=== PATIENT | female | born 1945 | race Caucasian/White ===

== ENCOUNTER 2019-09-11 08:49 | Outpatient (CLI) | payer MEDICARE, MEDICAID, SELFPAY ==
--- NOTE | 2019-09-11 09:01 | XR_ITS ---
WS: [id number] KUB, 09/11/2019 Clinical Data: CALCULUS OF URETER Comparison: KUB, 03/08/2019. Findings: There are numerous vascular calcifications overlying both kidneys. There are vascular calcifications of the abdominal aorta which is tortuous. No aneurysm is seen. There are vascular calcifications of t he iliac arteries and femoral arteries. No obvious intrarenal or ureteral calculi are seen but they c ould be obscured by the vascular calcifications. Degenerative changes of the lumbar vertebral bodies is noted. There is a large amount of fecal material throughout the colon. There are healed fractures of the right superior and inferior pubic ramus XR/XR KUB [id number] Impression: 1. Negative for definite renal or ureteral calculi. 2. Extensive vascular calcifications could obscure renal and ureteral calculi.
== END 2019-09-11 08:50 | disposition home or self-care (01) ==
LOC: RAD 08:56
PROVIDERS: Family Provider Family Medicine; PCP Family Medicine; Visit Provider Urology
DX: N20.1 Calculus of ureter (principal)
CPT/HCPCS: 74018

== ENCOUNTER 2019-10-12 16:28 | Emergency (ER) | payer MEDICARE, MEDICAID, SELFPAY ==
[2019-10-12 16:31] VITALS: BP 161/88; PULSE 106; RESP 16; TEMP 38.2; O2SAT 94; BMI 19.7
--- NOTE | 2019-10-12 16:39 | ED_ITS ---
Entered by Agustina Naik, acting as scribe for HPI - Abdominal Pain General: Chief Complaint: Abdominal Pain Stated Complaint: LOW BACK/ LOW ABDOMINAL PAIN Time Seen by Provider: 10/12/19 16:39 Source: EMS Mode of arrival: EMS Limitations: altered mental status History of Present Illness: MD elicited complaint: abdominal pain (per EMS) Onset (ago): day(s) (today) Location: None Severity: mild Radiation: none Associated Symptoms: Reports dysuria; Denies chills, diarrhea, fever(s), nausea and vomiting Review of Systems Const: Denies: fever, chills, body aches or change in appetite Eyes: Denies: blurry vision or eye discomfort ENMT: Denies: throat pain or dental pain Card: Denies: chest pain Resp: Denies: shortness of breath GI: Denies: abdominal pain, nausea, vomiting or diarrhea : Reports: painful urination Musc: Denies: neck pain or back pain Skin/Breast: Denies: rash Neuro: Denies: headache Psych: Denies: depression Jadiel/Lymph: Denies: easy bruising All/Imm: Denies: hives PFSH ED PFSH: Medical History (Updated 10/12/19 @ 19:15 by Victoria Kuhn MD) Calculus of left ureter History of kidney stones Obstructive pyelonephritis Urinary tract infection, site not specified Social History Smoking and tobacco status: unknown if ever smoked Alcohol intake: never Marital status: Current occupational status: retired Physical Exam Const: COMMON NORMALS: no apparent distress and healthy appearing HENMT: COMMON NORMALS: normocephalic and head/scalp atraumatic HEAD & SCALP: normocephalic and atraumatic Eye: COMMON NORMALS: PERRL and EOMs intact bilaterally PUPIL: Yes PERRL Neck/C-Spine: COMMON NORMALS: full ROM and supple Chest: COMMONS NORMALS: inspection of chest normal and palpation of chest normal Resp: COMMON NORMALS: normal respiratory effort, no retractions, no use of accessory muscles and clear to auscultation bilaterally AUSCULTATION: clear to auscultation bilaterally Cardio: COMMON NORMALS: regular rate, regular rhythm and no murmurs RATE: regular rate RHYTHM: regular rhythm GI: COMMON NORMALS: normal to inspection, nondistended, normoactive bowel sounds, soft to palpation, non-tender and no masses PALPATION: Yes soft Extremity: COMMON NORMALS: normal to inspection and full ROM Neuro: COMMON NORMALS: moves all extremities and no focal motor deficits Psych: COMMON NORMALS: mental status grossly normal, thought process normal and cooperative THOUGHT PROCESS: normal thought process Skin: COMMON NORMALS: no rashes or lesions noted and no wounds GENERAL SKIN EXAM: no rashes or lesions noted Course Vital Signs: Vital signs: Vital Signs Temperature 100.8 F H 10/12/19 16:31 Pulse Rate 67 10/13/19 01:00 Respiratory Rate 16 10/13/19 01:00 Blood Pressure 161/88 10/12/19 16:31 Pulse Oximetry 97 10/13/19 01:00 MDM - Abdominal Pain MDM Narrative: Medical decision making narrative: I took this patient over from Dr. Hancock. Patient does have a urinary tract infection. Will start on Macrobid and given IV Rocephin here. Patient is stable to go back to the snf and is to return if worsening. Lab Data: Labs: Lab Results 10/12/19 10/12/19 10/12/19 Range/Units 17:03 17:03 18:00 WBC 13.2 H (4.0-10.0) 10^3/ uL RBC 3.95 L (4.1-5.3) 10^6/u L Hgb 11.6 (11.5-15.3) g/dL Hct 34.2 L (37.0-47.0) % MCV 86.6 (81-99) fL MCH 29.4 (28.0-34.0) pg MCHC 33.9 (30.0-36.0) g/dL RDW 12.3 (12.1-15.1) % Plt Count 292 (130-400) 10^3/c mm MPV 8.7 (7.4-10.4) fL Neut % (Auto) 79.8 % Lymph % (Auto) 11.3 % [place] % (Auto) 8.3 % Eos % (Auto) 0.2 % Baso % (Auto) 0.2 % Neut # (Auto) 10.6 H (1.8-7.7) 10^3/u L Lymph # (Auto) 1.5 (0.8-4.8) 10^3/u L [place] # (Auto) 1.1 H (0.2-0.9) 10^3/u L Eos # (Auto) 0.0 (0.0-0.8) 10^3/u L Baso # (Auto) 0.0 (0.0-0.1) 10^3/u L Nucleated RBC % (a uto) 0 % Nucleated RBCs # 0.0 /100WBC Sodium 135 L (136-145) mmol/L Potassium 3.7 (3.5-5.1) mmol/L Chloride 96 L (98-107) mmol/L Carbon Dioxide 24 (22-29) mmol/L Anion Gap 18.7 (5-19) BUN 11 (8-23) mg/dL Creatinine 0.6 (0.5-0.9) mg/dL Glucose 126 H (65-115) mg/dL Calcium 9.8 (8.5-10.5) mg/dL Total Bilirubin 0.9 (0.15-1.2) mg/dL AST 18 (0-32) U/L ALT 11 (0-33) U/L Alkaline Phosphata se 114 H (35-105) IU/L Total Protein 7.3 (6.6-8.7) g/dL Albumin 3.9 (3.5-5.2) g/dL Globulin 3.4 (1.3-4.6) g/dL Urine Color Yellow (Yellow) Urine Appearance Hazy A (CLEAR) Urine pH 7 (5-7) Ur Specific Gravit y 1.005 (1.005-1.030) Urine Protein Trace (Negative) Urine Glucose (UA) Norm (Normal) Urine Ketones 1+ H (Negative) Urine Occult Blood Neg (Negative) Urine Nitrate Positive H (Negative) Urine Bilirubin Neg (NEGATIVE) Urine Urobilinogen Norm (Negative) mg/dL Ur Leukocyte Aixa ase Negative (Negative) Urine RBC 0-4 H (0-2) /hpf Urine WBC 5-10 H (0-5) /hpf Ur Squamous Epith Cells 25-40 H (0-5) Urine Bacteria 2+ H (NONE) Discharge Plan Discharge Patient Disposition: Home, Self-Care Clinical Impression: Acute cystitis Qualifiers: Hematuria presence: without hematuria Qualified Code(s): N30.00 - Acute cystitis without hematuria Condition: Stable Prescriptions: New Macrobid 100 mg capsule 100 mg PO BID 7 Days Qty: 14 RF: 0 No Action acetaminophen [Tylenol] 325 mg capsule 650 mg PO Q6H PRN (Reason: Pain) RF: 0 levothyroxine 25 mcg capsule 25 mcg PO DAILY RF: 0 lisinopril 10 mg tablet 10 mg PO DAILY RF: 0 multivitamin Tablet 1 tab PO QAM RF: 0 Discharge Orders: Discharge Order (Routine); Ordered 10/12/19 Ordered By: Victoria Kuhn Referrals: Lzieth Britton MD [Primary Care Provider] - Discharge Diet: Advance as tolerated Discharge Activity: Resume usual activity Patient Instructions: Urinary Tract Infection in Women (ED) Coding Level of Care Code ED Floor Covering Printer for Chg Fwd Exam Comprehensive The documentation recorded by the Gumaro eubanks Bridget Annette, accurately reflects the service I personally performed and the decisions made by Bam rasmussen Korby, MD Oct 12, 2019 16:28
[2019-10-12 17:16] LABS: Basophils % 0.2 %; Eosinophils % 0.2 %; Hematocrit 34.2 % (37.0-47.0); Hemoglobin 11.6 g/dL (11.5-15.3); Lymphocytes # 1.5 10^3/uL (0.8-4.8); Lymphocytes % 11.3 %; Mean Corpuscular HGB Conc 33.9 g/dL (30.0-36.0); Mean Corpuscular Hemoglobin 29.4 pg (28.0-34.0); Mean Corpuscular Volume 86.6 fL (81-99); Mean Platelet Volume 8.7 fL (7.4-10.4); Monocytes # 1.1 10^3/uL (0.2-0.9); Monocytes % 8.3 %; Neutrophils # 10.6 10^3/uL (1.8-7.7); Neutrophils % 79.8 %; Nucleated Red Blood Cells % 0 %; Platelet Count 292 10^3/cmm (130-400); Red Blood Count 3.95 10^6/uL (4.1-5.3); Red Cell Distribution Width 12.3 % (12.1-15.1); White Blood Count 13.2 10^3/uL (4.0-10.0)
[2019-10-12 17:34] LABS: Alanine Aminotransferase 11 U/L (0-33); Albumin Level 3.9 g/dL (3.5-5.2); Alkaline Phosphatase 114 IU/L (35-105); Anion Gap 18.7 (5-19); Aspartate Amino Transferase 18 U/L (0-32); Blood Urea Nitrogen 11 mg/dL (8-23); Calcium 9.8 mg/dL (8.5-10.5); Carbon Dioxide 24 mmol/L (22-29); Chloride 96 mmol/L (98-107); Globulin 3.4 g/dL (1.3-4.6); Glucose 126 mg/dL (65-115); Potassium 3.7 mmol/L (3.5-5.1); Sodium 135 mmol/L (136-145); Total Bilirubin 0.9 mg/dL (0.15-1.2); Total Protein 7.3 g/dL (6.6-8.7)
[2019-10-12] MEDS: cefTRIAXone 1,000 MG in sodium chloride 0.9% (plus) 50 ML 100 MG IV (18:26)
[2019-10-12 18:32] LABS: Add Urine Microscopic? YES; Bilirubin Urine Neg (NEGATIVE); Blood Urine Neg (Negative); Glucose Urine UA Norm (Normal); Ketones Urine 1+ (Negative); Leukocyte Esterase Urine Negative (Negative); Nitrate Urine Positive (Negative); Protein Urine Trace (Negative); Specific Gravity, Urine 1.005 (1.005-1.030); Urine Appearance Hazy (CLEAR); Urine Color Yellow (Yellow); Urobilinogen Urine Norm (Negative); pH Urine 7 (5-7)
[2019-10-12 18:44] LABS: RBC Urine 0-4 /hpf (0-2)
[2019-10-12 18:45] LABS: Add Urine Culture? No; Bacteria Urine 2+; Squamous Epithelial Cell Urine 25-40 (0-5)
[2019-10-13 01:00] VITALS: PULSE 67; RESP 16; O2SAT 97
[2019-10-13 03:00] VITALS: PULSE 72; RESP 18; O2SAT 96
--- NOTE | 2019-10-13 03:30 | PC.NURSE ---
Introduced self to patient and initiated vital signs. Pt is A&O x 4. Pt states that the reason for the ER visit today is due to bilateral ear pain which presented around 0030 this morning. Reassured patient of needs and will continue to monitor.
[2019-10-13 06:00] VITALS: PULSE 78; RESP 16; O2SAT 97
[2019-10-13 07:30] VITALS: BP 109/76; PULSE 89; RESP 16; TEMP 37.7; O2SAT 95
== END 2019-10-13 07:32 | disposition home or self-care (01) ==
PROVIDERS: Family Medicine; Emergency Provider Emergency Medicine; Family Provider Family Medicine; PCP Family Medicine
DX: N30.00 Acute cystitis without hematuria (principal)
CPT/HCPCS: 36415; 51701; 80053; 81001; 85025; 87040; 96365; 99284; J0696

== ENCOUNTER 2020-06-26 13:12 | Inpatient (IN) | payer MEDICARE, MEDICAID, SELFPAY ==
[2020-06-26] VITALS (10 sets, daily range): BP systolic 96–211; BP diastolic 62–145; PULSE 83–128; RESP 16–49; TEMP 36.2–36.7; O2SAT 95–100; BMI 15.6
--- NOTE | 2020-06-26 13:54 | CTR_ITS ---
PROCEDURE INFORMATION: Exam: CT Head Without Contrast Exam date and time: 06/26/2020 2:09 PM Age: 75 years old Clinical indication: Other: Symptoms of acute stroke; Prior surgery TECHNIQUE: Imaging protocol: Computed tomography of the head without contrast. Radiation optimization: All CT scans at this facility use at least one of these dose optimization techniques: automated exposure control; mA and/or kV adjustment per patient size (includes targeted exams where dose is matched to clinical indication); or iterative reconstruction. COMPARISON: CT head wo con* [id number] 06/14/2018 3:19 PM RADIATION DOSE METRICS: Total DLP (mGy-cm): 791.61 FINDINGS: Brain: Chronic encephalomalacia is present in the bilateral cerebellar hemispheres, bilateral occipital lobes, bilateral posterior parietal lobes, bilateral frontal lobes, and the right frontoparietal convexity. There is no acute intracranial hemorrhage, cerebral edema, or midline shift. Benign calcifications are noted in the bilateral basal ganglia. Chronic microvascular ischemic changes are seen in the periventricular white matter. Advanced cerebral and cerebellar volume loss is present. Cerebral ventricles: Moderate ex vacuo dilation of the ventricular system is noted. Bones/joints: No acute fracture. Paranasal sinuses: There is no acute sinusitis. Mastoid air cells: The mastoid air cells are clear. Orbital cavity: The included orbital structures are unremarkable. Vasculature: Atherosclerotic calcifications are seen involving the cavernous carotid arteries. Soft tissues: Unremarkable. CT/CT head wo con* [id number] IMPRESSION: 1. No acute intracranial abnormality. 2. Chronic findings as discussed above. 3. [place] Stroke Program Early CT Score (ASPECTS) = 10 Radiation Dose CTDIVOL = (mGy): DLP = 791.61 (mGy-cm)
--- NOTE | 2020-06-26 13:54 | ECG_ITS ---
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1945 Requested By: Keisha Melendez I Order Number: [id number] Reading MD: LAURYN KRISHNAN Measurements Intervals [place] Rate: 124 P: -79 PA: 96 QRS: 1 QRSD: 72 T: -47 QT: 305 QTc: 439 Interpretive Statements Sinus TACHYCARDIA INDETERMINATE AXIS PATTERN CONSISTENT WITH PULMONARY DISEASE PROBABLE INFERIOR MYOCARDIAL INFARCTION , OF INDETERMINATE AGE [35 ms Q WAVE IN II/aVF] MODERATE T-WAVE ABNORMALITY, CONSIDER LATERAL ISCHEMIA [-0.1+ mV T WAVE IN I/aVL/V5/V6] Compared to ECG 08/23/2018 10:44:34 There is sinus tachycardia Electronically Signed On 06-26-2020 21:04:04 CDT by LAURYN KRISHNAN [email or web address]
--- NOTE | 2020-06-26 13:55 | XR_ITS ---
WS: [id number] Exam: XR chest 1V portable [id number] Date/Time of Exam: 06/26/2020 1:55 PM Reason For Exam: AMS Comparison 06/14/2018. The lungs are fully expanded and clear. Heart size is normal. The mediastinum is not widened. Promine nt hiatal hernia. Signs of median sternotomy. No pleural effusions. Regional bony elements are intact . XR/XR chest 1V portable [id number] IMPRESSION: 1. No acute cardiopulmonary finding. 2. Prominent hiatal hernia. No change.
--- NOTE | 2020-06-26 13:56 | W.ED.AMS ---
HPI - Altered Mental Status General: Chief Complaint: Altered Mental Status Stated Complaint: DECREASED LOC/ COVID POSITIVE Time Seen by Provider: 06/26/20 13:20 Source: family (Guardian, Jacki Barcenas) and EMS Mode of arrival: EMS Limitations: altered mental status History of Present Illness: HPI narrative: Patient is a 75-year-old resident of a intermediate who was recently diagnosed with COVID-19 but has completed her 14-day quarantine and had been improving until today when she became unresponsive. The intermediate denies any fever, denies any vomiting, and her guardian wanted the patient evaluated in the emergency department. When I spoke to her guardian she said the patient has had a history of pneumonia, UTI, and has a big kidney stone that could not be surgically removed and so a stent was placed. She wanted to be checked for pneumonia, UTI especially. MD complaint: altered mental status and decreased responsiveness Onset (ago): hour(s) Review of Systems General: Reports: ROS unobtainable due to mental status PFSH ED PFSH: Medical History (Reviewed 06/26/20 @ 14:00 by Keisha Melendez [place], [facility] [place] Calculus of left ureter History of kidney stones Obstructive pyelonephritis Urinary tract infection, site not specified Family History Family/Other Diabetes Mother No problems noted. Father No problems noted. Social History (Reviewed 06/26/20 @ 14:00 by Keisha Melendez MD, [facility] [place] Smoking and tobacco status: unknown if ever smoked Alcohol intake: never Marital status: Current occupational status: retired Physical Exam Const: COMMON NORMALS: no acute distress EXAM LIMITATIONS: altered mental status NUTRITIONAL APPEARANCE: underweight HENMT: COMMON NORMALS: normocephalic and atraumatic HEAD & SCALP: normocephalic and atraumatic Resp: COMMON NORMALS: normal respiratory effort, No retractions, No use of accessory muscles and clear to auscultation bilaterally AUSCULTATION: clear to auscultation bilaterally Cardio: COMMON NORMALS: regular rhythm, S1 normal heart sound present, S2 normal heart sound present and No murmurs present (Cardio) RATE: tachycardic RHYTHM: regular rhythm HEART SOUNDS: S1 normal heart sound present and S2 normal heart sound present Neuro: JONNA COMA SCALE: document GCS findings Jonna coma scale eye opening: Spontaneous Jonna coma scale verbal response: None Granger coma scale motor response: Localising Jonna coma scale total score: 10 Skin: GENERAL SKIN EXAM: mottling (feet) Course ED course: Patient who was brought in to the ED from a [place] with altered mental status. She appeared pretty ill in the ED. Her care was complicated by inability to obtain blood from the patient. Her blood was very thick and did not drain. She is severely dehydrated and has multiple electrolyte abnormalities including critical azotemia and significant hyernatremia, DENISE, hyperbilirubinemia. I discussed with her guardian, Jacki Barcenas when the patient first arrived. and she wanted the patient evaluated fully. After evaluation i also discussed with her again and she would like the patient to aggressively managed. The patient has DNR orders but the guardian had discussed with her family and they would like aggressive care. They would like CPR and intubation (but only if we think she can come off the vent). I explained that this is very likely the beginning of the dying process for this patient and i do not think she will do well. She voiced understanding but at this time would still want us to be aggressive. The patient is admitted for hydration and further work up. Hopefully we can get more blood samples when she is better hydrated. Consultations: Consultation #1: Dr. Hong, hospitalist and he kindly accepted the patient to his service. Vital Signs: Vital signs: Vital Signs Temperature 97.2 F L 06/26/20 23:42 Pulse Rate 83 06/26/20 23:42 Respiratory Rate 26 H 06/26/20 23:42 Blood Pressure 96/62 06/26/20 23:42 Pulse Oximetry 95 06/26/20 23:42 MDM - Altered Mental Status MDM Narrative: Medical decision making narrative: 75 year old female [place] resident with AMS. She was very dehydrated, likely dying, and is unlikely to survive this admission. She has multiple electrolyte abnormalities. She is admitted for hydration and to see if she would improve. No obvious source of infection noted but she is given empiric antibiotics. Medical Records: Attestation: I reviewed the patient's medical records. Lab Data: Attestation: I reviewed the patient's lab results. Labs: Lab Results 10/29/20 10/29/20 10/29/20 Range/Units 15:05 18:00 18:00 WBC 26.7 H (4.0-10.0) 10^3/ uL RBC 6.18 H (4.1-5.3) 10^6/u L Hgb 17.8 H (11.5-15.3) g/dL Hct 58.7 H (37.0-47.0) % MCV 95.0 (81-99) fL MCH 28.8 (28.0-34.0) pg MCHC 30.3 (30.0-36.0) g/dL RDW 13.9 (12.1-15.1) % Plt Count 256 (130-400) 10^3/c mm MPV 11.5 H (7.4-10.4) fL Neut % (Auto) 89.2 % Lymph % (Auto) 4.2 % [place] % (Auto) 5.4 % Eos % (Auto) 0.0 % Baso % (Auto) 0.3 % Neut # (Auto) 23.87 H (1.8-7.7) 10^3/u L Lymph # (Auto) 1.1 (0.8-4.8) 10^3/u L [place] # (Auto) 1.5 H (0.2-0.9) 10^3/u L Eos # (Auto) 0.0 (0.0-0.8) 10^3/u L Baso # (Auto) 0.1 (0.0-0.1) 10^3/u L Nucleated RBC % (a uto) 0.1 % Nucleated RBCs # 0.0 /100WBC PT (12.1-14.9) SECO NDS INR (0.8-1.2) Sodium 159 H (136-145) mmol/L Potassium 4.0 (3.5-5.1) mmol/L Chloride 115 H (98-107) mmol/L Carbon Dioxide 23 (22-29) mmol/L Anion Gap 25.0 H (5-19) BUN 87 H* D (8-23) mg/dL Creatinine 1.7 H (0.5-0.9) mg/dL GFR Calculation Not Reportable Glucose 202 H (65-115) mg/dL Calculated Osmolal ity 360 H (285-295) mOsm/k g Calcium 10.9 H (8.5-10.5) mg/dL Total Bilirubin 1.3 H (0.15-1.2) mg/dL AST 171 H (0-32) U/L ALT 210 H (0-33) U/L Alkaline Phosphata se 203 H (35-105) IU/L Troponin T Gen 5 n g/L (0-10) ng/L C-Reactive Protein 42.1 H (0.0-4.9) mg/L Total Protein 8.2 (6.6-8.7) g/dL Albumin 3.9 (3.5-5.2) g/dL Globulin 4.3 (1.3-4.6) g/dL Urine Color Dark yellow (Yellow) Urine Appearance Hazy A (CLEAR) Urine pH 5 (5-7) Ur Specific Gravit y 1.020 (1.005-1.030) Urine Protein 1+ H (Negative) Urine Glucose (UA) Norm (Normal) Urine Ketones Negative (Negative) Urine Blood Trace H (Negative) Urine Nitrate Negative (Negative) Urine Bilirubin 1+ H (Negative) Urine Urobilinogen 4 H (Negative) mg/dL Ur Leukocyte [place]ixa ase Negative (Negative) Urine RBC 0-4 H (0-2) /hpf Urine WBC None (0-5) /hpf Ur Squamous Epith Cells 5-10 H (0-5) /hpf Amorphous Sediment 3+ /hpf Urine Bacteria 2+ H (NONE) /hpf 06/26/20 06/26/20 Range/Units 19:51 20:12 WBC (4.0-10.0) 10^3/ uL RBC (4.1-5.3) 10^6/u L Hgb (11.5-15.3) g/dL Hct (37.0-47.0) % MCV (81-99) fL MCH (28.0-34.0) pg MCHC (30.0-36.0) g/dL RDW (12.1-15.1) % Plt Count (130-400) 10^3/c mm MPV (7.4-10.4) fL Neut % (Auto) % Lymph % (Auto) % [place] % (Auto) % Eos % (Auto) % Baso % (Auto) % Neut # (Auto) (1.8-7.7) 10^3/u L Lymph # (Auto) (0.8-4.8) 10^3/u L [place] # (Auto) (0.2-0.9) 10^3/u L Eos # (Auto) (0.0-0.8) 10^3/u L Baso # (Auto) (0.0-0.1) 10^3/u L Nucleated RBC % (a uto) % Nucleated RBCs # /100WBC PT 18.10 H (12.1-14.9) SECO NDS INR 1.45 H (0.8-1.2) Sodium (136-145) mmol/L Potassium (3.5-5.1) mmol/L Chloride (98-107) mmol/L Carbon Dioxide (22-29) mmol/L Anion Gap (5-19) BUN (8-23) mg/dL Creatinine (0.5-0.9) mg/dL GFR Calculation Glucose (65-115) mg/dL Calculated Osmolal ity (285-295) mOsm/k g Calcium (8.5-10.5) mg/dL Total Bilirubin (0.15-1.2) mg/dL AST (0-32) U/L ALT (0-33) U/L Alkaline Phosphata se (35-105) IU/L Troponin T Gen 5 n g/L 81 H (0-10) ng/L C-Reactive Protein (0.0-4.9) mg/L Total Protein (6.6-8.7) g/dL Albumin (3.5-5.2) g/dL Globulin (1.3-4.6) g/dL Urine Color (Yellow) Urine Appearance (CLEAR) Urine pH (5-7) Ur Specific Gravit y (1.005-1.030) Urine Protein (Negative) Urine Glucose (UA) (Normal) Urine Ketones (Negative) Urine Blood (Negative) Urine Nitrate (Negative) Urine Bilirubin (Negative) Urine Urobilinogen (Negative) mg/dL Ur Leukocyte Aixa ase (Negative) Urine RBC (0-2) /hpf Urine WBC (0-5) /hpf Ur Squamous Epith Cells (0-5) /hpf Amorphous Sediment /hpf Urine Bacteria (NONE) /hpf EKG Data^: EKG 1: Attestation: I personally reviewed and interpreted this EKG as follows: EKG interpretation date: 06/26/20 EKG interpretation time: 14:05 Prior EKG tracings: not available for review Computer generated interpretation: [facility] [address] [place] [address] Electrocardiograph Report Signed Patient: Nicol Hernandes #: [id number] : 5Acct#:[id number] Age/Sex: 75 / FADM Date: 06/26/20 [facility] Attending Dr: Ordering Provider/Ordering MD: Keisha Melendez MD, [facility] [place] of Service: 06/26/20 Procedure(s): ECG 12 lead EKG Accession Number(s): [id number] Report [id number]: [id number] [facility] Test Date: 2020-06-26 Pat Name: Bree Hernandes Department: Room: Gender: Female 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1945 Requested By: Keisha Melendez I Order Number: [id number] Reading MD: CROW CARMICHAEL Measurements Intervals [place] Rate: 124 P: -79 [place]: 96 QRS: 1 QRSD: 72 T: -47 QT: 305 QTc: 439 Interpretive Statements Sinus TACHYCARDIA INDETERMINATE AXIS PATTERN CONSISTENT WITH PULMONARY DISEASE PROBABLE INFERIOR MYOCARDIAL INFARCTION , OF INDETERMINATE AGE [35 ms Q WAVE IN II/aVF] MODERATE T-WAVE ABNORMALITY, CONSIDER LATERAL ISCHEMIA [-0.1+ mV T WAVE IN I/aVL/V5/V6] Compared to ECG 08/23/2018 10:44:34 There is sinus tachycardia Electronically Signed On 06-26-2020 21:04:04 CDT by CROW CARMICHAEL [id number] Dictated By:Crow Carmichael MD Signed By:Crow Carmichael MDSigned Date/Time:06/26/202104 DD/ 04 Discharge Plan Discharge Patient Disposition: Admitted As Inpatient Admit Provider: Weston Hong Clinical Impression: Acute hypernatremia, Acute prerenal azotemia, Acute kidney injury, Elevated troponin Altered mental status Qualifiers: Altered mental status type: coma Coma depth: Jonna coma 9-12 Coma timing: in the field (EMT or ambulance) Qualified Code(s): R40.2421 - Gr[place] coma scale score 9-12, in the field [EMT or ambulance] Condition: Stable Interventions: ED Discharge Assessment Last Done: 06/26/20 23:19 ED Charges Last Done: 06/26/20 23:19 Discharge Date/Time: 06/26/20 23:38 Coding Level of Care Code ED Diesel Service Apprentice for Chg Fwd Exam Detailed
[2020-06-26 15:29] LABS: Urine Appearance Hazy (CLEAR); Urine Color Dark Yellow (Yellow)
[2020-06-26 15:30] LABS: Add Urine Microscopic? YES; Bilirubin Urine 1+ (Negative); Blood Urine Trace (Negative); Glucose Urine UA Norm (Normal); Ketones Urine Negative (Negative); Leukocyte Esterase Urine Negative (Negative); Nitrate Urine Negative (Negative); Protein Urine 1+ (Negative); Urobilinogen Urine 4 mg/dL (Negative); pH Urine 5 (5-7)
[2020-06-26 15:38] LABS: RBC Urine 0-4 /hpf (0-2)
[2020-06-26 15:39] LABS: Add Urine Culture? No; Amorphous Sediment Urine 3+ /hpf; Bacteria Urine 2+ /hpf
[2020-06-26 18:22] LABS: Basophils # 0.1 10^3/uL (0.0-0.1); Basophils % 0.3 %; Hematocrit 58.7 % (37.0-47.0); Hemoglobin 17.8 g/dL (11.5-15.3); Lymphocytes # 1.1 10^3/uL (0.8-4.8); Lymphocytes % 4.2 %; Mean Corpuscular HGB Conc 30.3 g/dL (30.0-36.0); Mean Corpuscular Hemoglobin 28.8 pg (28.0-34.0); Mean Platelet Volume 11.5 fL (7.4-10.4); Monocytes # 1.5 10^3/uL (0.2-0.9); Monocytes % 5.4 %; Neutrophils # 23.87 10^3/uL (1.8-7.7); Neutrophils % 89.2 %; Nucleated Red Blood Cells % 0.1 %; Platelet Count 256 10^3/cmm (130-400); Red Blood Count 6.18 10^6/uL (4.1-5.3); Red Cell Distribution Width 13.9 % (12.1-15.1); White Blood Count 26.7 10^3/uL (4.0-10.0)
[2020-06-26] MEDS: sodium chloride 0.9% 1,000 ML 999 ML IV (18:24)
--- NOTE | 2020-06-26 18:26 | CTR_ITS ---
PROCEDURE INFORMATION: Exam: CT Chest Without Contrast Exam date and time: 06/26/2020 6:32 PM Age: 75 years old Clinical indication: Abdominal tenderness; Shortness of breath; Patient HX: Best images possible. PT AMS; Additional info: Altered mental status TECHNIQUE: Imaging protocol: Computed tomography of the chest without contrast. Radiation optimization: All CT scans at this facility use at least one of these dose optimization techniques: automated exposure control; mA and/or kV adjustment per patient size (includes targeted exams where dose is matched to clinical indication); or iterative reconstruction. COMPARISON: CT abdomen pelvis wo con [id number] 06/15/2018 3:04 PM RADIATION DOSE METRICS: Total DLP (mGy-cm): 919 FINDINGS: Lungs: Patchy very subtle ground-glass interstitial lung disease right upper and right lower lobe which could reflect active interstitial pneumonitis. No visible consolidation. Left lung without visible active interstitial or alveolar airspace disease. Pleural space: Unremarkable. No pneumothorax. No pleural effusion. Heart: Advanced 3 vessel coronary artery disease. No visible cardiomegaly. No visible pericardial effusion. Status post sternotomy chest and CABG. Mediastinal space: Large hiatal hernia. Nonocclusive mucous in the distal trachea to the mo and proximal bilateral mainstem bronchus. Aorta: Tortuous thoracic aorta which can be seen in hypertensive cardiovascular disease. Advanced arteriosclerosis. Lymph nodes: No visible active mediastinal or hilar lymphadenopathy. Bones/joints: Marked increase in the thoracic kyphosis with advanced osteopenia/osteoporosis. Old compression deformity T8. No visible acute osseous abnormality. Soft tissues: Unremarkable. Other findings: Motion artifact. IMPRESSION: 1. Patchy very subtle ground-glass interstitial lung disease right upper and right lower lobe which could reflect active interstitial pneumonitis. 2. Other nonurgent, nonemergent, chronic, and age related findings as detailed in text above. PROCEDURE INFORMATION: Exam: CT Abdomen And Pelvis Without Contrast Exam date and time: 06/26/2020 6:32 PM Age: 75 years old Clinical indication: Abdominal tenderness; Shortness of breath; Patient HX: Best images possible. PT AMS; Additional info: Altered mental status TECHNIQUE: Imaging protocol: Computed tomography of the abdomen and pelvis without contrast. Radiation optimization: All CT scans at this facility use at least one of these dose optimization techniques: automated exposure control; mA and/or kV adjustment per patient size (includes targeted exams where dose is matched to clinical indication); or iterative reconstruction. COMPARISON: CT abdomen pelvis wo con [id number] 06/15/2018 3:04 PM RADIATION DOSE METRICS: Total DLP (mGy-cm): 919 FINDINGS: Liver: Unremarkable. No mass. Gallbladder and bile ducts: Enlarged gallbladder. Suspected moderate amount of gallbladder sludge. No visible form cholelithiasis. Pancreas: Mildly atrophic pancreas. No visible pancreatic ductal ectasia. Spleen: Normal. No splenomegaly. Adrenal glands: Normal. No mass. Kidneys and ureters: Kidneys unremarkable for age. No hydronephrosis or perinephric fluid evident. Extensive renal arteriosclerosis. Stomach and bowel: Large hiatal hernia. Rectal fecal impaction. No visible diverticulitis. Currently nonobstructive bowel pattern. No visible adynamic or reactive ileus. Appendix: No evidence of appendicitis. Intraperitoneal space: No visible intraperitoneal ascites. Vasculature: Infrarenal fusiform abdominal aortic aneurysm measuring approximately 29 mm in AP diameter in 30 mm in transverse diameter. Advanced arterial sclerotic disease. Tortuous abdominal aorta which can be seen in hypertensive disease. Extensive arteriosclerosis of all vascular structures within the field of view. Lymph nodes: Unremarkable. No enlarged lymph nodes. Urinary bladder: Urinary bladder unremarkable. Reproductive: Status post hysterectomy. Bones/joints: Advanced degenerative disc disease of the spine. Mild scoliotic curvature. Osteopenia/osteoporosis. Facet arthrosis. No visible acute osseous abnormality. Soft tissues: Cachexia. CT/CT chest abd pel wo con IMPRESSION: 1. Currently no visible evidence of acute abdominal or pelvic pathologic process. 2. Rectal fecal impaction. 3. Enlarged gallbladder. Suspected moderate amount of gallbladder sludge. No visible form cholelithiasis. 4. Stable mild infrarenal fusiform aneurysmal dilatation of the abdominal aorta. 5. Advanced arterial sclerotic disease. 6. Other nonurgent, nonemergent, chronic, and age related findings as detailed in text above. Radiation Dose CTDIVOL = (mGy): DLP = 919~919 (mGy-cm)
[2020-06-26 19:13] LABS: Alanine Aminotransferase 210 U/L (0-33); Albumin Level 3.9 g/dL (3.5-5.2); Alkaline Phosphatase 203 IU/L (35-105); Aspartate Amino Transferase 171 U/L (0-32); C Reactive Protein 42.1 mg/L (0.0-4.9); Calcium 10.9 mg/dL (8.5-10.5); Carbon Dioxide 23 mmol/L (22-29); Chloride 115 mmol/L (98-107); Globulin 4.3 g/dL (1.3-4.6); Glucose 202 mg/dL (65-115); Osmolality Calculated 360 mOsm/kg (285-295); Sodium 159 mmol/L (136-145); Total Bilirubin 1.3 mg/dL (0.15-1.2); Total Protein 8.2 g/dL (6.6-8.7)
[2020-06-26 19:52] LABS: Blood Urea Nitrogen 87 mg/dL (8-23)
[2020-06-26 21:07] LABS: Troponin T (5th) Once 81 ng/L (0-10)
[2020-06-26] MEDS: piperacillin-tazobactam 3.375 GM in sodium chloride 0.9% (plus) 50 ML IV (21:25)
[2020-06-26] MEDS: dextrose 5%-sod chloride 0.45% 1,000 ML 100 ML IV (22:07)
--- NOTE | 2020-06-26 22:18 | PM.HP ---
Providers/Chief Complaint Admitting Physician: Weston Hong Primary Care Provider: Lizeth Britton MD Chief Complaint: DECREASED LOC/ COVID POSITIVE History of Present Illness 75-year-old female with a past medical history significant for obstructive uropathy, UTI/pyelonephritis and COVID-19 apparently diagnosed over 2 weeks prior who was brought to the hospital after she was found to be unresponsive. Patient was difficult to arouse at the time of my evaluation. History was obtained from review of records. Upon arrival patient's laboratory workup showed a WBC of 26.7, hemoglobin of 17.8, hematocrit of 58.7 and platelet count of 256. sodium 159, potassium 4.0, chloride 115, bicarb 23, BUN 87 and creatinine of 1.7. AST of 171, ALT of 210, alkaline phosphatase of 203. Total bilirubin of 1.3. Troponin T of 81, C reactive protein of 42.1. CT chest abdomen pelvis showed patchy very subtle ground-glass interstitial lung disease right upper and right lower lobe consistent with active interstitial pneumonitis. Rectal fecal impaction, enlarged gallbladder, infrarenal fusiform aneurysmal dilation of abdominal aorta. CT head without contrast did not show any acute abnormality. Review of Systems General: Reports: ROS unobtainable due to mental status Medications/Allergies Home Medications Medication Instructions Recorded Confirmed Last Taken Type acetaminophen 325 mg capsule 650 mg PO Q6H PRN 09/11/19 06/26/20 06/24/20 History levothyroxine 25 mcg capsule 25 mcg PO DAILY cap 09/11/19 06/26/20 06/26/20 History lisinopril 10 mg tablet 10 mg PO DAILY tab 09/11/19 06/26/20 06/26/20 History multivitamin 1 tab PO DAILY 09/11/19 06/26/20 06/26/20 History bisacodyl 10 mg [place] DAILY PRN 06/26/20 06/26/20 Unknown History magnesium hydroxide [Milk of 400 mg PO DAILY PRN 06/26/20 06/26/20 07/01/19 History Magnesia] Allergies Allergy/AdvReac Type Severity Reaction Status Date / Time procaine [From Novocain] Allergy NA Verified 09/04/19 08:17 PFSH Acute PFSH: Medical History Calculus of left ureter History of kidney stones Obstructive pyelonephritis Urinary tract infection, site not specified Family History Family/Other Diabetes Mother No problems noted. Father No problems noted. Social History Smoking and tobacco status: unknown if ever smoked Alcohol intake: never Marital status: Current occupational status: retired Vitals/I&O/Wt Last Vital Signs Temp 97.2 F L 06/26/20 23:42 Pulse 83 06/26/20 23:42 Resp 26 H 06/26/20 23:42 BP 96/62 06/26/20 23:42 Pulse Ox 95 06/26/20 23:42 06/26/20 06/26/20 06/27/20 14:59 22:59 06:59 Intake Total 1050 / 1050 Balance 1050 / 1050 Weight last 48 hrs Weight 36.287 kg Physical Exam Narrative: EXAM NARRATIVE: General: Unresponsive, slight arousable to painful stimuli HEENT: grossly unremarkable CHEST: non-labored respiration CVS: Sinus tachy Abd: non-distended Ext ; no edema Data : 06/26/20 18:00 06/26/20 18:00 Micro: Microbiology 06/26/20 15:45 Blood Culture - Preliminary Blood SPECIMEN COLLECTED 06/26/20 15:30 Blood Culture - Preliminary Blood SPECIMEN COLLECTED A&P Assessment and plan (1) Altered mental status: Etiology multi-factorial Baseline unclear Obtain ABG D/w family code status - DNI/DNR Status: Acute Qualifiers: Altered mental status type: coma Coma depth: [place] coma 9-12 Coma timing: in the field (EMT or ambulance) Qualified Code(s): R40.2421 - [place] coma scale score 9-12, in the field [EMT or ambulance] (2) Acute hypernatremia: NS bolus x 2 Free h20 deficit d5w at 75cchr monitor bmp NPO Status: Acute (3) Acute kidney injury: Creatinine 1.7 Repeat bmp in am renally dose medication rivera insertion Status: Acute (4) Elevated troponin: Consider cardiology consult ECHO in am cardiac tele Status: Acute (5) Sepsis: with hypotension Blood culture x 2 urine culture broad spectrum antibuotics Status: Acute (6) Acute respiratory failure with hypoxia: supplemental o2 Bilateral interstitial pneumonitis Recent COVID19 infection Status: Acute Attestations Medical Necessity Statement*: Patient is admitted with sepsis, hypernatremia, acute kidney injury, respiratory failure will likely require over 2 kidney stay in hospital Time Spent in Patient Care: Greater than 35 minutes Coding Level of Care Code 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
[2020-06-26 22:22] LABS: INR 1.45 (0.8-1.2)
[2020-06-26 22:53] LABS: SARS Covid-2 Antigen Negative (Negative)
[2020-06-27] VITALS (59 sets, daily range): BP systolic 84–164; BP diastolic 38–105; PULSE 78–119; RESP 4–39; TEMP 36.3–37.1; O2SAT 92–98
[2020-06-27 00:26] LABS: ABG PCO2 30.1 mmHg (35-45); ABG PH Result 7.39 (7.35-7.45); Arterial Blood Gas Hematocrit 46.7 % (37-47); Base Excess ABG -5.3 mmol/L (-2.0-2.0); Blood Gas Sample Site Brachial, right; Blood Gas Sample Type Arterial; Carboxyhemoglobin 0.8 %THgb (0.4-20.1); HCO3 ABG 18.3 mmol/L (22-26); Ionized Calcium Level - ABG 1.2 mmol/L (1.1-1.4); Methemoglobin 0.9 % (0.4-1.5); Oxygen Device NC; Oxygen Saturation ABG 96.5; PO2 ABG 81.2 mmHg (80.0-100.0); Potassium Level - ABG 2.9 mmol/L (3.5-5.0); Total Hemoglobin 15.2 g/dL (12-16)
--- NOTE | 2020-06-27 01:24 | PC.PHAR ---
Vancomycin is dosed at 500mg IVPB every 48 hours to produce a predicted trough level of 14.59 (population based pharmacokinetic analysis). A trough level has been ordered from the lab to be obtained before the third dose to confirm and adjust if needed.
[2020-06-27] MEDS: famotidine 20 mg/2 mL INJ IVP ×2 (01:29→14:37)
[2020-06-27] MEDS: dextrose 5% 1,000 ML 75 ML IV ×2 (01:30→17:10)
[2020-06-27] MEDS: vancomycin 500 MG in sodium chloride 0.9% (plus) 100 ML 200 MG IV (02:49)
[2020-06-27 05:35] LABS: Hemoglobin 16.3 g/dL (11.5-15.3); Mean Corpuscular HGB Conc 30.8 g/dL (30.0-36.0); Mean Corpuscular Hemoglobin 29.2 pg (28.0-34.0); Platelet Count 214 10^3/cmm (130-400); Red Blood Count 5.58 10^6/uL (4.1-5.3); Red Cell Distribution Width 13.9 % (12.1-15.1); White Blood Count 20.6 10^3/uL (4.0-10.0)
[2020-06-27 05:48] LABS: Lactic Sepsis W/Reflex 3.2 mmol/L (0.5-2.2)
[2020-06-27 06:26] LABS: Alanine Aminotransferase 151 U/L (0-33); Albumin Level 3.3 g/dL (3.5-5.2); Alkaline Phosphatase 157 IU/L (35-105); Aspartate Amino Transferase 87 U/L (0-32); Blood Urea Nitrogen 79 mg/dL (8-23); Calcium 9.1 mg/dL (8.5-10.5); Carbon Dioxide 17 mmol/L (22-29); Chloride 120 mmol/L (98-107); Globulin 3.5 g/dL (1.3-4.6); Glucose 329 mg/dL (65-115); Magnesium 2.6 mg/dL (1.7-2.3); Osmolality Calculated 356 mOsm/kg (285-295); Sodium 155 mmol/L (136-145); Total Protein 6.8 g/dL (6.6-8.7)
[2020-06-27 07:11] LABS: Reflex Lactate Order REFLEX LACTIC ORDERD
[2020-06-27 07:31] LABS: Slide Review Slide Review Perform
--- NOTE | 2020-06-27 07:31 | USCV_ITS ---
Bree Hernandes Age: 75 Gender: F : 1945 Exam Date: 06/27/2020 08:43 Ordering Phys: Jake Malik MD Technologist: Yovanny Hutton [place] [facility] [place]: chest pain BP: 132 / 73 HR: 115 Rhythm: Sinus Technical Quality: Adequate MEASUREMENTS (Male / Female) Normal Values 2D ECHO LV Diastolic Diameter PLAX 2.1 cm 4.2 - 5.9 / 3.9 - 5.3 cm LV Systolic Diameter PLAX 1.6 cm IVS Diastolic Thickness 1.0 cm 0.6 - 1.0 / 0.6 - 0.9 cm IVS Systolic Thickness 1.1 cm LVPW Diastolic Thickness 1.0 cm 0.6 - 1.0 / 0.6 - 0.9 cm LVPW Systolic Thickness 1.1 cm LVOT Diameter 1.9 cm LV Ejection Fraction 2D Teich 52.5 % LV Ejection Fraction MOD 2C 56.9 % LV Ejection Fraction 2C AL 58.0 % LA Diameter 2.4 cm LA Width 2.3 cm LA Height 3.3 cm RA Width 2.1 cm RA Height 2.8 cm M-MODE LV Diastolic Diameter MM 3.0 cm 4.2 - 5.9 / 3.9 - 5.3 cm LV Systolic Diameter MM 1.6 cm LV Ejection Fraction MM Teich 77.8 % IVS Diastolic Thickness MM 0.8 cm 0.6 - 1.0 / 0.6 - 0.9 cm IVS Systolic Thickness MM 1.4 cm LVPW Diastolic Thickness MM 0.8 cm 0.6 - 1.0 / 0.6 - 0.9 cm LVPW Systolic Thickness MM 1.1 cm RV Diastolic Diameter MM 1.1 cm Aortic Annulus Diameter 2.8 cm LA Ao Ratio MM 0.9 MV E Point Septal Separation 0.3 cm DOPPLER AV Peak Velocity 175.0 cm/s LVOT Peak Velocity 125.0 cm/s AV Area Cont Eq vti 2.3 cm squared AV Area Cont Eq pk 2.1 cm squared MV Area PHT 5.0 cm squared Mitral E to A Ratio 0.6 MV E' Velocity 33.5 cm/s Mitral E to MV E' Ratio 7.9 Mitral E to LV E' Lateral Ratio 11.3 Mitral E to LV E' Septal Ratio 6.1 TR Peak Velocity 149.0 cm/s TR Peak Gradient 8.9 mmHg TV Peak E Velocity 66.0 cm/s Right Atrial Pressure 3.0 mmHg Pulmonary Artery Systolic Pressu 11.9 mmHg PV Peak Velocity 111.0 cm/s FINDINGS Left Ventricle Small left ventricular cavity size. Hyperdynamic left ventricular systolic function. Moderate to severe left ventricle hypertrophy. Left ventricle estimated ejection fraction 77%.Grade I/IV diastolic dysfunction (abnormal relaxation filling pattern), normal to mildly elevated filling pressures. No significant gradient across the LVOT or aortic valve noted. Right Ventricle The right ventricle is normal in size and function. Right Atrium The right atrium is normal in size. Left Atrium The left atrium is normal in size. Mitral Valve Moderately thickened mitral valve. Moderate mitral annular calcification. No mitral valve stenosis. No mitral valve regurgitation. Aortic Valve Severely calcified annulus of aortic valve.moderate aortic valve calcification. No aortic valve stenosis. No aortic valve regurgitation. Tricuspid Valve Structurally normal tricuspid valve without significant stenosis or regurgitation. Pulmonary artery systolic pressure is normal. Pulmonic Valve Structurally normal pulmonic valve without significant stenosis. There is no pulmonic regurgitation. Pericardium Normal pericardium without effusion. Aorta Normal ascending aorta dimension. CONCLUSIONS Please note that this is a sub optimal quality images. 1-Small left ventricular cavity size. Hyperdynamic left ventricular systolic function. Moderate to severe left ventricle hypertrophy. Left ventricle estimated ejection fraction 77%.Grade I/IV diastolic dysfunction (abnormal relaxation filling pattern), normal to mildly elevated filling pressures. No significant gradient across the LVOT or aortic valve noted. 2-Moderately thickened mitral valve. Moderate mitral annular calcification. No mitral valve stenosis. No mitral valve regurgitation. 3-Severely calcified annulus of aortic valve.moderate aortic valve calcification. No aortic valve stenosis. No aortic valve regurgitation. 4-Severely calcified annulus of aortic valve.moderate aortic valve calcification. No aortic valve stenosis. No aortic valve regurgitation. 5-There is no pericardial effusion. 6-Pulmonary artery systolic pressure is within normal limits. 7-Due to poor quality and suboptimal images cannot compare with prior exam. Crow Carmichael MD (Electronically Signed) Final Date: 27 June 2020 16:49 S
[2020-06-27 07:44] LABS: Absolute Neutrophil 17.5 10^3/cmm (1.4-6.5); Absolute Segmented Neutrophil 9.5 10/cmm (1.6-7.1); Lymphocytes 7 %; Monocytes Absolute 1.4 10^3/cmm (0.1-0.6); Platelet Estimate Normal (Normal); Segmented Neutrophils 46 %; Total Cells Counted 100 (0-100)
[2020-06-27 08:06] LABS: Glucose Point of Care 227 mg/dL (70-110)
[2020-06-27 08:12] LABS: Eosinophils 0 %
[2020-06-27 08:13] LABS: D Dimer 7.49 ug/mIFEU (0-0.59)
[2020-06-27 08:20] LABS: Estmated Average Glucose 111; Hemoglobin A1C 5.5 % (4.0-6.0)
[2020-06-27 08:22] LABS: NT Pro B Type Natriuretic Pept 4018 pg/mL (0-450); Procalcitonin 1.53 ng/mL (0-0.5)
[2020-06-27 08:23] LABS: Thyroid Stimulating Hormone 0.45 uIU/mL (0.27-4.20)
[2020-06-27 08:34] LABS: Iron 22 ug/dL (37-145); Percent Saturation 14.5 % (20-50); Total Iron Binding Capacity 151 mcg/dl; Unsaturated Iron Binding 129 ug/dL (112-347)
[2020-06-27 08:45] LABS: Lactic Acid level (Lactate) 2.5 mmol/L (0.5-2.2)
[2020-06-27] MEDS: ipratropium-albuterol 3 mL Neb INHALATION (09:25)
[2020-06-27] MEDS: budesonide 0.5 mg/2 mL Neb INHALATION (09:25)
--- NOTE | 2020-06-27 09:37 | PC.RESP ---
Per Dr. Araya, budesonide and duoneb given with mask treatment. Door closed, therapist stood as far away as possible during treatment and for 10 minutes after treatments. Treatment made no difference in patient condition there for physician says to hold off on further treatments. Patient is unable to take inhalers due to mental status.
--- NOTE | 2020-06-27 11:00 | P.PN_ITS ---
Subjective Subjective: Interval history: Patient admitted overnight. Hospital course, labs, vitals noted. On examination patient is obtunded but maintaining her airway and saturation on 2 L nasal cannula. She appears dehydrated. As per the nurse patient has had minimal urine output, no nausea or vomiting. On examination patient's blood pressure 86 systolic manually. Updated Ms. Barcenas who is patient's DPOA on file regarding her medical condition. We also discussed in detail regarding further goals of care. Ms. Barcenas states she is a distant niece to Ms. Giron and Ms. Moreno is sister is the actual DPOA but has severe Alzheimer's so she has been the acting DPOA for quite some time. She states as per the family wishes patient is DNR/DNI but want everything else to be tried including ICU admission, pressor support, NG tube placement if needed. Vitals/I&O/Wt Last Vital Signs Temp 97.8 F 06/27/20 08:00 Pulse 78 06/27/20 09:32 Resp 18 06/27/20 09:32 BP 84/60 06/27/20 08:00 Pulse Ox 97 06/27/20 09:32 06/26/20 06/27/20 06/27/20 22:59 06:59 14:59 Intake Total 1050 / 1050 Balance 1050 / 1050 Weight last 48 hrs Weight 36.287 kg Physical Exam Narrative: EXAM NARRATIVE: General: Obtunded, not responding to painful stimulus, maintaining airway. Dehydrated, frail thin HEENT: PERRLA, pupils bilaterally equal and reactive Chest: Bilateral bronchial breath sounds, expiratory rhonchi present more on the right side than left, more anteriorly than posteriorly CVS: S1-S2 regular, no murmurs, tachycardia, no gallops, no rubs Abdomen: Soft, nontender, no organomegaly, bowel sounds present Neuro: GCS: E1, M2, V2, maintaining airway Data : 06/27/20 05:18 06/27/20 05:18 Micro: Microbiology 06/26/20 15:05 Legionella Urinary Antigen - Final Unknown Source 06/26/20 15:45 Blood Culture - Preliminary Blood SPECIMEN COLLECTED 06/26/20 15:30 Blood Culture - Preliminary Blood SPECIMEN COLLECTED A&P Assessment and plan (1) Sepsis: Status: Acute (2) COVID-19: Status: Acute (3) Acute respiratory failure with hypoxia: Status: Acute (4) Altered mental status: Status: Acute Qualifiers: Altered mental status type: coma Coma depth: [place] coma 9-12 Coma timing: in the field (EMT or ambulance) Qualified Code(s): R40.2421 - [place] coma scale score 9-12, in the field [EMT or ambulance] (5) Acute hypernatremia: Status: Acute (6) Acute kidney injury: Status: Acute (7) Metabolic acidosis: Status: Acute (8) Lactic acidosis: Status: Acute (9) Elevated troponin: Consider cardiology consult ECHO in am cardiac tele Status: Acute Additional A&P Information 75-year-old female who is a intermediate resident with recent infection of COVID-19 around 2 weeks ago was brought to the ER last night with depressed mentation and found to be in severe sepsis. Cannot rule out superadded bacterial infection. Hypoxia secondary to pneumonia: Sepsis: Criteria met because of lactic acidosis, hypotension, tachycardia, leukocytosis. Start patient on Zosyn, continue vancomycin. Continue both antibiotics renally. Check urine culture, blood culture, lactate with reflex, procalcitonin, MRSA swab, flu swab, COVID-19 PCR, urine Legionella, bacterial antigen. Keep mean arterial pressure over 65 mmHg. Last echocardiogram from 2018 shows an EF of 65% with grade 1 diastolic dysfunction with mild to moderate concentric LVH, mild to moderate aortic insufficiency. We will give patient bolus 500 cc of half NS followed by 25% albumin. We will recheck blood pressure in 1 hour. If blood pressure not improving patient would most likely need inotropes. Check echocardiogram. Check proBNP. Stone catheter for strict input output charting. Repeat lactate in 12 hours. Check D-dimer. Will start patient on full dose Lovenox at 1 mg/kg body weight once daily which would be 40 mg subcu. Unfortunately CTA PE could not be done because of renal dysfunction. Rapid Covid antigen negative. Patient was COVID-19 positive in last 2 weeks. COVID-19 PCR has been sent. If patient's blood pressure does not improve will most likely move patient to viral ICU. Monitor viral markers including ferritin, fibrinogen, CRP, LDH. Start patient on dexamethasone 6 mg IV daily. Vitamin C, zinc. Advair, Spiriva once patient's mentation improves greater than inhalation treatment with DuoNeb's. Acute metabolic encephalopathy: Most likely combination of severe sepsis along with severe hypernatremia. Hypernatremia: Free water deficit of 1.8 L. Have placed NG tube. Chest x-ray to confirm the placement. Start patient on 250 cc free water flush every 4 hour. For now continue with D5 at 75 cc/h. Keep n.p.o. for now. Check BMP every 12 hourly for now. Hyperglycemia: Patient does not have any history of type 2 diabetes mellitus. Most likely secondary to D5. Patient requires D5 for now for severe hyponatremia oral free water flushes can be started. Start patient on insulin sliding scale at moderate dose every 4 hours as patient is n.p.o. ABG done earlier in the day negative for acidosis. High anion gap acidosis: Most likely a combination of lactic acidosis along with hyperglycemia. Management as above. Hypothyroidism: Patient takes levothyroxine 25 mcg at home. Check TSH. We will convert to IV if patient remains n.p.o. for next 48 hours. Check iron panel. NPO. Famotidine for PUD prophylaxis. Full dose Lovenox. Limited resuscitation to ICU admission and inotropes. Severely guarded prognosis. Attestations Medical Necessity Statement*: Patient requires further hospitalization for management of hypoxia secondary to pneumonia, severe sepsis, acute metabolic encephalopathy because severe sepsis and severe hypernatremia with recent COVID- 19 pneumonia. Time Spent in Patient Care: Greater than 35 minutes (>than 50% of time spent in counselling and/or direct pt care on unit) . 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
--- NOTE | 2020-06-27 11:21 | XRR_ITS ---
PROCEDURE INFORMATION: Exam: XR Chest, 1 View Exam date and time: 06/27/2020 12:16 PM Age: 75 years old Clinical indication: Device placement; Ng tube; Additional info: Ng tube placement TECHNIQUE: Imaging protocol: XR of the chest Views: 1 view. COMPARISON: CT chest abd pel wo con 06/26/2020 6:40 PM FINDINGS: Tubes, catheters and devices: Coiling and termination of feeding tube in a hiatal hernia. Lungs: Emphysematous change and interstitial prominence. No acute airspace disease. Pleural space: No pleural effusion. Heart/Mediastinum: No cardiomegaly. Vasculature: Calcification of the thoracic aorta. Bones/joints: Median sternotomy. Osteopenia and degenerative change. XR/XR chest 1V portable [id number] IMPRESSION: Coiling and termination of feeding tube in a hiatal hernia.
[2020-06-27 12:11] LABS: Glucose Point of Care 216 mg/dL (70-110)
[2020-06-27] MEDS: albumin 12.5 GM/50 ML VIAL IV (13:00)
[2020-06-27] MEDS: iron sucrose 200 MG in sodium chloride 0.9% (100 ml) 100 ML 220 MG IV (14:35)
[2020-06-27] MEDS: dexamethasone 4 mg/mL INJ 6 MG IVP (14:37)
[2020-06-27] MEDS: enoxaparin 40 mg/0.4 mL Syringe SUBCUT (14:39)
[2020-06-27] MEDS: sodium chloride 0.45% 1,000 ML 999 ML IV (14:40)
[2020-06-27 15:10] LABS: Glucose Point of Care 110 mg/dL (70-110)
--- NOTE | 2020-06-27 15:30 | PC.NURSE ---
Rivera catheter not charted on or placed before patient arrived to unit. This nurse did not insert pt's rivera catheter. Report received from nova Purvis RN. Rivera catheter charted on by this RN. Rivera care performed. Pt tolerated well and had no complications. Rivera draining and urine is dark [place]. Will continue to monitor.
--- NOTE | 2020-06-27 15:47 | XR_ITS ---
WS: [id number] Exam: XR abdomen 1V* [id number] Date/Time of Exam: 06/27/2020 3:47 PM Reason For Exam: NG tube placement Enteric tube appears to be looped in a prominent hiatal hernia in the lower chest. No bowel obstructi on or free air. Visualized organ margins are intact. Extensive vascular atherosclerotic disease noted in the abdomen and pelvis. Multiple old right and left pelvic fractures. XR/XR abdomen 1V* [id number] IMPRESSION: 1. Enteric tube looped in a large hiatal hernia in the lower chest region. 2. No acute abdominal process.
--- NOTE | 2020-06-27 15:47 | XR_ITS ---
WS: [id number] PORTABLE CHEST HISTORY: picc placement COMPARISON: 06/27/2020 and 06/26/2020 Peripheral line enters through the LEFT upper extremity with tip in the mid to distal SVC. Again note d is a nasogastric tube coiled within the hernia. The tip of the NG tube is in the superior portion o f the hernia. Lungs are clear and well expanded. No pleural effusion or pneumothorax. Cardiac size: Normal. Mediastinum/Aorta: Mild atherosclerosis aorta. Osteopenia. Rotoscoliosis lumbar and thoracic spines. XR/XR chest 1V portable [id number] IMPRESSION: 1. Peripheral line enters on the LEFT with tip in the distal SVC. 2. Nasogastric tube continues to be coiled within the large hiatal hernia.
--- NOTE | 2020-06-27 15:51 | P.PN_ITS ---
Subjective Subjective: Interval history: Assuming care of this patient this afternoon, case discussed earlier with Dr. Malik, remains obtunded other than intermittent moaning when repositioned. So far has had 3 loose bowel movements. IV iron running. Has NG tube in place. PICC line placement pending. Labs reviewed. Most recent blood pressure 84/38, tachycardic in the 110-120 range, afebrile and currently on 2 L nasal cannula. COVID-19 PCR pending. Remains NPO. Medications: Reviewed: Yes Medication Review Details: Active Medications Generic Name Dose Route Start Last Admin Trade Name Freq PRN Reason Stop Dose Admin Ascorbic Acid 500 mg 06/27/20 15:15 Vitamin C NG-TUBE DAILY CRISTOBAL Dexamethasone 6 mg 06/27/20 11:15 06/27/20 14:37 Decadron IVP 6 mg Q24H CRISTOBAL Administration Dextrose 25 ml 06/27/20 07:31 D50w IVP ONCE PRN hypoglycemia prot ocol Protocol Dextrose 50 ml 06/27/20 07:31 D50w IVP PRN PRN hypoglycemia prot ocol Protocol Enoxaparin Sodium 40 mg 06/27/20 12:00 06/27/20 14:39 Lovenox SUBCUT 40 mg Q24H CRISTOBAL Administration Famotidine 20 mg 06/27/20 01:00 06/27/20 14:37 Pepcid Inj IVP 20 mg Q12H CRISTOBAL Administration Glucagon 1 mg 06/27/20 07:31 Glucagen IM ONCE PRN Adult Acute Hypog lycemia Prot. Protocol Dextrose 1,000 mls @ 75 ml s/hr 06/27/20 01:00 06/27/20 01:30 D5w IV 75 mls/hr .[id number] CRISTOBAL Administration Vancomycin HCl 500 mg/ Sodium 100 mls @ 200 mls /hr 06/27/20 02:00 06/27/20 15:22 Chloride IV Infused Q48H CRISTOBAL Infusion Dextrose 500 mls @ 100 mls /hr 06/27/20 07:31 D5w IV ONCE PRN Adult Acute Hypog lycemia Prot Protocol Iron Sucrose 200 m g/ Sodium 110 mls @ 220 mls /hr 06/27/20 12:45 06/27/20 14:35 Chloride IV 07/01/20 13:14 220 mls/hr Q24H CRISTOBAL Administration Piperacillin Sod/T azobactam 50 mls @ 12.5 mls /hr 06/27/20 17:30 Sod 3.375 gm/ So dium Chloride IV Q12H CRISTOBAL Protocol Insulin Aspart 0 unit 06/27/20 07:45 06/27/20 15:17 Novolog SUBCUT Not Given Q4H CRISTOBAL Protocol Ondansetron HCl 4 mg 06/27/20 00:58 Zofran IVP Q8H PRN vomiting, or N/V if npo Zinc Gluconate 50 mg 06/27/20 15:15 Zinc Gluconate NG-TUBE DAILY CRISTOBAL procaine [From Novocain] Allergy (Verified 09/04/19 08:17) NA Vitals/I&O/Wt Last Vital Signs Temp 98.6 F 06/27/20 12:00 Pulse 118 H 06/27/20 12:00 Resp 36 H 06/27/20 12:00 BP 84/38 06/27/20 12:00 Pulse Ox 96 06/27/20 12:00 06/27/20 06/27/20 06/27/20 06:59 14:59 22:59 Intake Total 1150 / 1150 Balance 1150 / 1150 Weight last 48 hrs Weight 36.287 kg Physical Exam Const: GENERAL APPEARANCE: frail appearing and appears older than stated age NUTRITIONAL APPEARANCE: cachectic and underweight ORIENTATION/CONSCIOUSNESS: Yes patient obtunded HENMT: COMMON NORMALS: normocephalic and atraumatic HEAD & SCALP: normocephalic and atraumatic MOUTH: moist mucous membranes abnormal Details: parched TEETH & GINGIVA: Yes edentulous OTHER: -NGT in place Eye: COMMON NORMALS: Equal, round and reactive pupils present, EOMs intact bilaterally and conjunctivae normal CONJUNCTIVA: Yes conjunctivae normal PUPIL: Yes Equal, round and reactive pupils present Neck/C-Spine: COMMON NORMALS: full ROM GENERAL: Yes normal visual inspection and Yes trachea midline Resp: COMMON NORMALS: normal respiratory effort, No retractions and No use of accessory muscles EFFORT & INSPECTION: Yes symmetric chest movement and Yes tachypneic OTHER: -on 2 L NC, upper airway gurgling Cardio: COMMON NORMALS: regular rhythm, S1 normal heart sound present, S2 normal heart sound present and No murmurs present (Cardio) RATE: tachycardic RHYTHM: regular rhythm HEART SOUNDS: S1 normal heart sound present and S2 normal heart sound present OTHER: -hypotensive GI: COMMON NORMALS: Normal to inspection, nondistended, normoactive bowel sounds present and Soft to palpation INSPECTION: Yes scaphoid PALPATION: Yes Soft to palpation : BLADDER/KIDNEY EXAM: Yes catheter in place Catheter type (Female): urethral Extremity: COMMON NORMALS: normal to inspection, no clubbing, cyanosis or edema and no pedal edema Neuro: SENSORIUM/ORIENTATION: Yes obtunded Psych: OTHER: -obtunded Skin: COMMON NORMALS: no jaundice, no petechiae and no mottling NARRATIVE SKIN EXAM: -sacral excoriation Data : 06/27/20 05:18 06/27/20 05:18 Micro: Microbiology 06/26/20 15:30 Blood Culture - Preliminary Blood NEGATIVE TO DATE 06/26/20 15:05 Bacterial Antigens - Final Urine Kidney 06/26/20 15:05 Legionella Urinary Antigen - Final Unknown Source 06/26/20 15:45 Blood Culture - Preliminary Blood SPECIMEN COLLECTED A&P Assessment and plan (1) Sepsis: -Sepsis as evidenced by significant leukocytosis, hypotension, tachycardia, hypoxia, lactic acidosis, with evidence of end-organ injury (DENISE, acute encephalopathy) -Currently obtunded -Continue broad-spectrum IV antibiotics, currently on Zosyn and vancomycin -Known COVID-19 infection approximately 2 weeks ago now with acute decompensation. Rapid testing negative, PCR pending -Isolation precautions -CT chest with noted groundglass interstitial lung disease currently involving the right upper and right lower lobes Status: Acute Qualifiers: Acute respiratory failure type: with hypoxia Sepsis acute organ dysfunction status: with acute organ dysfunction Sepsis type: sepsis due to unspecified organism Severe sepsis acute organ dysfunction type: acute respiratory failure Severe sepsis shock status: with septic shock Qualified Code(s): A41.9 - Sepsis, unspecified organism; R65.21 - Severe sepsis with septic shock; J96.01 - Acute respiratory failure with hypoxia (2) Altered mental status: -Likely multifactorial given septic shock, fecal impaction, likely COVID- 19 infection -obtunded currently -unable to place NGT appropriately due to hiatal hernia -check ammonia; TSH wnl -has underlying dementia; alert and oriented x 2 at baseline Status: Acute Qualifiers: Altered mental status type: coma Coma depth: [place] coma 9-12 Coma timing: in the field (EMT or ambulance) Qualified Code(s): R40.2421 - [place] coma scale score 9-12, in the field [EMT or ambulance] (3) Acute respiratory failure with hypoxia: -currently on RA -evidence of interstitial disease on CT -continue to monitor resiratory status -rapid COVID test negative, PCR pending -supplemental oxygen as needed -on broad spectrum IV antibiotics; noted significant leukocytosis, pro- calcitonin elevation, lactic acidosis -f/u blood cx Status: Acute (4) Metabolic acidosis: Status: Acute (5) COVID-19: -Known COVID-19 infection approximately 2 weeks ago now with acute decompensation. Rapid testing negative, PCR pending -Isolation precautions -CT chest with noted groundglass interstitial lung disease currently involving the right upper and right lower lobes -on dexamethasone, pulmonary toilet, unable to do breathing treatments because of mental status -no PO meds as unable to place NGT successfully despite multiple attempts -screen for influenza, MRSA, bacterial antigens, Legionella Status: Acute (6) Lactic acidosis: -likely secondary to infection Status: Acute (7) Acute hypernatremia: -on D5W, free water deficit-1.7 L -trend Na to avoid overcorrection Status: Acute (8) Acute kidney injury: -secondary to dehydration -continue to monitor renal function -avoid nephrotoxins, renally dose meds -ACEi on hold Status: Acute (9) Elevated troponin: -noted elevated troponins in setting of acute renal impairment -telemetry monitoring -monitor vital signs -Echo: EF=77%, moderate to severe LVH, G1DD Status: Acute Additional A&P Information -elevated D-dimer in setting of renal impairment, COVID-19 infection -hemoconcentration likely secondary to dehydration; trend CBC. Baseline Hg is around 10 -hx of obstructive pyelonephritis secondary to L proximal ureteral stone s/p L ureteral stent placement (08/2019) -Hypothyroidism; PO meds on hold -fecal impaction; multiple episodes of loose stool, rectal tube in place; bowel regimen -at least moderate protein calorie malnutrition; BMI-16 kg/m2; NPO currently due to mental status -Chronic constipation -HTN; hypotensive currently; received dose of albumin, NS bolus with improved BP -Chronic back pain -hx of AAA -Transaminitis; trend LFTs -GI ppx with famotidine -DVT ppx with lovenox -Dispo: return to [facility] -Code status: DNR/DNI; ok with ICU admission, pressor support, nutrition. DPOA is currently patient's niece Jacki Barcenas -[facility], Guarded prognosis Attestations Medical Necessity Statement*: Patient requires hospitalization for continued management of septic shock, hypernatremia, acute kidney injury, acute encephalopathy, currently obtunded. Time Spent in Patient Care: Greater than 35 minutes (>than 50% of time spent in counselling and/or direct pt care on unit) . Coding Level of Care Code Acute Nutrition Therapist for Chg Fwd Exam Comprehensive Diagnoses Sepsis A41.9; R65.21; J96.01 Acute respiratory failure type: with hypoxia Sepsis acute organ dysfunction status: with acute organ dysfunction Sepsis type: sepsis due to unspecified organism Severe sepsis acute organ dysfunction type: acute respiratory failure Severe sepsis shock status: with septic shock Altered mental status R40.2421 Altered mental status type: coma Coma depth: [place] coma 9-12 Coma timing: in the field (EMT or ambulance) Acute respiratory failure with hypoxia J96.01 Metabolic acidosis E87.2 COVID-19 U07.1 Lactic acidosis E87.2 Acute hypernatremia E87.0 Acute kidney injury N17.9 Elevated troponin R77.8
--- NOTE | 2020-06-27 16:30 | PC.NURSE ---
NGT per CXR was coiled in pt's hiatal hernia. , Berta Polanco, and Laxmi Freedman at bedside. NGT removed and attempted to replace 3 times unsuccessfully. stated to stop attempting to place NGT. Orders will be placed via IV to meet patient's needs. Pt tolerated NGT insertion well but not following commands at this time.. No complications. Will continue to monitor the pt.
[2020-06-27] MEDS: piperacillin-tazobactam 3.375 GM in sodium chloride 0.9% (plus) 50 ML IV (17:04)
[2020-06-27] MEDS: potassium chloride premix 100 ML 25 MEQ IV (17:05)
[2020-06-27 17:52] LABS: Lactate (Lactic Acid level) 1.6 mmol/L (0.5-2.2)
[2020-06-27 18:56] LABS: Anion Gap 15.2 (5-19); Blood Urea Nitrogen 79 mg/dL (8-23); Carbon Dioxide 19 mmol/L (22-29); Chloride 118 mmol/L (98-107); Glucose 114 mg/dL (65-115); Osmolality Calculated 333 mOsm/kg (285-295); Potassium 3.2 mmol/L (3.5-5.1); Sodium 149 mmol/L (136-145)
[2020-06-27 19:10] LABS: Influenza A by IFA Negative (Negative); Influenza B by IFA Negative (Negative)
[2020-06-27 20:21] LABS: Glucose Point of Care 118 mg/dL (70-110)
[2020-06-27 23:19] LABS: Glucose Point of Care 144 mg/dL (70-110)
[2020-06-28] VITALS (45 sets, daily range): BP systolic 92–163; BP diastolic 62–112; PULSE 99–108; RESP 16–38; TEMP 36.3–37.2; O2SAT 92–97
[2020-06-28] MEDS: famotidine 20 mg/2 mL INJ IVP ×2 (01:56→12:01)
--- NOTE | 2020-06-28 02:55 | PC.NURSE ---
A & O Patient not alert and oriented. Very somnolent and moans. Patient will open eyes to pain with turning and sometimes to voice, but not always. Patient has been resting quietly most of shift except for repositioning.
[2020-06-28 03:01] LABS: Glucose Point of Care 123 mg/dL (70-110)
[2020-06-28 04:30] LABS: Basophils # 0.1 10^3/uL (0.0-0.1); Basophils % 0.5 %; Hematocrit 40.7 % (37.0-47.0); Lymphocytes # 1.7 10^3/uL (0.8-4.8); Lymphocytes % 7.4 %; Mean Corpuscular HGB Conc 31.9 g/dL (30.0-36.0); Mean Corpuscular Hemoglobin 29.2 pg (28.0-34.0); Mean Corpuscular Volume 91.5 fL (81-99); Monocytes # 1.3 10^3/uL (0.2-0.9); Monocytes % 5.6 %; Neutrophils # 18.84 10^3/uL (1.8-7.7); Neutrophils % 83.8 %; Nucleated Red Blood Cells % 0 %; Platelet Count 153 10^3/cmm (130-400); Red Blood Count 4.45 10^6/uL (4.1-5.3); White Blood Count 22.5 10^3/uL (4.0-10.0)
[2020-06-28 04:46] LABS: Lactic Sepsis W/Reflex 1.4 mmol/L (0.5-2.2)
[2020-06-28 04:47] LABS: Alanine Aminotransferase 73 U/L (0-33); Alkaline Phosphatase 109 IU/L (35-105); Anion Gap 14.5 (5-19); Aspartate Amino Transferase 31 U/L (0-32); Blood Urea Nitrogen 64 mg/dL (8-23); Carbon Dioxide 19 mmol/L (22-29); Chloride 117 mmol/L (98-107); Globulin 2.7 g/dL (1.3-4.6); Glucose 122 mg/dL (65-115); Magnesium 2.2 mg/dL (1.7-2.3); Osmolality Calculated 324 mOsm/kg (285-295); Potassium 3.5 mmol/L (3.5-5.1); Sodium 147 mmol/L (136-145); Total Bilirubin 0.5 mg/dL (0.15-1.2); Total Protein 5.7 g/dL (6.6-8.7)
--- NOTE | 2020-06-28 04:51 | PC.NURSE ---
NG TUBE Order for NG tube was in. Before Dr. Polanco left last night, gave order not to attempt insertion again.
[2020-06-28] MEDS: piperacillin-tazobactam 3.375 GM in sodium chloride 0.9% (plus) 50 ML IV ×2 (05:38→16:54)
--- NOTE | 2020-06-28 06:00 | XRR_ITS ---
PROCEDURE INFORMATION: Exam: XR Chest, 1 View Exam date and time: 06/28/2020 6:39 AM Age: 75 years old Clinical indication: Shortness of breath; Additional info: Covid TECHNIQUE: Imaging protocol: XR of the chest Views: 1 view. COMPARISON: CR XR chest 1V portable [id number] 06/27/2020 3:53 PM FINDINGS: Tubes, catheters and devices: Left PICC line again demonstrated with interval removal of feeding tube. Lungs: Emphysematous change, interstitial prominence, and chronic granulomatous disease. Pleural space: No significant pleural effusion. Heart/Mediastinum: Hiatal hernia. No cardiomegaly. Bones/joints: Median sternotomy. Osteopenia and degenerative change. XR/XR chest 1V portable [id number] IMPRESSION: Emphysematous change, interstitial prominence, and chronic granulomatous disease.
[2020-06-28] MEDS: dextrose 5% 1,000 ML 75 ML IV (06:23)
[2020-06-28 06:29] LABS: Fibrinogen 602 mg/dL (174-498)
[2020-06-28 06:39] LABS: Glucose Point of Care 118 mg/dL (70-110)
--- NOTE | 2020-06-28 06:56 | PC.NURSE ---
RECTAL TUBE Patient had significant rectal tube leakage. Balloon deflated, had 50 mL in balloon. 40 mL now in tube and very little leakage around tube at this time. Tube was also irrigated with 60 mL of water and patient had 220 mL of stool output.
[2020-06-28 08:21] LABS: C Reactive Protein 223.9 mg/L (0.0-4.9); Creatine Phosphokinase 127 U/L (26-192)
[2020-06-28 08:49] LABS: Ferritin 2082 ng/mL (15-150)
[2020-06-28] MEDS: lanolin oint 7 gm 1 APPLIC TOPICAL ×3 (09:27→18:24)
--- NOTE | 2020-06-28 10:04 | P.PN_ITS ---
Subjective Subjective: Interval history: Hemodynamically stable, afebrile, mildly tachycardic throughout the night. Rectal tube required repositioning, had a total output of 220 mL of stool, 275 mL of urine output. Continued leukocytosis, normalization in hemoglobin, improved renal function, LFTs, hypernatremia. Remains obtunded and NPO. COVID-19 PCR pending. Has remained on room air since yesterday. Has been seen several times throughout the day, remains obtunded except for some intermittent moaning particularly when repositioned. Medications: Reviewed: Yes Medication Review Details: Active Medications Generic Name Dose Route Start Last Admin Trade Name Freq PRN Reason Stop Dose Admin Ascorbic Acid 500 mg 06/27/20 15:15 06/28/20 08:33 Vitamin C NG-TUBE Not Given DAILY CRISTOBAL Dexamethasone 6 mg 06/27/20 11:15 06/27/20 14:37 Decadron IVP 6 mg Q24H CRISTOBAL Administration Dextrose 25 ml 06/27/20 07:31 D50w IVP ONCE PRN hypoglycemia prot ocol Protocol Dextrose 50 ml 06/27/20 07:31 D50w IVP PRN PRN hypoglycemia prot ocol Protocol Enoxaparin Sodium 40 mg 06/27/20 12:00 06/27/20 14:39 Lovenox SUBCUT 40 mg Q24H CRISTOBAL Administration Famotidine 20 mg 06/27/20 01:00 06/28/20 01:56 Pepcid Inj IVP 20 mg Q12H CRISTOBAL Administration Glucagon 1 mg 06/27/20 07:31 Glucagen IM ONCE PRN Adult Acute Hypog lycemia Prot. Protocol Dextrose 1,000 mls @ 75 ml s/hr 06/27/20 01:00 06/28/20 06:23 D5w IV 75 mls/hr .[id number] CRISTOBAL Administration Vancomycin HCl 500 mg/ Sodium 100 mls @ 200 mls /hr 06/27/20 02:00 06/27/20 15:22 Chloride IV Infused Q48H CRISTOBAL Infusion Dextrose 500 mls @ 100 mls /hr 06/27/20 07:31 D5w IV ONCE PRN Adult Acute Hypog lycemia Prot Protocol Iron Sucrose 200 m g/ Sodium 110 mls @ 220 mls /hr 06/27/20 12:45 06/27/20 17:05 Chloride IV 07/01/20 13:14 Infused Q24H CRISTOBAL Infusion Piperacillin Sod/T azobactam 50 mls @ 12.5 mls /hr 06/27/20 17:30 06/28/20 05:38 Sod 3.375 gm/ So dium Chloride IV 12.5 mls/hr Q12H CRISTOBAL Administration Protocol Insulin Aspart 0 unit 06/27/20 07:45 06/28/20 07:24 Novolog SUBCUT Not Given Q4H [facility] Protocol Lanolin 1 applic 06/27/20 18:03 06/28/20 09:27 Lanolin Oint TOPICAL 1 applic PRN PRN Administration DRYNESS Ondansetron HCl 4 mg 06/27/20 00:58 Zofran IVP Q8H PRN vomiting, or N/V if npo Zinc Gluconate 50 mg 06/27/20 15:15 06/28/20 08:33 Zinc Gluconate NG-TUBE Not Given DAILY [facility] procaine [From Novocain] Allergy (Verified 09/04/19 08:17) NA Vitals/I&O/Wt Last Vital Signs Temp 97.4 F L 06/28/20 04:00 Pulse 100 06/28/20 08:10 Resp 19 H 06/28/20 06:30 BP 129/91 06/28/20 06:30 Pulse Ox 94 06/28/20 08:10 06/27/20 06/28/20 06/28/20 22:59 06:59 14:59 Intake Total 2310 / 3310 991.25 / 4301.25 100 / 100 Output Total 175 / 175 495 / 670 Balance 2135 / 3135 496.25 / 3631.25 100 / 100 Weight last 48 hrs Weight 54.068 kg Weight 36.287 kg Physical Exam Const: COMMON NORMALS: no acute distress GENERAL APPEARANCE: frail appearing and appears older than stated age NUTRITIONAL APPEARANCE: cachectic and underweight ORIENTATION/CONSCIOUSNESS: Yes patient obtunded HENMT: COMMON NORMALS: normocephalic and atraumatic HEAD & SCALP: normocephalic and atraumatic MOUTH: moist mucous membranes abnormal Details: parched TEETH & GINGIVA: Yes edentulous Eye: COMMON NORMALS: Equal, round and reactive pupils present, EOMs intact bilaterally and conjunctivae normal CONJUNCTIVA: Yes conjunctivae normal PUPIL: Yes Equal, round and reactive pupils present Neck/C-Spine: COMMON NORMALS: full ROM GENERAL: Yes normal visual inspection and Yes trachea midline Resp: COMMON NORMALS: normal respiratory effort, No retractions and No use of accessory muscles EFFORT & INSPECTION: Yes symmetric chest movement and Yes tachypneic OTHER: -on RA, upper airway gurgling Cardio: COMMON NORMALS: regular rhythm, S1 normal heart sound present, S2 normal heart sound present and No murmurs present (Cardio) RATE: tachycardic RHYTHM: regular rhythm HEART SOUNDS: S1 normal heart sound present and S2 normal heart sound present OTHER: -intermittently hypertensive GI: COMMON NORMALS: Normal to inspection, nondistended, normoactive bowel sounds present and Soft to palpation INSPECTION: Yes scaphoid PALPATION: Yes Soft to palpation OTHER: -rectal tube in place : BLADDER/KIDNEY EXAM: Yes catheter in place Catheter type (Female): urethral Extremity: COMMON NORMALS: normal to inspection, no clubbing, cyanosis or edema and no pedal edema Neuro: SENSORIUM/ORIENTATION: Yes obtunded Psych: OTHER: -obtunded Skin: COMMON NORMALS: no jaundice, no petechiae and no mottling NARRATIVE SKIN EXAM: -sacral excoriation Urinary Catheter Management^: Stone: Cath Placed During This Visit: yes Reason for Continuing Indwelling Catheter: Accurate Measurement of Urinary Output in Critically Ill Patients Urinary Catheter Date of Insertion: 06/27/20 Data : 06/28/20 04:10 06/28/20 14:02 Micro: Microbiology 06/26/20 15:45 Blood Culture - Preliminary Blood NEGATIVE TO DATE 06/26/20 15:30 Blood Culture - Preliminary Blood NEGATIVE TO DATE 06/26/20 15:05 Bacterial Antigens - Final Urine Kidney 06/26/20 15:05 Legionella Urinary Antigen - Final Unknown Source A&P Assessment and plan (1) Sepsis: -Sepsis as evidenced by significant leukocytosis, hypotension, tachycardia, hypoxia, lactic acidosis, with evidence of end-organ injury (DENISE, acute encephalopathy) -Currently obtunded -Continue broad-spectrum IV antibiotics, currently on Zosyn and vancomycin -Known COVID-19 infection approximately 2 weeks ago now with acute decompensation. Rapid testing negative, PCR pending -Isolation precautions -CT chest with noted groundglass interstitial lung disease currently involving the right upper and right lower lobes Status: Acute Qualifiers: Acute respiratory failure type: with hypoxia Sepsis acute organ dysfunction status: with acute organ dysfunction Sepsis type: sepsis due to unspecified organism Severe sepsis acute organ dysfunction type: acute respiratory failure Severe sepsis shock status: with septic shock Qualified Code(s): A41.9 - Sepsis, unspecified organism; R65.21 - Severe sepsis with septic shock; J96.01 - Acute respiratory failure with hypoxia (2) Altered mental status: -Likely multifactorial given septic shock, fecal impaction, likely COVID- 19 infection, hypernatremia -obtunded currently -unable to place NGT appropriately due to hiatal hernia -check ammonia; TSH wnl -has underlying dementia; alert and oriented x 2 at baseline -give enema -hypernatremia resolved Status: Acute Qualifiers: Altered mental status type: coma Coma depth: [place] coma 9-12 Coma timing: in the field (EMT or ambulance) Qualified Code(s): R40.2421 - [place] coma scale score 9-12, in the field [EMT or ambulance] (3) Acute respiratory failure with hypoxia: -currently on RA -evidence of interstitial disease on CT -continue to monitor resiratory status -rapid COVID test negative, PCR pending -supplemental oxygen as needed -on broad spectrum IV antibiotics; noted significant leukocytosis, pro- calcitonin elevation, lactic acidosis; lactic acidosis has resolved -blood cx: prelim negative Status: Acute (4) Metabolic acidosis: -AG closed, improving metabolic acidosis Status: Acute (5) COVID-19: -Known COVID-19 infection approximately 2 weeks ago now with acute decompensation. Rapid testing negative, PCR pending -Isolation precautions -CT chest with noted groundglass interstitial lung disease currently involving the right upper and right lower lobes -on dexamethasone, pulmonary toilet, unable to do breathing treatments because of mental status -no PO meds as unable to place NGT successfully despite multiple attempts -negative influenza, MRSA, bacterial antigens, Legionella Status: Acute (6) Lactic acidosis: -likely secondary to infection Status: Acute (7) Acute hypernatremia: -on D5W, free water deficit-0.8 L -improving, continue to trend Na to avoid overcorrection. Now normalized. Status: Resolved (8) Acute kidney injury: -secondary to dehydration -continue to monitor renal function -avoid nephrotoxins, renally dose meds -ACEi on hold Status: Acute (9) Elevated troponin: -noted elevated troponins in setting of acute renal impairment -telemetry monitoring -continue to monitor vital signs -Echo: EF=77%, moderate to severe LVH, G1DD Status: Acute Additional A&P Information -elevated D-dimer in setting of renal impairment, COVID-19 infection -hemoconcentration likely secondary to dehydration; trend CBC. Baseline Hg is around 10 -hx of obstructive pyelonephritis secondary to L proximal ureteral stone s/p L ureteral stent placement (08/2019) -Hypothyroidism; PO meds on hold -fecal impaction; multiple episodes of loose stool, rectal tube in place; bowel regimen -at least moderate protein calorie malnutrition; BMI-16 kg/m2; NPO currently due to mental status -Chronic constipation -HTN; hypotensive currently; received dose of albumin, NS bolus with improved BP -Chronic back pain -hx of AAA -Transaminitis; trend LFTs, improving -GI ppx with famotidine -DVT ppx with lovenox -Dispo: return to [facility] -Code status: DNR/DNI; ok with ICU admission, pressor support, nutrition. DPOA is currently patient's cousin Jacki Barcenas. Called and updated Jacki -Guarded prognosis Attestations Medical Necessity Statement*: Patient requires hospitalization for continued management of acute encephalopathy, hypernatremia, sepsis, fecal impaction. Time Spent in Patient Care: 16 - 35 minutes (>than 50% of time spent in counselling and/or direct pt care on unit) . Coding Level of Care Code Acute Cardiac Technologist for g Fwd Exam Comprehensive Diagnoses Sepsis A41.9; R65.21; J96.01 Acute respiratory failure type: with hypoxia Sepsis acute organ dysfunction status: with acute organ dysfunction Sepsis type: sepsis due to unspecified organism Severe sepsis acute organ dysfunction type: acute respiratory failure Severe sepsis shock status: with septic shock Altered mental status R40.2421 Altered mental status type: coma Coma depth: [place] coma 9-12 Coma timing: in the field (EMT or ambulance) Acute respiratory failure with hypoxia J96.01 Metabolic acidosis E87.2 COVID-19 U07.1 Lactic acidosis E87.2 Acute hypernatremia E87.0 Acute kidney injury N17.9 Elevated troponin R77.8
[2020-06-28 11:42] LABS: Glucose Point of Care 136 mg/dL (70-110)
[2020-06-28] MEDS: iron sucrose 200 MG in sodium chloride 0.9% (100 ml) 100 ML 220 MG IV (11:57)
[2020-06-28] MEDS: enoxaparin 40 mg/0.4 mL Syringe SUBCUT (11:59)
[2020-06-28] MEDS: dexamethasone 4 mg/mL INJ 6 MG IVP (11:59)
[2020-06-28 14:51] LABS: Blood Urea Nitrogen 59 mg/dL (8-23); Calcium 8.8 mg/dL (8.5-10.5); Carbon Dioxide 19 mmol/L (22-29); Chloride 112 mmol/L (98-107); Glucose 160 mg/dL (65-115); Osmolality Calculated 314 mOsm/kg (285-295); Sodium 142 mmol/L (136-145)
[2020-06-28 15:02] LABS: Anion Gap 14.6 (5-19); Potassium 3.6 mmol/L (3.5-5.1)
[2020-06-28 16:35] LABS: Glucose Point of Care 168 mg/dL (70-110)
[2020-06-28] MEDS: dextrose 5%-sod chloride 0.45% 1,000 ML 50 ML IV (17:06)
[2020-06-28 18:26] LABS: Coronavirus Lab Test PTC Positive
[2020-06-28 20:19] LABS: Glucose Point of Care 116 mg/dL (70-110)
[2020-06-28 23:37] LABS: Glucose Point of Care 101 mg/dL (70-110)
--- NOTE | 2020-06-28 23:53 | PC.NURSE ---
RECTAL TUBE IRRIGATION Patients rectal tube irrigated with 60 mL water. Fecal matter appeared chunky and is draining well after irrigation. There was some leakage around tube. Vernell care done and patients chucks changed.
[2020-06-29] VITALS (26 sets, daily range): BP systolic 85–182; BP diastolic 54–112; PULSE 83–108; RESP 8–34; TEMP 36.4–37.3; O2SAT 94–98
[2020-06-29] MEDS: vancomycin 500 MG in sodium chloride 0.9% (plus) 100 ML 200 MG IV (01:20)
[2020-06-29] MEDS: lanolin oint 7 gm 1 APPLIC TOPICAL (01:22)
[2020-06-29] MEDS: famotidine 20 mg/2 mL INJ IVP ×2 (01:58→12:24)
[2020-06-29 03:20] LABS: Glucose Point of Care 114 mg/dL (70-110)
[2020-06-29 04:27] LABS: Ammonia 24 umol/L (11-51)
[2020-06-29 04:28] LABS: C Reactive Protein 63.7 mg/L (0.0-4.9)
[2020-06-29 04:32] LABS: Anion Gap 14.1 (5-19); Blood Urea Nitrogen 51 mg/dL (8-23); Calcium 8.6 mg/dL (8.5-10.5); Carbon Dioxide 19 mmol/L (22-29); Chloride 114 mmol/L (98-107); Glucose 119 mg/dL (65-115); Osmolality Calculated 313 mOsm/kg (285-295); Potassium 3.1 mmol/L (3.5-5.1); Sodium 144 mmol/L (136-145)
[2020-06-29 04:37] LABS: Fibrinogen 537 mg/dL (174-498)
[2020-06-29 04:44] LABS: D Dimer 3.31 ug/mIFEU (0-0.59)
[2020-06-29 04:50] LABS: Ferritin 1582 ng/mL (15-150)
[2020-06-29 04:51] LABS: Creatine Phosphokinase 459 U/L (26-192)
[2020-06-29] MEDS: piperacillin-tazobactam 3.375 GM in sodium chloride 0.9% (plus) 50 ML IV ×2 (06:06→17:53)
[2020-06-29] MEDS: potassium chloride premix 100 ML 50 MEQ IV (06:24)
--- NOTE | 2020-06-29 06:47 | PC.NURSE ---
ACTIVITY Patient tolerated activity well this shift and had minimal moaning. Patient appeared to be resting comfortably this shift.
--- NOTE | 2020-06-29 06:48 | PC.NURSE ---
SHIFT SUMMARY Patient had uneventful shift. Patient had 375 mL out of rectal tube and 325 mL of urine output. Patient had no issues with vital signs this shift. K-rider hung per Dr. Hong due to potassium of 3.1.
[2020-06-29 07:40] LABS: Glucose Point of Care 115 mg/dL (70-110)
--- NOTE | 2020-06-29 10:02 | PC.SOCIAL ---
Pg 2 IMM Explained to pt's family member Jacki, via phone, Pg 2 IMM. No questions voiced. Signed, dated, & timed a copy for chart.
--- NOTE | 2020-06-29 11:52 | P.PN_ITS ---
Subjective Subjective: Interval history: Seems more alert this AM, otherwise not much change. Had 325 mL urine and 375 mL stool output overnight, no solid BMs. COVID- 19 PCR +, inflammatory markers improving, increased CPK, stable renal function. Medications: Reviewed: Yes Medication Review Details: Active Medications Generic Name Dose Route Start Last Admin Trade Name Freq PRN Reason Stop Dose Admin Ascorbic Acid 500 mg 06/27/20 15:15 06/29/20 09:23 Vitamin C NG-TUBE Not Given DAILY CRISTOBAL Dexamethasone 6 mg 06/27/20 11:15 06/28/20 11:59 Decadron IVP 6 mg Q24H CRISTOBAL Administration Dextrose 25 ml 06/27/20 07:31 D50w IVP ONCE PRN hypoglycemia prot ocol Protocol Dextrose 50 ml 06/27/20 07:31 D50w IVP PRN PRN hypoglycemia prot ocol Protocol Enoxaparin Sodium 40 mg 06/27/20 12:00 06/28/20 11:59 Lovenox SUBCUT 40 mg Q24H CRISTOBAL Administration Famotidine 20 mg 06/27/20 01:00 06/29/20 01:58 CD T Pepcid Inj IVP 20 mg Q12H CRISTOBAL Administration Glucagon 1 mg 06/27/20 07:31 Glucagen IM ONCE PRN Adult Acute Hypog lycemia Prot. Protocol Vancomycin HCl 500 mg/ Sodium 100 mls @ 200 mls /hr 06/27/20 02:00 06/29/20 01:50 CS T Chloride IV Infused Q48H CRISTOBAL Infusion Dextrose 500 mls @ 100 mls /hr 06/27/20 07:31 D5w IV ONCE PRN Adult Acute Hypog lycemia Prot Protocol Iron Sucrose 200 m g/ Sodium 110 mls @ 220 mls /hr 06/27/20 12:45 06/28/20 14:35 Chloride IV 07/01/20 13:14 Infused Q24H CRISTOBAL Infusion Piperacillin Sod/T azobactam 50 mls @ 12.5 mls /hr 06/27/20 17:30 06/29/20 06:06 Sod 3.375 gm/ So dium Chloride IV 12.5 mls/hr Q12H CRISTOBAL Administration Protocol Dextrose/Sodium Ch loride 1,000 mls @ 50 ml s/hr 06/28/20 17:00 06/28/20 17:06 Dextrose 5%-Sod Chloride 0.45% IV 50 mls/hr .Q20H CRISTOBAL Administration Insulin Aspart 0 unit 06/27/20 07:45 06/29/20 11:56 Novolog SUBCUT Not Given Q4H CRISTOBAL Protocol Lanolin 1 applic 06/27/20 18:03 06/29/20 01:22 CS T Lanolin Oint TOPICAL 1 applic PRN PRN Administration DRYNESS Ondansetron HCl 4 mg 06/27/20 00:58 Zofran IVP Q8H PRN vomiting, or N/V if npo Zinc Gluconate 50 mg 06/27/20 15:15 06/29/20 09:23 Zinc Gluconate NG-TUBE Not Given DAILY CRISTOBAL procaine [From Novocain] Allergy (Verified 09/04/19 08:17) NA Vitals/I&O/Wt Last Vital Signs Temp 97.6 F 06/29/20 09:00 Pulse 90 06/29/20 10:00 Resp 11 L 06/29/20 10:00 BP 130/82 06/29/20 10:00 Pulse Ox 96 06/29/20 10:00 06/28/20 06/29/20 06/29/20 23:59 06:59 14:59 Intake Total Output Total Balance Weight last 48 hrs Weight 51.936 kg Weight 54.068 kg Physical Exam Const: COMMON NORMALS: no acute distress and alert (but non-verbal ) GENERAL APPEARANCE: frail appearing and appears older than stated age NUTRITIONAL APPEARANCE: thin ORIENTATION/CONSCIOUSNESS: Yes patient obtunded HENMT: COMMON NORMALS: normocephalic and atraumatic HEAD & SCALP: normocephalic and atraumatic MOUTH: moist mucous membranes abnormal Details: parched TEETH & GINGIVA: Yes edentulous Eye: COMMON NORMALS: Equal, round and reactive pupils present, EOMs intact bilaterally and conjunctivae normal CONJUNCTIVA: Yes conjunctivae normal PUPIL: Yes Equal, round and reactive pupils present Neck/C-Spine: COMMON NORMALS: full ROM GENERAL: Yes normal visual inspection and Yes trachea midline Resp: COMMON NORMALS: normal respiratory effort, No retractions and No use of accessory muscles EFFORT & INSPECTION: Yes symmetric chest movement and Yes tachypneic OTHER: -on RA Cardio: COMMON NORMALS: regular rhythm, S1 normal heart sound present, S2 normal heart sound present and No murmurs present (Cardio) RATE: tachycardic RHYTHM: regular rhythm HEART SOUNDS: S1 normal heart sound present and S2 normal heart sound present OTHER: -intermittently hypertensive GI: COMMON NORMALS: Normal to inspection, nondistended, normoactive bowel sounds present and Soft to palpation INSPECTION: Yes scaphoid PALPATION: Y es Soft to palpation OTHER: -rectal tube in place : BLADDER/KIDNEY EXAM: Yes catheter in place Catheter type (Female): urethral Extremity: COMMON NORMALS: normal to inspection, no clubbing, cyanosis or edema and no pedal edema Neuro: SENSORIUM/ORIENTATION: Yes alert (but non-verbal ) Psych: OTHER: -moans when repositioned, otherwise non-verbal Skin: COMMON NORMALS: no jaundice, no petechiae and no mottling NARRATIVE SKIN EXAM: -sacral excoriation Urinary Catheter Management^: Stone: Cath Placed During This Visit: yes Reason for Continuing Indwelling Catheter: Acute Urinary Retention or Obstruction Urinary Catheter Date of Insertion: 06/27/20 Data : 06/28/20 04:10 06/29/20 03:40 Micro: Microbiology 06/27/20 16:38 MRSA Culture - Final Nose A&P Assessment and plan (1) Sepsis: -Sepsis as evidenced by significant leukocytosis, hypotension, tachyca rdia, hypoxia, lactic acidosis, with evidence of end-organ injury (DENISE, acute encephalopathy) -more alert today, otherwise non-verbal -Continue broad-spectrum IV antibiotics, on Zosyn and vancomycin -Known COVID-19 infection approximately 2 weeks ago now with acute decompensation. Rapid testing negative, PCR positive -Isolation precautions -CT chest with noted ground-glass interstitial lung disease currently involving the right upper and right lower lobes Status: Acute Qualifiers: Sepsis type: sepsis due to unspecified organism Sepsis acute organ dysfunction status: with acute organ dysfunction Severe sepsis acute organ dysfunction type: acute respiratory failure Acute respiratory failure type: with hypoxia Severe sepsis shock status: with septic shock Qualified Code(s): A41.9 - Sepsis, unspecified organism; R65.21 - Severe sepsis with septic shock; J96.01 - Acute respiratory failure with hypoxia (2) Altered mental status: -Likely multifactorial given septic shock, fecal impaction, likely COVID- 19 infection, hypernatremia -more alert, otherwise non-verbal -unable to place NGT appropriately due to hiatal hernia -ammonia; TSH wnl -has underlying dementia; alert and oriented x 2 at baseline -given enema -hypernatremia resolved Status: Acute Qualifiers: Altered mental status type: coma Coma depth: [place] coma 9-12 Coma timing: in the field (EMT or ambulance) Qualified Code(s): R40.2421 - Jonna coma scale score 9-12, in the field [EMT or ambulance] (3) Acute respiratory failure with hypoxia: -currently on RA -evidence of interstitial disease on CT -continue to monitor respiratory status -rapid COVID test negative, PCR positive -supplemental oxygen as needed -on broad spectrum IV antibiotics; noted significant leukocytosis, pro- calcitonin elevation, lactic acidosis; lactic acidosis has resolved -blood cx: prelim negative Status: Acute (4) Metabolic acidosis: -AG closed, improving metabolic acidosis Status: Acute (5) COVID-19: -Known COVID-19 infection approximately 2 weeks ago now with acute decompensation. Rapid testing negative, PCR positive -Isolation precautions -CT chest with noted groundglass interstitial lung disease currently involving the right upper and right lower lobes -on dexamethasone, pulmonary toilet, unable to do breathing treatments because of mental status -no PO meds as unable to place NGT successfully despite multiple attempts -negative influenza, MRSA, bacterial antigens, Legionella Status: Acute (6) Lactic acidosis: -likely secondary to infection Status: Acute (7) Acute hypernatremia: -Now normalized. Status: Resolved (8) Acute kidney injury: -secondary to dehydration -continue to monitor renal function -avoid nephrotoxins, renally dose meds -ACEi on hold Status: Acute (9) Elevated troponin: -noted elevated troponins in setting of acute renal impairment -telemetry monitoring -continue to monitor vital signs -Echo: EF=77%, moderate to severe LVH, G1DD Status: Acute Additional A&P Information -elevated D-dimer in setting of renal impairment, COVID-19 infection -hemoconcentration likely secondary to dehydration; trend CBC. Baseline Hg is around 10 -hx of obstructive pyelonephritis secondary to L proximal ureteral stone s/p L ureteral stent placement (08/2019) -Hypothyroidism; PO meds on hold -fecal impaction; multiple episodes of loose stool, rectal tube in place; bowel regimen -at least moderate protein calorie malnutrition; BMI-16 kg/m2; NPO currently due to mental status -Chronic constipation -HTN; hypotensive currently; received dose of albumin, NS bolus with improved BP -Chronic back pain -hx of AAA -Transaminitis; trend LFTs, improving -Rhabdomyolysis, CPK: 125->459; continue to trend CPK -GI ppx with famotidine -DVT ppx with lovenox -NPO due to mental status -Dispo: return to [facility] -Code status: DNR/DNI; ok with ICU admission, pressor support. DPOA is currently patient's cousin Jacki Barcenas. -Guarded prognosis -move to COVID unit on medical surgical floor Attestations Medical Necessity Statement*: Patient requires hospitalization for continued m anagement of DENISE, acute encephalopathy, COVID-19 pneumonia. Time Spent in Patient Care: 16 - 35 minutes (>than 50% of time spent in counselling and/or direct pt care on unit) . Coding Level of Care Code Acute Database Management 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 [facility] Fwd Diagnoses Sepsis A41.9; R65.21; J96.01 Sepsis type: sepsis due to unspecified organism Sepsis acute organ dysfunction status: with acute organ dysfunction Severe sepsis acute organ dysfunction type: acute respiratory failure Acute respiratory failure type: with hypoxia Severe sepsis shock status: with septic shock Altered mental status R40.2421 Altered mental status type: coma Coma depth: [place] coma 9-12 Coma timing: in the field (EMT or ambulance) Acute respiratory failure with hypoxia J96.01 Metabolic acidosis E87.2 COVID-19 U07.1 Lactic acidosis E87.2 Acute hypernatremia E87.0 Acute kidney injury N17.9 Elevated troponin R77.8
[2020-06-29 12:04] LABS: Glucose Point of Care 123 mg/dL (70-110)
[2020-06-29] MEDS: enoxaparin 40 mg/0.4 mL Syringe SUBCUT (12:23)
[2020-06-29] MEDS: dextrose 5%-sod chloride 0.45% 1,000 ML 50 ML IV (12:23)
[2020-06-29] MEDS: dexamethasone 4 mg/mL INJ 6 MG IVP (12:24)
[2020-06-29 16:46] LABS: Glucose Point of Care 144 mg/dL (70-110)
[2020-06-29] MEDS: morphine 4 mg/mL SDV 1 mL 1 MG IVP (18:23)
[2020-06-29 21:15] LABS: Glucose Point of Care 121 mg/dL (70-110)
[2020-06-29 23:54] LABS: Glucose Point of Care 113 mg/dL (70-110)
[2020-06-30] VITALS (18 sets, daily range): BP systolic 106–177; BP diastolic 63–96; PULSE 69–93; RESP 12–23; TEMP 36.3–37.1; O2SAT 91–98
--- NOTE | 2020-06-30 00:32 | PC.NURSE ---
PAIN Patient has appeared uncomfortable this shift and BP has been rising. IV morphine given for pain and will reassess BP.
[2020-06-30] MEDS: morphine 4 mg/mL SDV 1 mL 1 MG IVP ×2 (00:39→17:40)
[2020-06-30] MEDS: famotidine 20 mg/2 mL INJ IVP ×2 (00:42→12:19)
[2020-06-30 04:04] LABS: Glucose Point of Care 110 mg/dL (70-110)
[2020-06-30 04:43] LABS: Alanine Aminotransferase 41 U/L (0-33); Albumin Level 2.5 g/dL (3.5-5.2); Alkaline Phosphatase 80 IU/L (35-105); Anion Gap 11.8 (5-19); Aspartate Amino Transferase 33 U/L (0-32); Blood Urea Nitrogen 37 mg/dL (8-23); Calcium 8.2 mg/dL (8.5-10.5); Carbon Dioxide 20 mmol/L (22-29); Chloride 114 mmol/L (98-107); Globulin 2.3 g/dL (1.3-4.6); Glucose 119 mg/dL (65-115); Osmolality Calculated 304 mOsm/kg (285-295); Potassium 3.8 mmol/L (3.5-5.1); Sodium 142 mmol/L (136-145); Total Bilirubin 0.3 mg/dL (0.15-1.2); Total Protein 4.8 g/dL (6.6-8.7)
[2020-06-30 04:48] LABS: Fibrinogen 393 mg/dL (174-498)
[2020-06-30 05:14] LABS: Ferritin 1463 ng/mL (15-150)
[2020-06-30 05:15] LABS: Creatine Phosphokinase 404 U/L (26-192)
[2020-06-30] MEDS: piperacillin-tazobactam 3.375 GM in sodium chloride 0.9% (plus) 50 ML IV ×2 (06:01→17:40)
[2020-06-30 06:23] LABS: Glucose Point of Care 111 mg/dL (70-110)
[2020-06-30 08:03] LABS: Glucose Point of Care 97 mg/dL (70-110)
[2020-06-30] MEDS: dextrose 5%-sod chloride 0.45% 1,000 ML 50 ML IV (09:24)
[2020-06-30] MEDS: dexamethasone 4 mg/mL INJ 6 MG IVP (10:40)
[2020-06-30] MEDS: enoxaparin 40 mg/0.4 mL Syringe SUBCUT (12:19)
[2020-06-30 12:46] LABS: Glucose Point of Care 107 mg/dL (70-110)
--- NOTE | 2020-06-30 13:45 | PM.PN ---
Subjective Subjective: Interval history: She is awake, confused. Vocalization when spoken to, but does not answer any questions. Does not follow commands. Vitals/I&O/Wt Last Vital Signs Temp 97.4 F L 06/30/20 08:00 Pulse 79 06/30/20 10:00 Resp 15 06/30/20 10:00 BP 149/82 06/30/20 10:00 Pulse Ox 96 06/30/20 10:00 06/29/20 06/30/20 06/30/20 22:59 06:59 14:59 Intake Total 50 / 1200 1000 / 1000 Output Total 700 / 1725 790 / 2515 Balance -650 / -525 -790 / -1315 1000 / 1000 Weight last 48 hrs Weight 49.85 kg Weight 51.936 kg Physical Exam Const: COMMON NORMALS: no acute distress; negative for patient oriented x3 ORIENTATION/CONSCIOUSNESS: Yes awake and Yes confused HENMT: COMMON NORMALS: oropharynx normal Neck/C-Spine: COMMON NORMALS: no JVD Resp: COMMON NORMALS: normal respiratory effort and clear to auscultation bilaterally AUSCULTATION: clear to auscultation bilaterally Cardio: COMMON NORMALS: no JVD, regular rhythm, S1 normal heart sound present, S2 normal heart sound present and No murmurs present (Cardio) RHYTHM: regular rhythm HEART SOUNDS: S1 normal heart sound present and S2 normal heart sound present GI: COMMON NORMALS: Normal to inspection, nondistended, normoactive bowel sounds present, Soft to palpation and non-tender PALPATION: Yes Soft to palpation Extremity: COMMON NORMALS: no joint enlargement and no pedal edema Neuro: COMMON NORMALS: moves all extremities; negative for patient oriented x3 Skin: COMMON NORMALS: no rashes or lesions noted GENERAL SKIN EXAM: no rashes or lesions noted Urinary Catheter Management^: Stone: Cath Placed During This Visit: yes Reason for Continuing Indwelling Catheter: Accurate Measurement of Urinary Output in Critically Ill Patients Urinary Catheter Date of Insertion: 06/27/20 Data : 06/28/20 04:10 06/30/20 03:35 A&P Assessment and plan (1) Sepsis: Sepsis improving. Has had some persistent leukocytosis, although hypotension, tachycardia improved. Hypoxia resolved, and is currently on room air. Persistent encephalopathy. She does not participate with exam, but does not have an easily detectable focal neurologic abnormalities. I do not see any facial droop, appears to be perhaps moving all extremities, although is mostly withdrawn and not really initiating to any movements. Chronic encephalomalacia noted in bilateral cerebellar hemispheres, occipital lobes, posterior parietal lobes, bilateral frontal lobes, and right frontoparietal convexity. We will go and repeat CT head. Reports she is more alert compared to how she was on admission. At this time continue supportive care, antibiotics for improving sepsis. Continues with diarrhea after impaction resolved. Will check for C. difficile. Abdomen soft. No grimace. Discussed with her power of contracts attorney. We discussed that unfortunately her mental status is not improved so far. It is difficult to say when or whether at all delirium may improve/resolve. Discussed that at this time she has not been able to eat or drink. She would like to give additional time to try to recover from acute conditions and see if her mental status will improve, continue supportive care. If needed she would be agreeable to add PPN short-term, not to be continued long-term. And at this time she is not aware of any prior wishes with regards to something like a feeding. She feels like this may be something that she may not wanted, but states would have to discuss in detail with both patient stepsister as well as daughter. -Previously sepsis as evidenced by significant leukocytosis, hypotension, tachycardia, hypoxia, lactic acidosis, with evidence of end-organ injury (DENISE, acute encephalopathy) -Known COVID-19 infection approximately 2 weeks ago now with acute decompensation. Rapid testing negative, PCR positive -Isolation precautions -CT chest with noted ground-glass interstitial lung disease currently involving the right upper and right lower lobes Status: Acute Qualifiers: Acute respiratory failure type: with hypoxia Sepsis acute organ dysfunction status: with acute organ dysfunction Sepsis type: sepsis due to unspecified organism Severe sepsis acute organ dysfunction type: acute respiratory failure Severe sepsis shock status: with septic shock Qualified Code(s): A41.9 - Sepsis, unspecified organism; R65.21 - Severe sepsis with septic shock; J96.01 - Acute respiratory failure with hypoxia (2) Altered mental status: Suspect acute delirium superimposed on chronic dementia. Appears to have chronic encephalomalacia in multiple areas. Additional assessment as above. Oxygenation has been improving. Hypernatremia resolved. Thickened infection resolved. Septic shock resolved. Reportedly more alert, but is not communicating or following any commands. -Likely multifactorial origin of delirium given septic shock, fecal impaction, likely COVID-19 infection, hypernatremia -unable to place NGT appropriately due to hiatal hernia -ammonia; TSH wnl -has underlying dementia; alert and oriented x 2 at baseline Status: Acute Qualifiers: Altered mental status type: coma Coma depth: [place] coma 9-12 Coma timing: in the field (EMT or ambulance) Qualified Code(s): R40.2421 - Jonna coma scale score 9-12, in the field [EMT or ambulance] (3) Acute respiratory failure with hypoxia: Resolved. MRSA negative by PCR. We will go ahead and stop vancomycin. Recheck CBC. -currently on RA -evidence of interstitial disease on CT -continue to monitor respiratory status -rapid COVID test negative, PCR positive -supplemental oxygen as needed -on broad spectrum IV antibiotics; noted significant leukocytosis, pro-calcitonin elevation, lactic acidosis; lactic acidosis has resolved -blood cx: prelim negative. Bacterial urine antigen including Legionella negative. Status: Acute (4) Metabolic acidosis: -AG closed, improving metabolic acidosis Status: Acute (5) COVID-19: -Known COVID-19 infection approximately 2 weeks ago now with acute decompensation. Rapid testing negative, PCR positive -Isolation precautions Hypoxia resolved. -CT chest with noted groundglass interstitial lung disease currently involving the right upper and right lower lobes -on dexamethasone, pulmonary toilet, unable to do breathing treatments because of mental status -no PO meds as unable to place NGT successfully despite multiple attempts -negative influenza, MRSA, bacterial antigens, Legionella Status: Acute (6) Lactic acidosis: -likely secondary to infection Status: Acute (7) Acute hypernatremia: -Now normalized. Status: Resolved (8) Acute kidney injury: -secondary to dehydration -continue to monitor renal function -avoid nephrotoxins, renally dose meds -ACEi on hold Status: Acute (9) Elevated troponin: -noted elevated troponins in setting of acute renal impairment -telemetry monitoring -continue to monitor vital signs -Echo: EF=77%, moderate to severe LVH, G1DD Status: Acute Additional A&P Information -elevated D-dimer in setting of renal impairment, COVID-19 infection, cont prophylactic lovenox -hemoconcentration likely secondary to dehydration; trend CBC. Baseline Hg is around 10 -hx of obstructive pyelonephritis secondary to L proximal ureteral stone s/p L ureteral stent placement (08/2019) -Hypothyroidism; PO meds on hold -fecal impaction resolved; multiple episodes of loose stool, rectal tube in place; check C. difficile. -at least moderate protein calorie malnutrition; BMI-16 kg/m2; NPO currently due to mental status -Chronic constipation -HTN; hypotensive currently; received dose of albumin, NS bolus with improved BP -Chronic back pain -hx of AAA -Transaminitis; trend LFTs, improving -Rhabdomyolysis, CPK: 125->459; continue to trend CPK -GI ppx with famotidine -DVT ppx with lovenox -NPO due to mental status -Dispo: return to [facility] -Code status: DNR/DNI; ok with ICU admission, pressor support. DPOA is currently patient's cousin Jacki Barcenas. Attestations Medical Necessity Statement*: Continue admission for assessment management of improving sepsis, persistent delirium/acute encephalopathy superimposed on chronic dementia. Coding Level of Care Code Acute Health Plan Advisor for [facility] Fwd Exam Comprehensive Diagnoses Sepsis A41.9; R65.21; J96.01 Acute respiratory failure type: with hypoxia Sepsis acute organ dysfunction status: with acute organ dysfunction Sepsis type: sepsis due to unspecified organism Severe sepsis acute organ dysfunction type: acute respiratory failure Severe sepsis shock status: with septic shock Altered mental status R40.2421 Altered mental status type: coma Coma depth: [place] coma 9-12 Coma timing: in the field (EMT or ambulance) Acute respiratory failure with hypoxia J96.01 Metabolic acidosis E87.2 COVID-19 U07.1 Lactic acidosis E87.2 Acute hypernatremia E87.0 Acute kidney injury N17.9 Elevated troponin R77.8
--- NOTE | 2020-06-30 13:46 | CTR_ITS ---
PROCEDURE INFORMATION: Exam: CT Head Without Contrast Exam date and time: 06/30/2020 2:19 PM Age: 75 years old Clinical indication: Altered mental status/memory loss; Patient HX: Covid+; Additional info: AMS TECHNIQUE: Imaging protocol: Computed tomography of the head without contrast. Sagittal and coronal reformatted images were created and reviewed. Radiation optimization: All CT scans at this facility use at least one of these dose optimization techniques: automated exposure control; mA and/or kV adjustment per patient size (includes targeted exams where dose is matched to clinical indication); or iterative reconstruction. COMPARISON: CT head wo con* [id number] 06/26/2020 2:13 PM RADIATION DOSE METRICS: Total DLP (mGy-cm): 624.07 FINDINGS: Brain: No acute intracranial hemorrhage. No acute infarct. No intra-axial or extra-axial masses. Simmons-white matter differentiation is preserved. No cerebral edema. No extra-axial fluid collections. No midline shift. No evidence for Chiari 1 malformation. Stable moderate atrophy of the brain parenchyma. Stable markedly decreased attenuation in the deep white matter, consistent with severe chronic microangiopathic change. 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 Bilateral basal ganglia calcifications. Cerebral ventricles: No hydrocephalus. Bones/joints: Stable moderate left nasal septal deviation. Paranasal sinuses: Focal opacification in a right ethmoid sinus. Other paranasal sinuses are clear. Mastoid air cells: Stable moderate amount of fluid in the right and left mastoid air cells. Orbital cavity: Globes and lenses, extraocular muscles, and optic nerves are intact bilaterally. No acute intraorbital abnormality. Vasculature: Atherosclerotic changes in the visualized arteries. Soft tissues: No acute abnormality of the extracranial soft tissues. Dental: The patient is edentulous. CT/CT head wo con* [id number] IMPRESSION: 1. No acute abnormality of the brain. 2. Stable moderate atrophy of the brain parenchyma. 3. 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 4. 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 5. Stable moderate amount of fluid in the right and left mastoid air cells. 6. Incidental/nonacute findings are listed in the report. Radiation Dose CTDIVOL = (mGy): DLP = 624.07 (mGy-cm)
[2020-06-30 14:18] LABS: Glucose Point of Care 116 mg/dL (70-110)
[2020-06-30 17:08] LABS: Glucose Point of Care 145 mg/dL (70-110)
[2020-06-30 21:23] LABS: Glucose Point of Care 107 mg/dL (70-110)
[2020-07-01 00:35] VITALS: BP 134/70; PULSE 58; RESP 16; TEMP 36.6; O2SAT 93
[2020-07-01 01:20] LABS: Basophils # 0.1 10^3/uL (0.0-0.1); Basophils % 0.3 %; Hematocrit 31.2 % (37.0-47.0); Hemoglobin 10.1 g/dL (11.5-15.3); Lymphocytes % 6.4 %; Mean Corpuscular HGB Conc 32.4 g/dL (30.0-36.0); Mean Corpuscular Volume 89.7 fL (81-99); Mean Platelet Volume 11.7 fL (7.4-10.4); Monocytes # 0.8 10^3/uL (0.2-0.9); Monocytes % 4.9 %; Neutrophils # 13.77 10^3/uL (1.8-7.7); Neutrophils % 84.4 %; Nucleated Red Blood Cells % 0 %; Platelet Count 146 10^3/cmm (130-400); Red Blood Count 3.48 10^6/uL (4.1-5.3); Red Cell Distribution Width 13.6 % (12.1-15.1); White Blood Count 16.3 10^3/uL (4.0-10.0)
[2020-07-01 01:41] LABS: C Reactive Protein 11.9 mg/L (0.0-4.9); Vancomycin Trough 5.2 ug/mL (10-15)
[2020-07-01 01:42] LABS: Alanine Aminotransferase 39 U/L (0-33); Albumin Level 2.5 g/dL (3.5-5.2); Alkaline Phosphatase 85 IU/L (35-105); Anion Gap 11.7 (5-19); Aspartate Amino Transferase 38 U/L (0-32); Blood Urea Nitrogen 28 mg/dL (8-23); Calcium 8.2 mg/dL (8.5-10.5); Carbon Dioxide 21 mmol/L (22-29); Chloride 112 mmol/L (98-107); Globulin 2.3 g/dL (1.3-4.6); Glucose 100 mg/dL (65-115); Osmolality Calculated 298 mOsm/kg (285-295); Potassium 3.7 mmol/L (3.5-5.1); Sodium 141 mmol/L (136-145); Total Bilirubin 0.3 mg/dL (0.15-1.2); Total Protein 4.8 g/dL (6.6-8.7)
[2020-07-01 01:54] LABS: Creatine Phosphokinase 340 U/L (26-192)
[2020-07-01 02:44] LABS: Glucose Point of Care 93 mg/dL (70-110)
[2020-07-01 02:44] LABS: Glucose Point of Care 93 mg/dL (70-110)
[2020-07-01] MEDS: famotidine 20 mg/2 mL INJ IVP ×2 (02:44→12:42)
[2020-07-01 04:00] VITALS: BP 143/78; PULSE 66; RESP 18; TEMP 36.5; O2SAT 100
[2020-07-01] MEDS: piperacillin-tazobactam 3.375 GM in sodium chloride 0.9% (plus) 50 ML IV ×2 (05:30→17:38)
[2020-07-01] MEDS: dextrose 5%-sod chloride 0.45% 1,000 ML 50 ML IV (05:36)
[2020-07-01 06:28] LABS: Glucose Point of Care 86 mg/dL (70-110)
[2020-07-01 08:00] VITALS: BP 146/69; PULSE 84; RESP 18; TEMP 36.6; O2SAT 98
--- NOTE | 2020-07-01 10:45 | PC.SOCIAL ---
[facility] Updated Page 2 of [facility] updated with patient's family member Jacki by phone. She verbalizes understanding. Initialed, dated, and timed and placed back in chart. Will send to medical records at time of d/c to be scanned into her EHR as she is on isolation for COVID.
[2020-07-01 10:51] LABS: Glucose Point of Care 89 mg/dL (70-110)
[2020-07-01 12:00] VITALS: BP 122/71; PULSE 73; RESP 18; TEMP 36.7; O2SAT 97
[2020-07-01] MEDS: dexamethasone 4 mg/mL INJ 6 MG IVP (12:42)
[2020-07-01] MEDS: enoxaparin 40 mg/0.4 mL Syringe SUBCUT (12:43)
[2020-07-01 16:00] VITALS: BP 126/74; PULSE 75; RESP 18; TEMP 36.8; O2SAT 97
[2020-07-01 16:37] LABS: Glucose Point of Care 156 mg/dL (70-110)
--- NOTE | 2020-07-01 18:45 | PM.PN ---
Subjective Subjective: Interval history: Looks around, occasionally responds to voice, but inconsistently, does not follow commands, does not speak or not. Not in distress. Vitals/I&O/Wt Last Vital Signs Temp 98.2 F 07/01/20 16:00 Pulse 75 07/01/20 16:00 Resp 18 07/01/20 16:00 BP 126/74 07/01/20 16:00 Pulse Ox 97 07/01/20 16:00 07/01/20 07/01/20 07/01/20 06:59 14:59 22:59 Intake Total 1000 / 2100 50 / 50 Output Total 625 / 625 Balance 1000 / 1400 50 / 50 -625 / -575 Weight last 48 hrs Weight 49.85 kg Physical Exam Const: COMMON NORMALS: no acute distress; negative for patient oriented x3 ORIENTATION/CONSCIOUSNESS: Yes awake and Yes confused HENMT: COMMON NORMALS: oropharynx normal Neck/C-Spine: COMMON NORMALS: no JVD Resp: COMMON NORMALS: normal respiratory effort and clear to auscultation bilaterally AUSCULTATION: clear to auscultation bilaterally Cardio: COMMON NORMALS: no JVD, regular rhythm, S1 normal heart sound present, S2 normal heart sound present and No murmurs present (Cardio) RHYTHM: regular rhythm HEART SOUNDS: S1 normal heart sound present and S2 normal heart sound present GI: COMMON NORMALS: Normal to inspection, nondistended, normoactive bowel sounds present, Soft to palpation and non-tender PALPATION: Yes Soft to palpation Extremity: COMMON NORMALS: no joint enlargement and no pedal edema Neuro: COMMON NORMALS: moves all extremities; negative for patient oriented x3 Skin: COMMON NORMALS: no rashes or lesions noted GENERAL SKIN EXAM: no rashes or lesions noted Urinary Catheter Management^: Stone: Cath Placed During This Visit: yes Reason for Continuing Indwelling Catheter: Accurate Measurement of Urinary Output in Critically Ill Patients Urinary Catheter Date of Insertion: 06/27/20 Data : 07/01/20 00:58 07/01/20 00:58 Micro: Microbiology 06/26/20 15:45 Blood Culture - Final Blood NO GROWTH AFTER 5 DAYS 06/26/20 15:30 Blood Culture - Final Blood NO GROWTH AFTER 5 DAYS 06/30/20 16:32 C.difficile Toxin B Gene (PCR) - Final Stool - Stool Aspirate A&P Assessment and plan (1) Sepsis: Sepsis appears to be improving. Leukocytosis is decreasing down to 16,000. She is afebrile. Discussed with her power of workers compensation defense attorney, unfortunately her mental status has not been improving. His D-dimer is down to 1.3. He continues on Eliquis. At this time we will continue treatment of underlying conditions. Her power of workers compensation defense attorney would like to be sure that infection, metabolic issues are resolved prior to making additional decisions with regards to goals of care. Reported she is more alert compared to how she was on admission. At this time continue supportive care, antibiotics for improving sepsis. Continues with diarrhea after impaction resolved. Abdomen soft. No grimace. Continue Zosyn at this time due to concern for aspiration given persistent encephalopathy versus progression of vascular dementia, and I am not sure if she is protecting her airway adequately as discussed with her POA. Will request for additional assessment by [facility]BS. -Previously sepsis as evidenced by significant leukocytosis, hypotension, tachycardia, hypoxia, lactic acidosis, with evidence of end-organ injury (DENISE, acute encephalopathy) -Known COVID-19 infection approximately 2 weeks ago now with acute decompensation. Rapid testing negative, PCR positive -Isolation precautions -CT chest with noted ground-glass interstitial lung disease currently involving the right upper and right lower lobes Status: Acute Qualifiers: Sepsis type: sepsis due to unspecified organism Sepsis acute organ dysfunction status: with acute organ dysfunction Severe sepsis acute organ dysfunction type: acute respiratory failure Acute respiratory failure type: with hypoxia Severe sepsis shock status: with septic shock Qualified Code(s): A41.9 - Sepsis, unspecified organism; R65.21 - Severe sepsis with septic shock; J96.01 - Acute respiratory failure with hypoxia (2) Altered mental status: Repeat CT scan showing moderate encephalomalacia, parenchymal volume loss. Discussed with her power of workers compensation defense attorney. Appears to also show stable infarcts in left frontal lobe, parietal occipital lobes. Timing of the CVA is unclear. Discussed that we cannot exclude that may not have had some prior strokes in addition to the old ones. We will start on aspirin [place]. Unfortunately not take anything by mouth currently. Her blood pressures have been at goal. A1c was 5.5 on 06/27. Echocardiogram was done showing 77% ejection fraction, grade 1 diastolic dysfunction. Severe calcification of the valves, but no significant stenosis or regurgitation. Once able to tolerate oral intake start on statin. Will check carotid duplex. Monitor on telemetry. Discussed with POA concerned that this may be progression of vascular dementia. At this time we will continue treating other medical causes, infection, will start on TPN support while assessing for possible poor airway protection/aspiration. POA would like to be certain that infection and other causes potentially causing encephalopathy are treated prior to additional goals of care discussion. We will continue to revisit. Oxygenation has been improving. Leukocytosis trending down. Hypernatremia resolved. Fecal impaction resolved. Septic shock resolved. Reportedly more alert, but is not communicating or following any commands. -unable to place NGT appropriately due to hiatal hernia -ammonia; TSH wnl -has underlying dementia; alert and oriented x 2 at baseline Status: Acute Qualifiers: Altered mental status type: coma Coma depth: [place] coma 9-12 Coma timing: in the field (EMT or ambulance) Qualified Code(s): R40.2421 - [place] coma scale score 9-12, in the field [EMT or ambulance] (3) Acute respiratory failure with hypoxia: Resolved. Sepsis improving. Leukocytosis trending down. Sepsis improving, leukocytosis trending down. Today down to 16.3. MRSA negative by PCR. Vancomycin was discontinued. Continue Zosyn for now due to concern for aspiration, possibly for airway protection. Recheck CBC. -currently on RA -evidence of interstitial disease on CT -continue to monitor respiratory status -rapid COVID test negative, PCR positive -supplemental oxygen as needed -on broad spectrum IV antibiotics; noted significant leukocytosis, pro-calcitonin elevation, lactic acidosis; lactic acidosis has resolved -blood cx: prelim negative. Bacterial urine antigen including Legionella negative. Status: Acute (4) Metabolic acidosis: -AG closed, improving metabolic acidosis Status: Acute (5) COVID-19: -Known COVID-19 infection approximately 2 weeks ago now with acute decompensation. Rapid testing negative, PCR positive -Isolation precautions Hypoxia resolved. -CT chest with noted groundglass interstitial lung disease currently involving the right upper and right lower lobes -on dexamethasone, pulmonary toilet, unable to do breathing treatments because of mental status -no PO meds as unable to place NGT successfully despite multiple attempts -negative influenza, MRSA, bacterial antigens, Legionella Status: Acute (6) Lactic acidosis: -likely secondary to infection Status: Acute (7) Acute hypernatremia: -Now normalized. Status: Resolved (8) Acute kidney injury: -secondary to dehydration -continue to monitor renal function -avoid nephrotoxins, renally dose meds -ACEI on hold Status: Acute (9) Elevated troponin: -noted elevated troponins in setting of acute renal impairment -telemetry monitoring -continue to monitor vital signs -Echo: EF=77%, moderate to severe LVH, G1DD Status: Acute Additional A&P Information -elevated D-dimer in setting of renal impairment, COVID-19 infection, cont prophylactic lovenox -hemoconcentration likely secondary to dehydration; trend CBC. Baseline Hg is around 10 -hx of obstructive pyelonephritis secondary to L proximal ureteral stone s/p L ureteral stent placement (08/2019) -Hypothyroidism; PO meds on hold -fecal impaction resolved; multiple episodes of loose stool, rectal tube in place; check C. difficile. -at least moderate protein calorie malnutrition; BMI-16 kg/m2; NPO currently due to mental status -Chronic constipation -HTN; hypotensive currently; received dose of albumin, NS bolus with improved BP -Chronic back pain -hx of AAA -Transaminitis; trend LFTs, improving -Rhabdomyolysis, CPK: 125->459; continue to trend CPK -GI ppx with famotidine -DVT ppx with lovenox -NPO due to mental status -Dispo: return to [facility] -Code status: DNR/DNI; ok with ICU admission, pressor support. DPWANDA Barcenas. Attestations Medical Necessity Statement*: Continue admission for assessment of management of acute encephalopathy, resolving sepsis, COVID-19 infection, pneumonia, possibly aspiration with additional assessment for this. Coding Level of Care Code Acute Recycling Coordinator for [facility] Diagnoses Sepsis A41.9; R65.21; J96.01 Sepsis type: sepsis due to unspecified organism Sepsis acute organ dysfunction status: with acute organ dysfunction Severe sepsis acute organ dysfunction type: acute respiratory failure Acute respiratory failure type: with hypoxia Severe sepsis shock status: with septic shock Altered mental status R40.2421 Altered mental status type: coma Coma depth: [place] coma 9-12 Coma timing: in the field (EMT or ambulance) Acute respiratory failure with hypoxia J96.01 Metabolic acidosis E87.2 COVID-19 U07.1 Lactic acidosis E87.2 Acute hypernatremia E87.0 Acute kidney injury N17.9 Elevated troponin R77.8
[2020-07-01 19:58] VITALS: BP 122/73; PULSE 74; RESP 18; TEMP 36.6; O2SAT 96
[2020-07-01 21:13] LABS: Glucose Point of Care 120 mg/dL (70-110)
[2020-07-01] MEDS: AA-Dex 5%-20% w/Lytes 1,000 ML 10 ML IV (22:16)
[2020-07-01] MEDS: aspirin 300 mg Supp PR (22:21)
[2020-07-02] VITALS (8 sets, daily range): BP systolic 88–168; BP diastolic 60–79; PULSE 57–77; RESP 14–19; TEMP 36–36.6; O2SAT 90–100
[2020-07-02] MEDS: dextrose 5%-sod chloride 0.45% 1,000 ML 50 ML IV ×2 (00:20→21:37)
[2020-07-02 00:28] LABS: Glucose Point of Care 127 mg/dL (70-110)
[2020-07-02] MEDS: famotidine 20 mg/2 mL INJ IVP ×2 (00:32→12:28)
[2020-07-02] MEDS: morphine 4 mg/mL SDV 1 mL 1 MG IVP (01:09)
[2020-07-02 05:07] LABS: Hemoglobin 10.5 g/dL (11.5-15.3); Mean Corpuscular HGB Conc 32.8 g/dL (30.0-36.0); Mean Corpuscular Hemoglobin 29.2 pg (28.0-34.0); Mean Corpuscular Volume 88.9 fL (81-99); Mean Platelet Volume 11.3 fL (7.4-10.4); Platelet Count 158 10^3/cmm (130-400); Red Cell Distribution Width 13.4 % (12.1-15.1); White Blood Count 13.2 10^3/uL (4.0-10.0)
[2020-07-02 05:24] LABS: Glucose Point of Care 118 mg/dL (70-110)
[2020-07-02 05:31] LABS: Alanine Aminotransferase 101 U/L (0-33); Albumin Level 2.5 g/dL (3.5-5.2); Alkaline Phosphatase 115 IU/L (35-105); Anion Gap 10.2 (5-19); Aspartate Amino Transferase 94 U/L (0-32); Blood Urea Nitrogen 22 mg/dL (8-23); Calcium 7.8 mg/dL (8.5-10.5); Carbon Dioxide 22 mmol/L (22-29); Chloride 107 mmol/L (98-107); Globulin 2.3 g/dL (1.3-4.6); Glucose 183 mg/dL (65-115); Osmolality Calculated 290 mOsm/kg (285-295); Potassium 3.2 mmol/L (3.5-5.1); Sodium 136 mmol/L (136-145); Total Bilirubin 0.4 mg/dL (0.15-1.2); Total Protein 4.8 g/dL (6.6-8.7)
[2020-07-02] MEDS: piperacillin-tazobactam 3.375 GM in sodium chloride 0.9% (plus) 50 ML IV ×3 (07:06→22:00)
[2020-07-02 07:32] LABS: Slide Review Slide Review Perform
[2020-07-02 07:33] LABS: Absolute Segmented Neutrophil 10.3 10/cmm (1.6-7.1); Band Neutrophils Absolute 0.7 10^3/cmm (0.0-1.2); Lymphocytes 9 %; Monocytes Absolute 0.4 10^3/cmm (0.1-0.6); Segmented Neutrophils 78 %; Total Cells Counted 100 (0-100)
[2020-07-02 07:34] LABS: Eosinophils 0 %; Platelet Estimate Decreased (Normal); Poikilocytosis 1+
--- NOTE | 2020-07-02 08:05 | US_ITS ---
WS: [id number] ULTRASOUND ABDOMEN LIMITED CLINICAL INFORMATION: liver, bile ducts - transaminitis COMPARISON: None. FINDINGS: Liver Size: Normal. Craniocaudal length: 15.8 cm. Echogenicity: Normal. Surface nodularity: None. Mass (size and location): None. Bile ducts Intrahepatic ducts: Normal. Common bile duct diameter: 0.2 cm. Gallbladder Sludge Gallstones: None. Gallbladder sludge: Present Gallbladder wall thickening: None. Pericholecystic fluid: None. Sonographic Oconnell sign: Absent. Pancreas Not well visualized Right kidney: Normal. Hydronephrosis: None. Size: 9.3 cm x 3.9 cm x 4.1 cm. Infrarenal abdominal aortic aneurysm measuring 3.2 x 3.3 cm Ascites: None. US/US abdomen limited [id number] IMPRESSION: 1. Normal liver. 2. Sludge within the gallbladder. Normal common bile duct. No wall thickening. 3. Small infrarenal abdominal aortic aneurysm measuring 3.2 x 3.3 cm
[2020-07-02 09:18] LABS: Glucose Point of Care 110 mg/dL (70-110)
[2020-07-02] MEDS: potassium chloride premix 100 ML 50 MEQ IV (10:37)
[2020-07-02 11:20] LABS: Hepatitis A Antibody IgM Non-Reactive (Nonreactive); Hepatitis B Core IgM Non-Reactive (Nonreactive); Hepatitis B Surface Antigen Non-Reactive (Nonreactive); Hepatitis C Virus Antibody Non-Reactive (Nonreactive)
[2020-07-02] MEDS: enoxaparin 40 mg/0.4 mL Syringe SUBCUT (12:28)
[2020-07-02] MEDS: dexamethasone 4 mg/mL INJ 6 MG IVP (12:28)
[2020-07-02 14:21] LABS: Glucose Point of Care 117 mg/dL (70-110)
[2020-07-02 18:29] LABS: Glucose Point of Care 215 mg/dL (70-110)
--- NOTE | 2020-07-02 19:20 | USCV_ITS ---
Bree Hernandes Age: 75 Gender: F : 1945 Exam Date: 07/02/2020 06:25 Ordering Phys: Will Lindsay MD Technologist: Henrietta Anthony Exam Location: [facility] [place] Indication: CVA Risk Factors: Previous Vascular Surgery: Right Brachial BP: / Left Brachial BP: / Right Left Velocity (cm/s) Spectral Plaque Velocity (cm/s) Spectral Plaque Syst/Diast Broadening Syst/Diast Broadening 47.40/ 16.50 Prox CCA 156.70/ 9.60 63.90/ 25.40 Mid CCA 100.30/ 13.70 61.70/ 19.80 Distal CCA 104.10/ 6.40 66.20/ 17.60 Prox ICA 52.80 / 10.60 40.40/ 18.60 Mid ICA 38.40 / 6.80 39.10/ 16.40 Distal ICA 55.80 / 7.50 62.80 ECA 46.00 1.03 ICA/CCA 0.56 Antegrade Vertebral Antegrade 32.70/ 10.50 cm/s 49.40/ 4.50 cm/s Bi Subclavian Bi 64.70 92.40 CONCLUSIONS Right ICA stenosis <50%. Mild atheromatous plaque right carotid bulb/ICA. Left ICA stenosis <50%. Mild atheromatous plaque left carotid bulb/ICA. Normal antegrade Doppler flow noted in the right vertebral artery. Normal antegrade Doppler flow noted in the left vertebral artery. Chandana Sauer MD (Electronically Signed) Final Date: 02 July 2020 09:19 S
[2020-07-02 20:08] LABS: Glucose Point of Care 233 mg/dL (70-110)
--- NOTE | 2020-07-02 20:46 | P.PN_ITS ---
Subjective Subjective: Interval history: She is sleepy today, wakes up to voice, but easily falls back asleep. Does not answer any questions. Does not follow commands. Vitals/I&O/Wt Last Vital Signs Temp 96.8 F L 07/02/20 19:36 Pulse 64 07/02/20 19:36 Resp 19 H 07/02/20 19:36 BP 104/70 07/02/20 19:36 Pulse Ox 97 07/02/20 19:36 07/02/20 07/02/20 07/02/20 06:59 14:59 22:59 Intake Total 936.667 / 1036.667 150 / 150 Output Total 350 / 975 275 / 275 Balance 586.667 / 61.667 150 / 150 -275 / -125 Physical Exam Const: COMMON NORMALS: no acute distress; negative for patient oriented x3 GENERAL APPEARANCE: lethargic ORIENTATION/CONSCIOUSNESS: Yes confused and Yes lethargic HENMT: COMMON NORMALS: oropharynx normal Neck/C-Spine: COMMON NORMALS: no JVD Resp: COMMON NORMALS: normal respiratory effort and clear to auscultation bilaterally AUSCULTATION: clear to auscultation bilaterally Cardio: COMMON NORMALS: no JVD, regular rhythm, S1 normal heart sound present, S2 normal heart sound present and No murmurs present (Cardio) RHYTHM: regular rhythm HEART SOUNDS: S1 normal heart sound present and S2 normal heart sound present GI: COMMON NORMALS: Normal to inspection, nondistended, normoactive bowel sounds present, Soft to palpation and non-tender PALPATION: Yes Soft to palpation Extremity: COMMON NORMALS: no joint enlargement and no pedal edema Neuro: COMMON NORMALS: moves all extremities; negative for patient oriented x3 SENSORIUM/ORIENTATION: Yes lethargic Skin: COMMON NORMALS: no rashes or lesions noted GENERAL SKIN EXAM: no rashes or lesions noted Urinary Catheter Management^: Stone: Cath Placed During This Visit: yes Reason for Continuing Indwelling Catheter: Assist Healing of Perineal & Sacral Wounds- Incontinent Patients Urinary Catheter Date of Insertion: 06/27/20 Data : 07/02/20 04:35 07/02/20 04:35 Micro: Microbiology 06/26/20 15:45 Blood Culture - Final Blood NO GROWTH AFTER 5 DAYS 06/26/20 15:30 Blood Culture - Final Blood NO GROWTH AFTER 5 DAYS A&P Assessment and plan (1) Sepsis: Leukocytosis continue to improve. Blood pressure soft today, given small bolus of LR 250 mL, with improvement to 104/70. Afebrile, although temperature appears to be perhaps low 96.8. Will recheck TSH. Continue antibiotic. Transaminitis noted worse today. Obtain abdominal ultrasound. Sludge noted within gallbladder. Normal CBD. No wall thickening. Normal liver. Small infrarenal AAA which is known. 3.2 x 3.3 cm. Speech therapy assessment for aspiration. DDimer trending down. He continues on Eliquis. At this time we will continue treatment of underlying conditions. Her power of document review attorney would like to be sure that infection, metabolic issues are resolved prior to making additional decisions with regards to goals of care. Reported she is more alert compared to how she was on admission. At this time continue supportive care, antibiotics for improving sepsis. Continues with diarrhea after impaction resolved. Abdomen soft. No grimace. -Previously sepsis as evidenced by significant leukocytosis, hypotension, tachycardia, hypoxia, lactic acidosis, with evidence of end-organ injury (DENISE, acute encephalopathy) -Known COVID-19 infection approximately 2 weeks ago now with acute decompensation. Rapid testing negative, PCR positive -Isolation precautions -CT chest with noted ground-glass interstitial lung disease currently involving the right upper and right lower lobes Status: Acute Qualifiers: Sepsis type: sepsis due to unspecified organism Sepsis acute organ dysfunction status: with acute organ dysfunction Severe sepsis acute organ dysfunction type: acute respiratory failure Acute respiratory failure type: with hypoxia Severe sepsis shock status: with septic shock Qualified Code(s): A41.9 - Sepsis, unspecified organism; R65.21 - Severe sepsis with septic shock; J96.01 - Acute respiratory failure with hypoxia (2) Altered mental status: Not much improvement today. Carotid doppler with <50% stenosis bilaterally, mild atheromatous plaque of internal carotid arteries. Normal vertebrals. Continue treatment of sepsis, pneumonia as above. Assess for aspiration. Recheck TSH. Given small bolus today due to soft blood pressure. Monitor. Repeat CT scan showing moderate encephalomalacia, parenchymal volume loss. Disc ussed with her power of document review attorney. Appears to also show stable infarcts in left frontal lobe, parietal occipital lobes. Timing of the CVA is unclear. Discussed that we cannot exclude that may not hav e had some prior strokes in addition to the old ones. Aspirin [place]. Unfortunately not take anything by mouth currently. Her blood pressures have been at goal. A1c was 5.5 on 06/27. Echocardiogram wa s done showing 77% ejection fraction, grade 1 diastolic dysfunction. Severe calcification of the valves, but no significant stenosis or regurgitation. Once able to tolerate oral intake start on statin. Monitor on telemetry. Discussed with POA concerned that this may be progression of vascular dementia. At this time we will continue treating other medical causes, infection, will start on TPN support while assessing for possible poor airway protection/aspiration. POA would like to be certain that infection and other causes potentially causing encephalopathy are treated prior to additional goals of care discussion. We will continue to revisit. Oxygenation has been improving. Leukocytosis trending down. Hypernatremia resolved. Fecal impaction resolved. Septic shock resolved. Reportedly more alert, but is not communicating or following any commands. -unable to place NGT appropriately due to hiatal hernia -ammonia; TSH wnl -has underlying dementia; alert and oriented x 2 at baseline Status: Acute Qualifiers: Altered mental status type: coma Coma depth: [place] coma 9-12 Coma timing: in the field (EMT or ambulance) Qualified Code(s): R40.2421 - [place] coma scale score 9-12, in the field [EMT or ambulance] (3) Acute respiratory failure with hypoxia: This appears to have significantly improved, stabilized with requiring eit her lower rate nasal cannula oxygen or room air. Sepsis improving. Leukocytosis trending down. MRSA negative by PCR. Vancomycin was discontinued. Continue Zosyn for now due to concern for aspiration, possibly inadequate airway protection. Speech therapy assessment. Recheck CBC. -evidence of interstitial disease on CT -continue to monitor respiratory status -rapid COVID test negative, PCR positive -supplemental oxygen as needed -on broad spectrum IV antibiotics; noted significant leukocytosis, pro- calcitonin elevation, lactic acidosis; lactic acidosis has resolved -blood cx: prelim negative. Bacterial urine antigen including Legionella negative. Status: Acute (4) Metabolic acidosis: -AG closed, improving metabolic acidosis Status: Acute (5) COVID-19: -Known COVID-19 infection approximately 2 weeks ago now with acute decompensation. Rapid testing negative, PCR positive -Isolation precautions Hypoxia resolved. -CT chest with noted groundglass interstitial lung disease currently involving the right upper and right lower lobes -on dexamethasone, pulmonary toilet, unable to do breathing treatments because of mental status -no PO meds as unable to place NGT successfully despite multiple attempts -negative influenza, MRSA, bacterial antigens, Legionella Status: Acute (6) Lactic acidosis: -likely secondary to infection Status: Acute (7) Acute hypernatremia: -Now normalized. Status: Resolved (8) Acute kidney injury: -secondary to dehydration -continue to monitor renal function -avoid nephrotoxins, renally dose meds -ACEI on hold Status: Acute (9) Elevated troponin: -noted elevated troponins in setting of acute renal impairment -telemetry monitoring -continue to monitor vital signs -Echo: EF=77%, moderate to severe LVH, G1DD Status: Acute Additional A&P Information -elevated D-dimer in setting of renal impairment, COVID-19 infection, cont prophylactic lovenox -hemoconcentration likely secondary to dehydration; trend CBC. Baseline Hg is around 10 -hx of obstructive pyelonephritis secondary to L proximal ureteral stone s/p L ureteral stent placement (08/2019) -Hypothyroidism; PO meds on hold -fecal impaction resolved; multiple episodes of loose stool, rectal tube in place; check C. difficile. -at least moderate protein calorie malnutrition; BMI-16 kg/m2; NPO currently due to mental status -Chronic constipation -HTN; hypotensive currently; received dose of albumin, NS bolus with improved BP -Chronic back pain -hx of AAA -Transaminitis as above -Rhabdomyolysis, recheck CK -GI ppx with famotidine -DVT ppx with lovenox -NPO due to mental status -Dispo: return to [facility] -Code status: DNR/DNI; ok with ICU admission, pressor support. YANICK Barcenas. Attestations Medical Necessity Statement*: Continue admission for assessment and management of acute encephalopathy, improving sepsis, resolving respiratory failure after COVID-19 infection. Coding Level of Care Code Acute Soundscriber Mechanic for [facility] Diagnoses Sepsis A41.9; R65.21; J96.01 Sepsis type: sepsis due to unspecified organism Sepsis acute organ dysfunction status: with acute organ dysfunction Severe sepsis acute organ dysfunction type: acute respiratory failure Acute respiratory failure type: with hypoxia Severe sepsis shock status: with septic shock Altered mental status R40.2421 Altered mental status type: coma Coma depth: [place] coma 9-12 Coma timing: in the field (EMT or ambulance) Acute respiratory failure with hypoxia J96.01 Metabolic acidosis E87.2 COVID-19 U07.1 Lactic acidosis E87.2 Acute hypernatremia E87.0 Acute kidney injury N17.9 Elevated troponin R77.8
[2020-07-02] MEDS: aspirin 300 mg Supp PR (21:37)
[2020-07-02] MEDS: AA-Dex 5%-20% w/Lytes 1,000 ML 20 ML IV (21:38)
[2020-07-03] VITALS (10 sets, daily range): BP systolic 110–173; BP diastolic 65–89; PULSE 57–93; RESP 16–20; TEMP 36.4–37.2; O2SAT 94–99
[2020-07-03] MEDS: famotidine 20 mg/2 mL INJ IVP ×2 (01:07→12:10)
[2020-07-03] MEDS: morphine 4 mg/mL SDV 1 mL 1 MG IVP ×2 (01:08→15:02)
[2020-07-03 02:04] LABS: Glucose Point of Care 190 mg/dL (70-110)
[2020-07-03 03:42] LABS: Basophils % 0.4 %; Eosinophils # 0.1 10^3/uL (0.0-0.8); Eosinophils % 0.6 %; Hematocrit 29.3 % (37.0-47.0); Hemoglobin 9.5 g/dL (11.5-15.3); Lymphocytes # 0.9 10^3/uL (0.8-4.8); Lymphocytes % 8.1 %; Mean Corpuscular HGB Conc 32.4 g/dL (30.0-36.0); Mean Corpuscular Hemoglobin 28.8 pg (28.0-34.0); Mean Corpuscular Volume 88.8 fL (81-99); Monocytes # 0.8 10^3/uL (0.2-0.9); Monocytes % 7.7 %; Neutrophils # 8.37 10^3/uL (1.8-7.7); Neutrophils % 77.4 %; Nucleated Red Blood Cells % 0 %; Platelet Count 168 10^3/cmm (130-400); Red Cell Distribution Width 13.5 % (12.1-15.1); White Blood Count 10.8 10^3/uL (4.0-10.0)
[2020-07-03 04:11] LABS: Alanine Aminotransferase 112 U/L (0-33); Albumin Level 2.5 g/dL (3.5-5.2); Alkaline Phosphatase 104 IU/L (35-105); Anion Gap 10.2 (5-19); Aspartate Amino Transferase 78 U/L (0-32); Blood Urea Nitrogen 21 mg/dL (8-23); Calcium 7.5 mg/dL (8.5-10.5); Carbon Dioxide 22 mmol/L (22-29); Chloride 106 mmol/L (98-107); Globulin 1.9 g/dL (1.3-4.6); Glucose 173 mg/dL (65-115); Osmolality Calculated 287 mOsm/kg (285-295); Potassium 3.2 mmol/L (3.5-5.1); Sodium 135 mmol/L (136-145); Total Bilirubin 0.3 mg/dL (0.15-1.2); Total Protein 4.4 g/dL (6.6-8.7)
[2020-07-03 04:13] LABS: Creatine Phosphokinase 166 U/L (26-192); Thyroid Stimulating Hormone 1.61 uIU/mL (0.27-4.20)
[2020-07-03 04:18] LABS: Slide Review Slide Review Perform
[2020-07-03] MEDS: piperacillin-tazobactam 3.375 GM in sodium chloride 0.9% (plus) 50 ML IV ×3 (06:22→23:46)
[2020-07-03 06:33] LABS: Glucose Point of Care 135 mg/dL (70-110)
--- NOTE | 2020-07-03 10:57 | P.PN_ITS ---
Subjective Subjective: Interval history: She is awake, not following commands, not communicating, occasionally whimpering when spoken to loudly. Vitals/I&O/Wt Last Vital Signs Temp 98.9 F 07/03/20 08:00 Pulse 70 07/03/20 08:00 Resp 16 07/03/20 08:00 BP 112/69 07/03/20 08:00 Pulse Ox 98 07/03/20 08:00 07/02/20 07/03/20 07/03/20 22:59 06:59 14:59 Intake Total 1050 / 1200 50 / 1250 Output Total 275 / 275 450 / 725 Balance 775 / 925 -400 / 525 Weight last 48 hrs Weight 47.809 kg Physical Exam Const: COMMON NORMALS: no acute distress; negative for patient oriented x3 ORIENTATION/CONSCIOUSNESS: Yes awake and Yes confused HENMT: COMMON NORMALS: oropharynx normal Neck/C-Spine: COMMON NORMALS: no JVD Resp: COMMON NORMALS: normal respiratory effort and clear to auscultation bilaterally AUSCULTATION: clear to auscultation bilaterally Cardio: COMMON NORMALS: no JVD, regular rhythm, S1 normal heart sound present, S2 normal heart sound present and No murmurs present (Cardio) RHYTHM: regular rhythm HEART SOUNDS: S1 normal heart sound present and S2 normal heart sound present GI: COMMON NORMALS: Normal to inspection, nondistended, normoactive bowel s ounds present, Soft to palpation and non-tender PALPATION: Yes Soft to palpation Extremity: COMMON NORMALS: no joint enlargement and no pedal edema Neuro: COMMON NORMALS: moves all extremities; negative for patient oriented x3 Skin: COMMON NORMALS: no rashes or lesions noted GENERAL SKIN EXAM: no rashes or lesions noted Urinary Catheter Management^: Stone: Cath Placed During This Visit: yes Reason for Continuing Indwelling Catheter: Assist Healing of Perineal & Sacral Wounds- Incontinent Patients Urinary Catheter Date of Insertion: 06/27/20 Data : 07/03/20 03:30 07/03/20 03:30 A&P Assessment and plan (1) Sepsis: Blood pressures are good today. Leukocytosis continues to trend down, down to 10.8 today. She remains afebrile. TSH was checked and is normal. Continue antibiotic. Transaminitis noted worse today. Obtained abdominal ultrasound. Sludge noted within gallbladder. Normal CBD. No wall thickening. Normal liver. Small infrarenal AAA which is known. 3.2 x 3.3 cm. Speech therapy assessment for aspiration unsuccessful as she is not able to cooperate or follow commands. Discussed with her niece who is her power of crossbar switch adjuster, Jacki Barcenas. She was concerned whether or not she may have had a kidney stone again as she used in the past. Discussed with her results of CT abdomen pelvis which showed no nephrolithiasis, no hydronephrosis, no perinephric stranding, with incidentally noted perinephric arteriosclerosis. DDimer trending down. Continues on lovenox. Discussed with partnering concern regarding lack of improvement despite treatment of medical conditions. Discussed unfortunately given multiple prior CVA and findings on CT head with significant atrophy prognosis is unfortunately not good. She remains awake, not able to participate with therapy, unable to perform any self-care. Discussed additional considerations with regards to goals of care with continuing more aggressive care, including placement of feeding tube, as opposed to transition to emphasis on comfort, possibly hospice care, with consideration of pleasure feeds. She states has not had a chance to discuss any further with the family as she says it is still early in the morning for them. She also says could not make additional decisions without seeing the patient. Invited her to come see the patient on discussion with our nursing staff including nurse information technology program manager. Discussed with her that she would need to wear appropriate PPE as patient is currently isolated in viral unit, recently having had coronavirus, with concern that she may be infectious, although this probability is likely very low at the current time given her symptoms are overall resolved. Patient remains on room air. She expressed understanding, and is wanting to come and see her in the hospital. She states has to find a sitter for a ill sister, and so we will try today, but if not may be tomorrow. More alert compared to how she was on admission. At this time continue supportive care, antibiotics for improving sepsis. Continues with diarrhea afte r impaction resolved. Abdomen soft. No grimace. -Previously sepsis as evidenced by significant leukocytosis, hypotension, tachycardia, hypoxia, lactic acidosis, with evidence of end-organ injury (DENISE, acute encephalopathy). -Known COVID-19 infection approximately 2 weeks ago now with acute decompe nsation. Rapid testing negative, PCR positive -Isolation precautions -CT chest with noted ground-glass interstitial lung disease currently involving the right upper and right lower lobes Status: Acute Qualifiers: Sepsis type: sepsis due to unspecified organism Sepsis acute organ dysfunction status: with acute organ dysfunction Severe sepsis acute organ dysfunction type: acute respiratory failure Acute respiratory failure type: with hypoxia Severe sepsis shock status: with septic shock Qualified Code(s): A41.9 - Sepsis, unspecified organism; R65.21 - Severe sepsis with septic shock; J96.01 - Acute respiratory failure with hypoxia (2) Altered mental status: Not much improvement today. Carotid doppler with <50% stenosis bilaterally, mild atheromatous plaque of internal carotid arteries. Normal vertebrals. Continue treatment of pneumonia as above. Unable to participate with ST. Recheck TSH normal. BP good today. Repeat CT scan showing moderate encephalomalacia, parenchymal volume loss. Discussed with her power of crossbar switch adjuster. Appears to also show stable infarcts in left frontal lobe, parietal occipital lobes. Timing of the CVA is unclear. Discussed that we cannot exclude that may not have had some prior strokes in addition to the old ones. Aspirin [place]. Unfortunately not take anything by mouth currently. Her blood pressures have been at goal. A1c was 5.5 on 06/27. Echocardiogram was done showing 77% ejection fraction, grade 1 diastolic dysfunction. Severe calcification of the valves, but no significant stenosis or regurgitation. Once able to tolerate oral intake start on statin. Monitor on telemetry. Discussed with POA concerned that this appears to be progression of vascular dementia. Continue discussions of goals of care. Continue treatment of pneumonia which appears to be resolving. Patient is doing well on room air. Nutritional support. Oxygenation has been improving. Leukocytosis trending down. Hypernatremia resolved. Fecal impaction resolved. Septic shock resolved. Reportedly more alert, but is not communicating or following any commands. -unable to place NGT appropriately due to hiatal hernia -ammonia; TSH wnl -has underlying dementia; alert and oriented x 2 previously Status: Acute Qualifiers: Altered mental status type: coma Coma depth: [place] coma 9-12 Coma timing: in the field (EMT or ambulance) Qualified Code(s): R40.2421 - Jonna coma scale score 9-12, in the field [EMT or ambulance] (3) Acute respiratory failure with hypoxia: This appears to be resolving, stabilized with requiring either lower rate nasal cannula oxygen or room air. Sepsis improving. Leukocytosis resolving. MRSA negative by PCR. Vancomycin was discontinued. Continue Zosyn for now due to concern for aspiration, possibly inadequate airway protection. Speech therapy assessment unfortunately unsuccessful. Oxygen as needed. So far doing well normal. -evidence of interstitial disease on CT -continue to monitor respiratory status -rapid COVID test negative, PCR positive -supplemental oxygen as needed -on broad spectrum IV antibiotics; noted significant leukocytosis, pro- calcitonin elevation, lactic acidosis; lactic acidosis has resolved -blood cx: negative. Bacterial urine antigen including Legionella negative. Status: Acute (4) Metabolic acidosis: -AG closed, improving metabolic acidosis Status: Acute (5) COVID-19: -Known COVID-19 infection approximately 2 weeks ago now with acute decompensation. Rapid testing negative, PCR positive -Isolation precautions Hypoxia resolved. Discontinue dexamethasone. -CT chest with noted groundglass interstitial lung disease currently involving the right upper and right lower lobes -pulmonary toilet, unable to do breathing treatments because of mental status -no PO meds as unable to place NGT successfully despite multiple attempts -negative influenza, MRSA, bacterial antigens, Legionella Status: Acute (6) Lactic acidosis: -likely secondary to infection Status: Acute (7) Acute hypernatremia: -Now normalized. Status: Resolved (8) Acute kidney injury: -secondary to dehydration -continue to monitor renal function -avoid nephrotoxins, renally dose meds -ACEI on hold Status: Acute (9) Elevated troponin: -noted elevated troponins in setting of acute renal impairment -telemetry monitoring -continue to monitor vital signs -Echo: EF=77%, moderate to severe LVH, G1DD Status: Acute Additional A&P Information -elevated D-dimer in setting of renal impairment, COVID-19 infection, cont prophylactic lovenox -hemoconcentration likely secondary to dehydration; trend CBC. Baseline Hg is around 10 -hx of obstructive pyelonephritis secondary to L proximal ureteral stone s/p L ureteral stent placement (08/2019) -Hypothyroidism; PO meds on hold -fecal impaction resolved; multiple episodes of loose stool, rectal tube in place; check C. difficile. -at least moderate protein calorie malnutrition; BMI-16 kg/m2; NPO currently due to mental status -Chronic constipation -HTN; hypotensive currently; received dose of albumin, NS bolus with improved BP -Chronic back pain -hx of AAA -Transaminitis as above -Rhabdomyolysis, recheck CK normal -GI ppx with famotidine -DVT ppx with lovenox -NPO due to mental status -Dispo: return to [facility] -Code status: DNR/DNI; ok with ICU admission, pressor support. YANICK Barcenas. Attestations Medical Necessity Statement*: Continue admission for assessment management of pneumonia, COVID-19 infection, acute encephalopathy versus progression of dementia, possible acute on chronic CVA, goals of care discussions. Coding Level of Care Code Acute Call Center Team Leader for [facility] Fwd Diagnoses Sepsis A41.9; R65.21; J96.01 Sepsis type: sepsis due to unspecified organism Sepsis acute organ dysfunction status: with acute organ dysfunction Severe sepsis acute organ dysfunction type: acute respiratory failure Acute respiratory failure type: with hypoxia Severe sepsis shock status: with septic shock Altered mental status R40.2421 Altered mental status type: coma Coma depth: [place] coma 9-12 Coma timing: in the field (EMT or ambulance) Acute respiratory failure with hypoxia J96.01 Metabolic acidosis E87.2 COVID-19 U07.1 Lactic acidosis E87.2 Acute hypernatremia E87.0 Acute kidney injury N17.9 Elevated troponin R77.8
--- NOTE | 2020-07-03 11:04 | PC.SOCIAL ---
IMM Updated Updated pt's family member Jacki, via phone Pg 2 IMM. No questions voiced. Signed, dated, & timed copy in chart.
[2020-07-03] MEDS: enoxaparin 40 mg/0.4 mL Syringe SUBCUT (11:57)
[2020-07-03] MEDS: potassium chloride premix 100 ML 50 MEQ IV (11:57)
[2020-07-03 15:03] LABS: Glucose Point of Care 225 mg/dL (70-110)
--- NOTE | 2020-07-03 15:48 | PC.SLP ---
CONSULTING MARINE ENGINEER discussed with the pt's nurse. Pt still not alert enough to participate in evaluation. CONSULTING MARINE ENGINEER will follow-up with the pt when he is able.
[2020-07-03] MEDS: dextrose 5%-sod chloride 0.45% 1,000 ML 50 ML IV (17:06)
[2020-07-03 20:41] LABS: Glucose Point of Care 166 mg/dL (70-110)
[2020-07-03] MEDS: AA-Dex 5%-20% w/Lytes 1,000 ML 20 ML IV (21:01)
[2020-07-03] MEDS: aspirin 300 mg Supp PR (21:28)
[2020-07-04] VITALS (9 sets, daily range): BP systolic 99–156; BP diastolic 64–83; PULSE 70–94; RESP 16–20; TEMP 36.5–37.1; O2SAT 97–99
[2020-07-04 00:23] LABS: Glucose Point of Care 98 mg/dL (70-110)
[2020-07-04 02:46] LABS: Glucose Point of Care 117 mg/dL (70-110)
[2020-07-04] MEDS: famotidine 20 mg/2 mL INJ IVP ×2 (02:47→13:26)
[2020-07-04 04:42] LABS: Basophils % 0.4 %; Eosinophils # 0.2 10^3/uL (0.0-0.8); Hemoglobin 8.9 g/dL (11.5-15.3); Lymphocytes # 1.2 10^3/uL (0.8-4.8); Lymphocytes % 11.2 %; Mean Corpuscular HGB Conc 31.8 g/dL (30.0-36.0); Mean Corpuscular Hemoglobin 29.3 pg (28.0-34.0); Mean Corpuscular Volume 92.1 fL (81-99); Monocytes % 9.7 %; Neutrophils # 7.36 10^3/uL (1.8-7.7); Nucleated Red Blood Cells % 0 %; Platelet Count 206 10^3/cmm (130-400); Red Blood Count 3.04 10^6/uL (4.1-5.3); White Blood Count 10.7 10^3/uL (4.0-10.0)
--- NOTE | 2020-07-04 05:52 | PC.NURSE ---
Pt was moaning out and replied yes to being in pain. Obtained a new order for morphine 1mg IVP Q6H PRN. Administered one time during my shift. Pt now resting comfortably in bed. Will continue to monitor.
[2020-07-04 06:31] LABS: Glucose Point of Care 110 mg/dL (70-110)
[2020-07-04] MEDS: piperacillin-tazobactam 3.375 GM in sodium chloride 0.9% (plus) 50 ML IV ×3 (06:55→22:33)
[2020-07-04 07:33] LABS: Alanine Aminotransferase 106 U/L (0-33); Albumin Level 2.3 g/dL (3.5-5.2); Alkaline Phosphatase 96 IU/L (35-105); Anion Gap 11.2 (5-19); Aspartate Amino Transferase 58 U/L (0-32); Blood Urea Nitrogen 19 mg/dL (8-23); Calcium 7.6 mg/dL (8.5-10.5); Carbon Dioxide 20 mmol/L (22-29); Chloride 108 mmol/L (98-107); Globulin 2.1 g/dL (1.3-4.6); Glucose 151 mg/dL (65-115); Osmolality Calculated 287 mOsm/kg (285-295); Potassium 3.2 mmol/L (3.5-5.1); Sodium 136 mmol/L (136-145); Total Bilirubin 0.2 mg/dL (0.15-1.2); Total Protein 4.4 g/dL (6.6-8.7)
--- NOTE | 2020-07-04 08:00 | PC.NURSE ---
Patient's pressure injury to coccyx noted at stage 2, healing nicely compared to previous nurse reports, very small almost pinpoint in size, will continue q2 hour turns with pillows added for comfort, rectal tube and rivera in place to assist with healing.
[2020-07-04 08:28] LABS: Slide Review Slide Review Perform
[2020-07-04] MEDS: morphine 4 mg/mL SDV 1 mL 1 MG IVP ×3 (10:05→17:20)
--- NOTE | 2020-07-04 10:05 | PC.NURSE ---
Patient moaning and guarded from this nurse's touch, PRN Morphine given per doctors orders, see MAR for further details, patient's niece is in room with this nurse and ROMERO Hahn. Physician is awaiting family decision of comfort care vs. feeding tube, patient's POA did not come to this conclusion while in to room. Physician aware.
--- NOTE | 2020-07-04 11:43 | PC.NURSE ---
With approval from Dr. Lindsay, a visitor was allowed for a short period this morning with the patient. I had an extensive conversation with Kayode Barcenas, the designated contact and family member regarding her risks of visiting a patient that is COVID-19 positive. She verbalizes understanding and agrees that she has been provided the risks of visiting with the patient. Cornelio Reed RN and I assisted Jacki in donning the proper PPE and remained with her and the patient during her short visit of around 40 minutes. After her visit was complete, I assisted her in doffing her PPE correctly and throwing them away as well as performing proper hand hygiene. She denies any further concerns at this time and states she will speak with Dr. Lindsay later regarding the patient's status.
[2020-07-04] MEDS: enoxaparin 40 mg/0.4 mL Syringe SUBCUT (11:45)
[2020-07-04] MEDS: dextrose 5%-sod chloride 0.45% 1,000 ML 50 ML IV (13:25)
[2020-07-04 13:33] LABS: Glucose Point of Care 143 mg/dL (70-110)
--- NOTE | 2020-07-04 15:25 | PC.NURSE ---
Bed bath completed with this nurse and CARSON Sampson. repositioned using pillows for pressure relief, patient resting quietly after bath, bed alarm in place call light in reach.
--- NOTE | 2020-07-04 16:55 | P.PN_ITS ---
Subjective Subjective: Interval history: Awake, not speaking, not answering questions Vitals/I&O/Wt Last Vital Signs Temp 97.7 F 07/04/20 16:00 Pulse 70 07/04/20 16:00 Resp 18 07/04/20 16:00 BP 120/71 07/04/20 16:00 Pulse Ox 97 07/04/20 16:00 07/04/20 07/04/20 07/04/20 06:59 14:59 22:59 Intake Total 50 / 1617.081 9774 / 1050 Output Total 1000 / 1800 400 / 400 400 / 800 Balance -950 / -208.166 650 / 650 -400 / 250 Weight last 48 hrs Weight 49.952 kg Weight 47.809 kg Physical Exam Const: COMMON NORMALS: no acute distress; negative for patient oriented x3 ORIENTATION/CONSCIOUSNESS: Yes awake and Yes confused HENMT: COMMON NORMALS: oropharynx normal Neck/C-Spine: COMMON NORMALS: no JVD Resp: COMMON NORMALS: normal respiratory effort and clear to auscultation bilaterally AUSCULTATION: clear to auscultation bilaterally Cardio: COMMON NORMALS: no JVD, regular rhythm, S1 normal heart sound present, S2 normal heart sound present and No murmurs present (Cardio) RHYTHM: regular rhythm HEART SOUNDS: S1 normal heart sound present and S2 normal heart sound present GI: COMMON NORMALS: Normal to inspection, nondistended, normoactive bowel sounds present, Soft to palpation and non-tender PALPATION: Yes Soft to palpation Extremity: COMMON NORMALS: no joint enlargement and no pedal edema Neuro: COMMON NORMALS: moves all extremities; negative for patient oriented x3 Skin: COMMON NORMALS: no rashes or lesions noted GENERAL SKIN EXAM: no rashes or lesions noted Urinary Catheter Management^: Stone: Cath Placed During This Visit: yes Reason for Continuing Indwelling Catheter: Assist Healing of Perineal & Sacral W ounds- Incontinent Patients Urinary Catheter Date of Insertion: 06/27/20 Data : 07/04/20 03:45 07/04/20 06:23 A&P Assessment and plan (1) Altered mental status: She has not improved. I have discussed with power of business attorney regarding her condition yesterday. She had wanted to come see patient in the hospital, and after discussion of risks and benefits of exposure to coronavirus, we had arranged for Ms. Jacki Barcenas to visit today. We have been discussing regarding further goals of care, as unfortunately it appears that patient most likely has had progression of vascular dementia. She remains awake, noncommunicative, not following commands, requiring total assistance. Unfortunately despite continued improvement in medical conditions of sepsis, COVID-19 pneumonia, resolution of any hypoxia, continued improvement in liver function, parenteral nutrition support, she has not made any progress and there has been no further improvement in her mental status. At this point if further nutritional support would be considered by feeding tube, arrangements would be made in case these would be wishes of the patient or family. Alternatively as discussed with patient's POA consideration of transition to comfort care would be a reasonable path given her overall condition and quality of life. I attempted to reach the power of business attorney to further discuss after her visit today, however, there was no answer, and voicemail is not set up. She was intending to further discuss goals of care with patient's daughter and angelitoister, however, I am not sure whether she had done so. Care coordination to continue additional discussion and assist power of business attorney with any questio ns regarding disposition options and facilitate discussion among the family as needed. She is still unable to participate with speech therapy. She remains with very good saturations on room air. No noted respiratory symptoms. Carotid doppler with <50% stenosis bilaterally, mild atheromatous plaque of internal carotid arteries. Normal vertebrals. Recheck TSH normal. BP good today. Repeat CT scan showing moderate encephalomalacia, parenchymal volume loss. Discussed with her power of business attorney. Appears to also show stable infarcts in left frontal lobe, parietal occipital lobes. Timing of the CVA is unclear. Discussed that we cannot exclude that may not have had some prior strokes in addition to the old ones. Aspirin [place]. Unfortunately cannot take anything by mouth currently. Her blood pressures have been at goal. A1c was 5.5 on 06/27. Echocardiogram was done showing 77% ejection fraction, grade 1 diastolic dysfunction. Severe calcification of the valves, but no significant stenosis or regurgitation. Once able to tolerate oral intake start on statin. Monitor on telemetry. Nutritional support. Leukocytosis trending down. Hypernatremia resolved. Fecal impaction resolved. Septic shock resolved. Reportedly more alert compared to admit, but is not communicating or following any commands. -unable to place NGT appropriately due to hiatal hernia -ammonia; TSH wnl -has underlying dementia; alert and oriented x 2 previously. Status: Acute Qualifiers: Altered mental status type: coma Coma depth: [place] coma 9-12 Coma timing: in the field (EMT or ambulance) Qualified Code(s): R40.2421 - [place]onna coma scale score 9-12, in the field [EMT or ambulance] (2) Sepsis: This is resolved. Continuing on IV antibiotics as is not able to tolerate anything by mouth. Pending additional goals of care discussion. Blood pressures are good. Leukocytosis continues to trend down. She remains afebrile. Transaminitis improving. Obtained abdominal ultrasound. Sludge noted within gallbladder. Normal CBD. No wall thickening. Normal liver. Small infrarenal AAA which is known. 3.2 x 3.3 cm. Speech therapy assessment for aspiration unsuccessful as she is not able to cooperate or follow commands. This was discussed with her niece who is her power of business attorney, Jacki Barcenas. She was concerned whether or not she may have had a kidney stone again as she used in the past. Discussed with her results of CT abdomen pelvis which showed no nephrolithiasis, no hydronephrosis, no perinephric stranding, with incidentally noted perinephric arteriosclerosis. DDimer trending down. Continues on lovenox. Continues with diarrhea after impaction resolved. C. difficile negative. Abdomen soft. No grimace. -Previously sepsis as evidenced by significant leukocytosis, hypotension, tachycardia, hypoxia, lactic acidosis, with evidence of end-organ injury (DENISE, acute encephalopathy). This is resolved. -Known COVID-19 infection -Isolation precautions -CT chest with noted ground-glass interstitial lung disease currently involving the right upper and right lower lobes Status: Acute Qualifiers: Acute respiratory failure type: with hypoxia Sepsis acute organ dysfunction status: with acute organ dysfunction Sepsis type: sepsis due to unspecified organism Severe sepsis acute organ dysfunction type: acute respira tory failure Severe sepsis shock status: with septic shock Qualified Code(s): A41.9 - Sepsis, unspecified organism; R65.21 - Severe sepsis with septic shock; J96.01 - Acute respiratory failure with hypoxia (3) Acute respiratory failure with hypoxia: Resolved. Status: Acute (4) Metabolic acidosis: -AG closed, improved metabolic acidosis Status: Acute (5) COVID-19: -Known COVID-19 infection approximately 2 weeks ago now with acute decompensation. Rapid testing negative, PCR positive -Isolation precautions Hypoxia resolved. Dexamethasone stopped. -pulmonary toilet PRN, unable to do breathing treatments because of mental status -no PO meds as unable to place NGT successfully despite multiple attempts -negative influenza, MRSA, bacterial antigens, Legionella Status: Acute (6) Lactic acidosis: -likely secondary to infection Status: Acute (7) Acute hypernatremia: -Now normalized. Status: Resolved (8) Acute kidney injury: Resolved. -secondary to dehydration -continue to monitor renal function -avoid nephrotoxins, renally dose meds -ACEI on hold Status: Acute (9) Elevated troponin: While septic, with respiratory failure was noted to have elevated troponin. Unfortinately unable to tolerate any oral medications. ASA IL. Depending on goals of care could be evaluated further with stress test after recovery, although given overall condition and quality of life this would probably not be significantly beneficial. -telemetry monitoring -continue to monitor vital signs -Echo: EF=77%, moderate to severe LVH, G1DD Status: Acute Additional A&P Information -elevated D-dimer in setting of renal impairment, COVID-19 infection, cont prophylactic lovenox -hemoconcentration likely secondary to dehydration; trend CBC. Baseline Hg is around 10 -hx of obstructive pyelonephritis secondary to L proximal ureteral stone s/p L ureteral stent placement (08/2019). Resolved. No stone noted on CTAP as discussed w POA. -Hypothyroidism; PO meds on hold. TSH wnl. -fecal impaction resolved; multiple episodes of loose stool, rectal tube in place; negative C. difficile. -at least moderate protein calorie malnutrition; BMI-16 kg/m2; NPO currently due to mental status. TPN. -Chronic constipation -HTN; BPs at goal. -Chronic back pain -hx of AAA -Transaminitis improving. -Rhabdomyolysis resolved, recheck CK normal. -GI ppx with famotidine -DVT ppx with lovenox -NPO due to mental status -Dispo: return to [facility]. Pending additional goals of care discussion. -Code status: DNR/DNI; ok with ICU admission, pressor support. DPWANDA Barcenas. Attestations Medical Necessity Statement*: Continue admission for further determination of goals of care given lack of further significant improvement in mental status, inability to take oral nutrition or hydration or medications, requiring total assistance. Coding Level of Care Code Acute Director Of Consumer Affairs for g Fwd Exam Comprehensive Diagnoses Altered mental status R40.2424 Altered mental status type: coma Coma depth: [place]onna coma 9-12 Coma timing: in the field (EMT or ambulance) Sepsis A41.9; R65.21; J96.01 Acute respiratory failure type: with hypoxia Sepsis acute organ dysfunction status: with acute organ dysfunction Sepsis type: sepsis due to unspecified organism Severe sepsis acute organ dysfunction type: acute respiratory failure Severe sepsis shock status: with septic shock Acute respiratory failure with hypoxia J96.01 Metabolic acidosis E87.2 COVID-19 U07.1 Lactic acidosis E87.2 Acute hypernatremia E87.0 Acute kidney injury N17.9 Elevated troponin R77.8
[2020-07-04 16:57] LABS: Glucose Point of Care 110 mg/dL (70-110)
--- NOTE | 2020-07-04 19:03 | PC.NURSE ---
Report given to Raudel oncoming nurse, relinquished care of patient.
[2020-07-04] MEDS: aspirin 300 mg Supp PR (20:37)
[2020-07-04 21:39] LABS: Glucose Point of Care 135 mg/dL (70-110)
[2020-07-04] MEDS: AA-Dex 5%-20% w/Lytes 1,000 ML 42 ML IV (23:33)
[2020-07-05] MEDS: famotidine 20 mg/2 mL INJ IVP ×2 (00:07→12:10)
[2020-07-05 01:03] LABS: Glucose Point of Care 96 mg/dL (70-110)
[2020-07-05 03:58] VITALS: BP 145/86; PULSE 87; RESP 18; TEMP 36.8; O2SAT 99
[2020-07-05 05:15] LABS: Basophils % 0.2 %; Eosinophils # 0.4 10^3/uL (0.0-0.8); Eosinophils % 2.9 %; Hematocrit 25.9 % (37.0-47.0); Hemoglobin 8.4 g/dL (11.5-15.3); Lymphocytes % 7.4 %; Mean Corpuscular HGB Conc 32.4 g/dL (30.0-36.0); Mean Corpuscular Hemoglobin 29.3 pg (28.0-34.0); Mean Corpuscular Volume 90.2 fL (81-99); Mean Platelet Volume 10.4 fL (7.4-10.4); Monocytes # 0.9 10^3/uL (0.2-0.9); Monocytes % 6.7 %; Neutrophils # 10.09 10^3/uL (1.8-7.7); Neutrophils % 78.4 %; Nucleated Red Blood Cells % 0 %; Platelet Count 228 10^3/cmm (130-400); Red Blood Count 2.87 10^6/uL (4.1-5.3); Red Cell Distribution Width 14.1 % (12.1-15.1); White Blood Count 12.9 10^3/uL (4.0-10.0)
[2020-07-05 05:40] LABS: Alanine Aminotransferase 96 U/L (0-33); Albumin Level 2.2 g/dL (3.5-5.2); Alkaline Phosphatase 114 IU/L (35-105); Anion Gap 11.1 (5-19); Aspartate Amino Transferase 59 U/L (0-32); Blood Urea Nitrogen 20 mg/dL (8-23); Calcium 7.4 mg/dL (8.5-10.5); Carbon Dioxide 23 mmol/L (22-29); Chloride 104 mmol/L (98-107); Globulin 2.2 g/dL (1.3-4.6); Glucose 120 mg/dL (65-115); Osmolality Calculated 284 mOsm/kg (285-295); Potassium 3.1 mmol/L (3.5-5.1); Sodium 135 mmol/L (136-145); Total Bilirubin 0.3 mg/dL (0.15-1.2); Total Protein 4.4 g/dL (6.6-8.7)
[2020-07-05] MEDS: piperacillin-tazobactam 3.375 GM in sodium chloride 0.9% (plus) 50 ML IV ×3 (06:04→23:54)
[2020-07-05] MEDS: dextrose 5%-sod chloride 0.45% 1,000 ML 50 ML IV (06:05)
[2020-07-05 07:36] LABS: Glucose Point of Care 134 mg/dL (70-110)
[2020-07-05 08:00] VITALS: BP 130/87; PULSE 92; RESP 18; TEMP 36.6; O2SAT 96
--- NOTE | 2020-07-05 08:04 | PC.NURSE ---
oral care completed on patient, moaning noted during oral care but relaxes and rests after finished, repositioned with pillows to relieve pressure, bed alarm activated, call light in reach, side rails up X2, white board updated with plan of care, unable to comprehend.
--- NOTE | 2020-07-05 10:48 | PC.NURSE ---
Complete bed bath completed by this nurse and Berta BYRD, repositioned in bed, applied barrier ointment to bottom, pillows placed to reduce pressure, patient resting now with shallow but equal rise and fall of chest, manager cardiac cath in place, bed alarm activated, call light in reach, side rails upx2.
--- NOTE | 2020-07-05 10:48 | PM.PN ---
Subjective Subjective: Interval history: She is awake, nonverbal, not following commands. Vitals/I&O/Wt Last Vital Signs Temp 97.9 F 07/05/20 08:00 Pulse 92 07/05/20 08:00 Resp 18 07/05/20 08:00 BP 130/87 07/05/20 08:00 Pulse Ox 96 07/05/20 08:00 07/04/20 07/05/20 07/05/20 22:59 06:59 14:59 Intake Total 50 / 1100 1414.000 / 2514.000 Output Total 500 / 900 880 / 1780 100 / 100 Balance -450 / 200 534.000 / 734.000 -100 / -100 Weight last 48 hrs Weight 50.394 kg Weight 49.952 kg Physical Exam Const: COMMON NORMALS: no acute distress; negative for patient oriented x3 ORIENTATION/CONSCIOUSNESS: Yes awake and Yes confused HENMT: COMMON NORMALS: oropharynx normal Neck/C-Spine: COMMON NORMALS: no JVD Resp: COMMON NORMALS: normal respiratory effort and clear to auscultation bilaterally AUSCULTATION: clear to auscultation bilaterally OTHER: Somewhat shallow breaths. Cardio: COMMON NORMALS: no JVD, regular rhythm, S1 normal heart sound present, S2 normal heart sound present and No murmurs present (Cardio) RHYTHM: regular rhythm HEART SOUNDS: S1 normal heart sound present and S2 normal heart sound present GI: COMMON NORMALS: Normal to inspection, nondistended, normoactive bowel sounds present, Soft to palpation and non-tender PALPATION: Yes Soft to palpation Extremity: COMMON NORMALS: no joint enlargement and no pedal edema Neuro: COMMON NORMALS: moves all extremities; negative for patient oriented x3 Skin: COMMON NORMALS: no rashes or lesions noted GENERAL SKIN EXAM: no rashes or lesions noted Urinary Catheter Management^: Stone: Cath Placed During This Visit: yes Reason for Continuing Indwelling Catheter: Assist Healing of Perineal & Sacral Wounds- Incontinent Patients Urinary Catheter Date of Insertion: 06/27/20 Data : 07/05/20 04:20 07/05/20 04:20 A&P Assessment and plan (1) Altered mental status: Noncommunicable. Not following commands. Unable to eat or perform any ADLs. Suspect unfortunately this is likely progression of vascular dementia. No evidence to suggest delirium with waxing waning symptoms. Mental status continues unchanged. Unable to eat. Unfortunately likely aspirating, with worsening leukocytosis. Today requiring a bit of oxygen. Shallow breaths. Unable to work with speech therapy. Attempted to again reach power of inspector open die, but phone going straight to voicemail which is not set up. Discussed with case coordination. Unfortunately despite continued improvement in medical conditions of sepsis, COVID-19 pneumonia, resolution of any hypoxia after initial episode, continued improvement in liver function, parenteral nutrition support, she has not made any progress and there has been no further improvement in her mental status. At this point if further nutritional support would be considered by feeding tube, arrangements would be made in case these would be wishes of the patient or family. Perhaps consideration of tracheostomy. Alternatively consideration of transition to comfort care would be a reasonable path given her overall condition and quality of life. Carotid doppler with <50% stenosis bilaterally, mild atheromatous plaque of internal carotid arteries. Normal vertebrals. Recheck TSH normal. BP is good. Repeat CT scan showing moderate encephalomalacia, parenchymal volume loss. Discussed with her power of inspector open die. Appears to also show stable infarcts in left frontal lobe, parietal occipital lobes. Timing of the CVA is unclear. Discussed that we cannot exclude that may not have had some prior strokes in addition to the old ones. Aspirin [place]. Unfortunately cannot take anything by mouth currently. Her blood pressures have been at goal. A1c was 5.5 on 06/27. Echocardiogram was done showing 77% ejection fraction, grade 1 diastolic dysfunction. Severe calcification of the valves, but no significant stenosis or regurgitation. Once able to tolerate oral intake start on statin. Monitor on telemetry. Nutritional support. Leukocytosis trending down. Hypernatremia resolved. Fecal impaction resolved. Septic shock resolved. -unable to place NGT appropriately due to hiatal hernia -ammonia wnl -has underlying dementia; alert and oriented x 2 previously. Status: Acute Qualifiers: Altered mental status type: coma Coma depth: [place] coma 9-12 Coma timing: in the field (EMT or ambulance) Qualified Code(s): R40.2421 - [place] coma scale score 9-12, in the field [EMT or ambulance] (2) Sepsis: Leukocytosis worse today. He is requiring some oxygen. Shallow respirations. Suspected unfortunately that she is aspirating. Unable to work with speech therapy. Continue Zosyn IV at this time. Pending additional discussion regarding further goals of care. Blood pressures are good. She remains afebrile. Transaminitis improving. Obtained abdominal ultrasound. Sludge noted within gallbladder. Normal CBD. No wall thickening. Normal liver. Small infrarenal AAA which is known. 3.2 x 3.3 cm. Speech therapy assessment for aspiration unsuccessful as she is not able to cooperate or follow commands. This was discussed with her niece who is her power of inspector open die, Jacki Barcenas. She was concerned whether or not she may have had a kidney stone again as she used in the past. Discussed with her results of CT abdomen pelvis which showed no nephrolithiasis, no hydronephrosis, no perinephric stranding, with incidentally noted perinephric arteriosclerosis. DDimer trending down. Continues on lovenox. Continues with diarrhea after impaction resolved. C. difficile negative. Abdomen soft. No grimace. Add stool studies. -Previously sepsis as evidenced by significant leukocytosis, hypotension, tachycardia, hypoxia, lactic acidosis, with evidence of end-organ injury (DENISE, acute encephalopathy). This is resolved. -Known COVID-19 infection -Isolation precautions -CT chest on admit with noted ground-glass interstitial lung disease right upper and right lower lobes Status: Acute Qualifiers: Sepsis type: sepsis due to unspecified organism Sepsis acute organ dysfunction status: with acute organ dysfunction Severe sepsis acute organ dysfunction type: acute respiratory failure Acute respiratory failure type: with hypoxia Severe sepsis shock status: with septic shock Qualified Code(s): A41.9 - Sepsis, unspecified organism; R65.21 - Severe sepsis with septic shock; J96.01 - Acute respiratory failure with hypoxia (3) Acute respiratory failure with hypoxia: Resolved. Status: Acute (4) Metabolic acidosis: -AG closed, improved metabolic acidosis Status: Acute (5) COVID-19: -Known COVID-19 infection approximately 2 weeks ago initially hospitalized here with acute decompensation. This had since improved. Was weaned to RA until now suspected with aspiration. Rapid testing negative, PCR positive -Isolation precautions Hypoxia resolved. Dexamethasone stopped. -pulmonary toilet PRN, unable to do breathing treatments because of mental status -no PO meds as unable to place NGT successfully despite multiple attempts -negative influenza, MRSA, bacterial antigens, Legionella Status: Acute (6) Lactic acidosis: -likely secondary to infection Status: Acute (7) Acute hypernatremia: -Normalized. Status: Resolved (8) Acute kidney injury: Resolved. -secondary to dehydration -continue to monitor renal function -avoid nephrotoxins, renally dose meds -ACEI on hold Status: Acute (9) Elevated troponin: While septic, with respiratory failure was noted to have elevated troponin. Unfortinately unable to tolerate any oral medications. ASA AL. Depending on goals of care could be evaluated further with stress test after recovery, although given overall condition and quality of life this would probably not be significantly beneficial. -telemetry monitoring -continue to monitor vital signs -Echo: EF=77%, moderate to severe LVH, G1DD Status: Acute Additional A&P Information -elevated D-dimer in setting of renal impairment, COVID-19 infection, cont prophylactic lovenox -hemoconcentration likely secondary to dehydration; trend CBC. Baseline Hg is around 10 -hx of obstructive pyelonephritis secondary to L proximal ureteral stone s/p L ureteral stent placement (08/2019). Resolved. No stone noted on CTAP as discussed w POA. -Hypothyroidism; PO meds on hold. TSH wnl. -fecal impaction resolved; multiple episodes of loose stool, rectal tube in place; negative C. difficile. -at least moderate protein calorie malnutrition; BMI-16 kg/m2; NPO currently due to mental status. TPN. -Chronic constipation -HTN; BPs at goal. -Chronic back pain -hx of AAA -Transaminitis improving. -Rhabdomyolysis resolved, recheck CK normal. -GI ppx with famotidine -DVT ppx with lovenox -NPO due to mental status -Dispo: return to [facility]. Pending additional goals of care discussion. -Code status: DNR/DNI; ok with ICU admission, pressor support. YANICK Barcenas. Attestations Medical Necessity Statement*: Continue admission pending additional discussion of goals of care, proceeding according to family wishes, may require nutritional support by PEG tube, possible tracheostomy, if wanting to continue more aggressive care, continue treatment of aspiration pneumonia in the meantime, and patient with chronic mild dementia, and now worsening mental status, encephalopathy. Coding Level of Care Code Acute Abnormal Psychology Teacher for Tamiag Fwd Diagnoses Altered mental status R40.2905 Altered mental status type: coma Coma depth: [place] coma 9-12 Coma timing: in the field (EMT or ambulance) Sepsis A41.9; R65.21; J96.01 Sepsis type: sepsis due to unspecified organism Sepsis acute organ dysfunction status: with acute organ dysfunction Severe sepsis acute organ dysfunction type: acute respiratory failure Acute respiratory failure type: with hypoxia Severe sepsis shock status: with septic shock Acute respiratory failure with hypoxia J96.01 Metabolic acidosis E87.2 COVID-19 U07.1 Lactic acidosis E87.2 Acute hypernatremia E87.0 Acute kidney injury N17.9 Elevated troponin R77.8
--- NOTE | 2020-07-05 11:02 | PC.SOCIAL ---
IMM Not Given IMM not given today as we are unable to reach DPOA and patient is confused. SS will attempt to reach family later today.
[2020-07-05] MEDS: potassium chloride premix 100 ML 50 MEQ IV (11:18)
[2020-07-05] MEDS: enoxaparin 40 mg/0.4 mL Syringe SUBCUT (11:18)
[2020-07-05 11:47] LABS: Glucose Point of Care 135 mg/dL (70-110)
[2020-07-05 12:00] VITALS: BP 138/77; PULSE 94; RESP 20; TEMP 36.7; O2SAT 97
[2020-07-05 15:20] VITALS: BP 136/77; PULSE 74; RESP 20; TEMP 36.8; O2SAT 97
[2020-07-05 16:51] LABS: Glucose Point of Care 167 mg/dL (70-110)
--- NOTE | 2020-07-05 18:27 | PC.NURSE ---
Stool noted at 200mL on flexiseal collection bag for this shift.
[2020-07-05 20:00] VITALS: BP 110/76; PULSE 94; RESP 20; TEMP 35.8; O2SAT 97
[2020-07-05 22:52] LABS: Glucose Point of Care 131 mg/dL (70-110)
[2020-07-05] MEDS: AA-Dex 5%-20% w/Lytes 1,000 ML 42 ML IV (23:55)
[2020-07-06] VITALS: BP 123/89; PULSE 95; RESP 20; TEMP 36.3; O2SAT 97
[2020-07-06] MEDS: dextrose 5%-sod chloride 0.45% 1,000 ML 50 ML IV ×2 (01:38→22:30)
[2020-07-06] MEDS: famotidine 20 mg/2 mL INJ IVP ×2 (01:44→12:41)
[2020-07-06 03:22] LABS: Glucose Point of Care 131 mg/dL (70-110)
[2020-07-06 03:39] VITALS: BP 109/70; PULSE 91; RESP 18; TEMP 37.1; O2SAT 97
[2020-07-06] MEDS: piperacillin-tazobactam 3.375 GM in sodium chloride 0.9% (plus) 50 ML IV ×3 (06:15→22:30)
[2020-07-06 06:20] LABS: Basophils % 0.1 %; Eosinophils # 0.3 10^3/uL (0.0-0.8); Eosinophils % 2.3 %; Hematocrit 24.2 % (37.0-47.0); Hemoglobin 7.8 g/dL (11.5-15.3); Lymphocytes # 0.8 10^3/uL (0.8-4.8); Lymphocytes % 6.5 %; Mean Corpuscular HGB Conc 32.2 g/dL (30.0-36.0); Mean Corpuscular Hemoglobin 29.1 pg (28.0-34.0); Mean Corpuscular Volume 90.3 fL (81-99); Mean Platelet Volume 10.1 fL (7.4-10.4); Monocytes # 0.7 10^3/uL (0.2-0.9); Neutrophils # 9.54 10^3/uL (1.8-7.7); Nucleated Red Blood Cells % 0 %; Platelet Count 228 10^3/cmm (130-400); Red Blood Count 2.68 10^6/uL (4.1-5.3); Red Cell Distribution Width 14.2 % (12.1-15.1); White Blood Count 11.5 10^3/uL (4.0-10.0)
[2020-07-06 06:27] LABS: Glucose Point of Care 137 mg/dL (70-110)
[2020-07-06 06:41] LABS: Alanine Aminotransferase 81 U/L (0-33); Albumin Level 2.1 g/dL (3.5-5.2); Alkaline Phosphatase 121 IU/L (35-105); Anion Gap 9.1 (5-19); Aspartate Amino Transferase 43 U/L (0-32); Blood Urea Nitrogen 18 mg/dL (8-23); Calcium 7.3 mg/dL (8.5-10.5); Carbon Dioxide 24 mmol/L (22-29); Chloride 103 mmol/L (98-107); Globulin 2.1 g/dL (1.3-4.6); Glucose 127 mg/dL (65-115); Osmolality Calculated 279 mOsm/kg (285-295); Potassium 3.1 mmol/L (3.5-5.1); Sodium 133 mmol/L (136-145); Total Bilirubin 0.3 mg/dL (0.15-1.2); Total Protein 4.2 g/dL (6.6-8.7)
[2020-07-06 07:35] VITALS: BP 119/62; PULSE 90; RESP 16; TEMP 36.9; O2SAT 96
--- NOTE | 2020-07-06 09:53 | PC.NURSE ---
Optifoam dressing applied to coccyx, stage 1 pressure injury healing very well compared to previous days of having patient. will continue turn q2 hours.
[2020-07-06 11:05] LABS: Glucose Point of Care 149 mg/dL (70-110)
[2020-07-06] MEDS: enoxaparin 40 mg/0.4 mL Syringe SUBCUT (11:17)
--- NOTE | 2020-07-06 11:30 | PM.PN ---
Subjective Subjective: Interval history: She is not communicative, not following commands. Sleeping, but wakes up briefly. Vitals/I&O/Wt Last Vital Signs Temp 98.5 F 07/06/20 07:35 Pulse 90 07/06/20 07:35 Resp 16 07/06/20 07:35 BP 119/62 07/06/20 07:35 Pulse Ox 96 07/06/20 07:35 07/05/20 07/06/20 07/06/20 22:59 06:59 14:59 Intake Total 50 / 100 2027.5 / 2127.5 Output Total 200 / 600 700 / 1300 350 / 350 Balance -150 / -500 1327.5 / 827.5 -350 / -350 Weight last 48 hrs Weight 51.256 kg Weight 50.394 kg Physical Exam Const: COMMON NORMALS: no acute distress; negative for patient oriented x3 ORIENTATION/CONSCIOUSNESS: Yes awake and Yes confused HENMT: COMMON NORMALS: oropharynx normal Neck/C-Spine: COMMON NORMALS: no JVD Resp: COMMON NORMALS: normal respiratory effort and clear to auscultation bilaterally AUSCULTATION: clear to auscultation bilaterally Cardio: COMMON NORMALS: no JVD, regular rhythm, S1 normal heart sound present, S2 normal heart sound present and No murmurs present (Cardio) RHYTHM: regular rhythm HEART SOUNDS: S1 normal heart sound present and S2 normal heart sound present GI: COMMON NORMALS: Normal to inspection, nondistended, normoactive bowel sounds present, Soft to palpation and non-tender PALPATION: Yes Soft to palpation Extremity: COMMON NORMALS: no joint enlargement and no pedal edema Neuro: COMMON NORMALS: moves all extremities; negative for patient oriented x3 Skin: COMMON NORMALS: no rashes or lesions noted GENERAL SKIN EXAM: no rashes or lesions noted Urinary Catheter Management^: Stone: Cath Placed During This Visit: yes Reason for Continuing Indwelling Catheter: Assist Healing of Perineal & Sacral Wounds- Incontinent Patients Urinary Catheter Date of Insertion: 06/27/20 Data : 07/06/20 05:23 07/06/20 05:23 A&P Assessment and plan (1) Altered mental status: Discussed with surgery family request for placement of feeding tube. Will be assessed. We again discussed in detail with POA that feeding tube would not help fix he underlying issue and would be not likely to meaningfully extend her life or quality of life. We also discussed potential adverse effects including leakage, bleeding, infection, dislodgement and other. Family would still like to proceed. POA would like to take some times to think about and decide regarding tracheostomy after discussion of potential risks, benefits, alternatives, as well as options subsequently relating to disposition planning. Attempted to reach out again to POA this morning to follow-up on our discussion. No answer on the phone, no voicemail set up. Discussed with care coordination. Patient remains noncommunicable. Not following commands. Unable to eat or perform any ADLs. Suspect unfortunately this is likely progression of vascular dementia. No evidence to suggest delirium with waxing waning symptoms. Mental status continues unchanged. Unable to eat. Unfortunately likely aspirating, with worsening leukocytosis. On room air. Unfortunately despite continued improvement in medical conditions of sepsis, COVID-19 pneumonia, resolution of any hypoxia after initial episode, continued improvement in liver function, parenteral nutrition support, she has not made any progress and there has been no further improvement in her mental status. At this point if further nutritional support would be considered by feeding tube, arrangements would be made in case these would be wishes of the patient or family. Consideration of tracheostomy. Alternatively consideration of transition to comfort care would be a reasonable path given her overall condition and quality of life. Carotid doppler with <50% stenosis bilaterally, mild atheromatous plaque of internal carotid arteries. Normal vertebrals. Recheck TSH normal. BP is good. Repeat CT scan showing moderate encephalomalacia, parenchymal volume loss. Discussed with her power of waiter/waitress counter. Appears to also show stable infarcts in left frontal lobe, parietal occipital lobes. Timing of the CVA is unclear. Discussed that we cannot exclude that may not have had some prior strokes in addition to the old ones. Aspirin [place]. Unfortunately cannot take anything by mouth currently. Her blood pressures have been at goal. A1c was 5.5 on 06/27. Echocardiogram was done showing 77% ejection fraction, grade 1 diastolic dysfunction. Severe calcification of the valves, but no significant stenosis or regurgitation. Once able to tolerate oral intake start on statin. Monitor on telemetry. Nutritional support. Leukocytosis trending down. Hypernatremia resolved. Fecal impaction resolved. Septic shock resolved. -unable to place NGT appropriately due to hiatal hernia -ammonia wnl -has underlying dementia; alert and oriented x 2 previously. Status: Acute Qualifiers: Altered mental status type: coma Coma depth: [place] coma 9-12 Coma timing: in the field (EMT or ambulance) Qualified Code(s): R40.2421 - [place] coma scale score 9-12, in the field [EMT or ambulance] (2) Sepsis: Leukocytosis worse today. He is requiring some oxygen. Shallow respirations. Suspected unfortunately that she is aspirating. Unable to work with speech therapy. Continue Zosyn IV at this time. Pending additional discussion regarding further goals of care. Blood pressures are good. She remains afebrile. Transaminitis improving. Obtained abdominal ultrasound. Sludge noted within gallbladder. Normal CBD. No wall thickening. Normal liver. Small infrarenal AAA which is known. 3.2 x 3.3 cm. Speech therapy assessment for aspiration unsuccessful as she is not able to cooperate or follow commands. This was discussed with her niece who is her power of waiter/waitress counter, Jacki Barcenas. She was concerned whether or not she may have had a kidney stone again as she used in the past. Discussed with her results of CT abdomen pelvis which showed no nephrolithiasis, no hydronephrosis, no perinephric stranding, with incidentally noted perinephric arteriosclerosis. DDimer trending down. Continues on lovenox. Continues with diarrhea after impaction resolved. C. difficile negative. Abdomen soft. No grimace. Added stool studies. -Previously sepsis as evidenced by significant leukocytosis, hypotension, tachycardia, hypoxia, lactic acidosis, with evidence of end-organ injury (DENISE, acute encephalopathy). This is resolved. -Known COVID-19 infection -Isolation precautions -CT chest on admit with noted ground-glass interstitial lung disease right upper and right lower lobes Status: Acute Qualifiers: Sepsis type: sepsis due to unspecified organism Sepsis acute organ dysfunction status: with acute organ dysfunction Severe sepsis acute organ dysfunction type: acute respiratory failure Acute respiratory failure type: with hypoxia Severe sepsis shock status: with septic shock Qualified Code(s): A41.9 - Sepsis, unspecified organism; R65.21 - Severe sepsis with septic shock; J96.01 - Acute respiratory failure with hypoxia (3) Acute respiratory failure with hypoxia: Resolved. Status: Acute (4) Metabolic acidosis: -AG closed, improved metabolic acidosis Status: Acute (5) COVID-19: -Known COVID-19 infection approximately 2 weeks ago initially hospitalized here with acute decompensation. This had since improved. Was weaned to RA until now suspected with aspiration. Rapid testing negative, PCR positive -Isolation precautions Hypoxia resolved. Dexamethasone stopped. -pulmonary toilet PRN, unable to do breathing treatments because of mental status -no PO meds as unable to place NGT successfully despite multiple attempts -negative influenza, MRSA, bacterial antigens, Legionella Status: Acute (6) Lactic acidosis: -likely secondary to infection Status: Acute (7) Acute hypernatremia: -Normalized. Status: Resolved (8) Acute kidney injury: Resolved. -secondary to dehydration -continue to monitor renal function -avoid nephrotoxins, renally dose meds -ACEI on hold Status: Acute (9) Elevated troponin: While septic, with respiratory failure was noted to have elevated troponin. Unfortinately unable to tolerate any oral medications. ASA [place]. Depending on goals of care could be evaluated further with stress test after recovery, although given overall condition and quality of life this would probably not be significantly beneficial. -telemetry monitoring -continue to monitor vital signs -Echo: EF=77%, moderate to severe LVH, G1DD Status: Acute Additional A&P Information Diarrhea: added bacterial and parasite studies. C diff neg. -elevated D-dimer in setting of renal impairment, COVID-19 infection, cont prophylactic lovenox -hemoconcentration likely secondary to dehydration; trend CBC. Baseline Hg is around 10 -hx of obstructive pyelonephritis secondary to L proximal ureteral stone s/p L ureteral stent placement (08/2019). Resolved. No stone noted on CTAP as discussed w POA. -Hypothyroidism; PO meds on hold. TSH wnl. -fecal impaction resolved; multiple episodes of loose stool, rectal tube in place; negative C. difficile. -at least moderate protein calorie malnutrition; BMI-16 kg/m2; NPO currently due to mental status. TPN. -Chronic constipation -HTN; BPs at goal. -Chronic back pain -hx of AAA -Transaminitis improving. -Rhabdomyolysis resolved, recheck CK normal. -GI ppx with famotidine -DVT ppx with lovenox -NPO due to mental status. TPN -Dispo: return to [facility]. Pending additional goals of care discussion. -Code status: DNR/DNI; ok with ICU admission, pressor support. DPOA Jacki Barcenas. Attestations Medical Necessity Statement*: Continue admission for arrangements and placement of feeding tube, for discussion of goals of care, consideration of tracheostomy, disposition planning. Coding Level of Care Code Acute Rope Cutter for Chg Fwd Diagnoses Altered mental status R40.2422 Altered mental status type: coma Coma depth: [place] coma 9-12 Coma timing: in the field (EMT or ambulance) Sepsis A41.9; R65.21; J96.01 Sepsis type: sepsis due to unspecified organism Sepsis acute organ dysfunction status: with acute organ dysfunction Severe sepsis acute organ dysfunction type: acute respiratory failure Acute respiratory failure type: with hypoxia Severe sepsis shock status: with septic shock Acute respiratory failure with hypoxia J96.01 Metabolic acidosis E87.2 COVID-19 U07.1 Lactic acidosis E87.2 Acute hypernatremia E87.0 Acute kidney injury N17.9 Elevated troponin R77.8
[2020-07-06 12:00] VITALS: BP 135/77; PULSE 129; RESP 16; TEMP 37.1; O2SAT 100
[2020-07-06] MEDS: potassium chloride premix 100 ML 50 MEQ IV (12:40)
--- NOTE | 2020-07-06 14:44 | PM.CONSULT ---
Providers/Reason For Consult Consulting Physican/Specialty*: Will Lindsay Reason for Consult*: Placement of PEG tube Attending Physician: Will Lindsay Primary Care Provider: Lizeth Britton MD History of Present Illness History of Present Illness Information obtained from patient's chart as patient is not communicating Bree Hernandes is a 75 year old female recently diagnosed with COVID-19 who was admitted to the hospital with altered mental status, hyponatremia and septic shock. From a mental status patient has not made any significant improvement and recent CT scan of the head showed vascular dementia. Discussions were had with the patient's power of corporate associate attorney regarding hospice care versus feeding tube placement and they would like to proceed with placement of feeding tube Review of Systems General: Reports: ROS unobtainable due to mental status Meds/Allergies Home Medications and Allergies Home Medications Medication Instructions Recorded Confirmed Last Taken Type acetaminophen 325 mg capsule 650 mg PO Q6H PRN 09/11/19 06/26/20 06/24/20 History levothyroxine 25 mcg capsule 25 mcg PO DAILY cap 09/11/19 06/26/20 06/26/20 History lisinopril 10 mg tablet 10 mg PO DAILY tab 09/11/19 06/26/20 06/26/20 History multivitamin 1 tab PO DAILY 09/11/19 06/26/20 06/26/20 History bisacodyl [address] DAILY PRN 06/26/20 06/26/20 Unknown History magnesium hydroxide [Milk of 400 mg PO DAILY PRN 06/26/20 06/26/20 07/01/19 History Magnesia] Allergies Allergy/AdvReac Type Severity Reaction Status Date / Time procaine [From Novocain] Allergy NA Verified 09/04/19 08:17 Current Medications Current Medications Generic Name Dose Route Start Last Admin Trade Name Freq PRN Reason Stop Dose Admin Ascorbic Acid 500 mg 06/27/20 15:15 07/06/20 08:58 Vitamin C NG-TUBE Not Given DAILY CRISTOBAL Aspirin 300 mg 07/01/20 19:30 07/05/20 20:[address] Not Given Q24H CRISTOBAL Enoxaparin Sodium 40 mg 06/27/20 12:00 07/06/20 11:17 Lovenox SUBCUT 40 mg Q24H CRISTOBAL Administration Famotidine 20 mg 06/27/20 01:00 07/06/20 12:41 Pepcid Inj IVP 20 mg Q12H CRISTOBAL Administration Dextrose/Sodium Chloride 1,000 mls @ 50 mls/hr 06/28/20 17:00 07/06/20 01:38 Dextrose 5%-Sod Chloride 0.45% IV 50 mls/hr .Q20H CRISTOBAL Administration Piperacillin Sod/Tazobactam 50 mls @ 12.5 mls/hr 07/02/20 15:00 07/06/20 06:15 Sod 3.375 gm/ Sodium Chloride IV 12.5 mls/hr Q8H CRISTOBAL Administration Protocol Amino Acids/Electrolytes 1,000 mls @ 42 mls/hr 07/02/20 20:00 07/05/20 23:55 Clinimix E 5%-20% IV 42 mls/hr .[id number] CRISTOBAL Administration Protocol Insulin Aspart 0 unit 07/02/20 14:00 07/06/20 13:28 Novolog SUBCUT 4 unit Q6H CRISTOBAL Administration Protocol Lanolin 1 applic 06/27/20 18:03 06/29/20 01:22 PROFESSIONAL HOUSING CONSULTANT Lanolin Oint TOPICAL 1 applic PRN PRN Administration DRYNESS Morphine Sulfate 1 mg 07/03/20 23:50 07/04/20 17:20 Morphine IVP 1 mg Q6H PRN Administration SEVERE PAIN PFSH Acute PFSH: Medical History Calculus of left ureter Cystitis cystica History of kidney stones Obstructive pyelonephritis Urinary tract infection, site not specified Family History Family/Other Diabetes Mother No problems noted. Father No problems noted. Social History Smoking and tobacco status: unknown if ever smoked Alcohol intake: never Marital status: Current occupational status: retired Vitals/I&O/Wt Last Vital Signs Temp 98.8 F 07/06/20 12:00 Pulse 129 H 07/06/20 12:00 Resp 16 07/06/20 12:00 BP 135/77 07/06/20 12:00 Pulse Ox 100 07/06/20 12:00 07/05/20 07/06/20 07/06/20 22:59 06:59 14:59 Intake Total 50 / 2127.5 2027.5 / 2127.5 Output Total 200 / 1300 700 / 1300 800 / 800 Balance -150 / 827.5 1327.5 / 827.5 -800 / -800 Weight last 48 hrs Weight 113 lb Weight 111 lb 1.6 oz Physical Exam Narrative: EXAM NARRATIVE: HEENT: Normocephalic Eye: Sclera /conjunctiva normal Abdomen: Soft to palpation, nondistended, infraumbilical laparotomy scar Neurological: Awake, does not follow commands Skin: Intact, no lesions appreciated on gross exam Urinary Catheter Management^: Stone: Cath Placed During This Visit: yes Reason for Continuing Indwelling Catheter: Assist Healing of Perineal & Sacral Wounds- Incontinent Patients Urinary Catheter Date of Insertion: 06/27/20 A&P Assessment and plan (1) Malnutrition: 75-year-old female with altered mental status, with nasal oral intake who is currently on TPN. After discussion with POA, we will schedule her for PEG tube placement under MAC tomorrow. Patient is currently on Lovenox and IV Zosyn Status: Acute Coding Level of Care Code Acute Computer Operations Analyst for Chg Fwd Diagnoses Malnutrition E46
--- NOTE | 2020-07-06 15:14 | PC.NURSE ---
Surgical consent for feeding tube obtained from Jacki Barcenas, [facility] Power of Betting Agency Counter Clerk, over the phone with this nurse and Alice JASSO and placed in chart.
[2020-07-06 16:00] VITALS: BP 138/83; PULSE 100; RESP 16; TEMP 37.1; O2SAT 99
[2020-07-06 17:44] LABS: Glucose Point of Care 92 mg/dL (70-110)
[2020-07-06 19:57] VITALS: BP 179/90; PULSE 93; RESP 17; TEMP 36.8; O2SAT 97
[2020-07-06 20:38] LABS: Glucose Point of Care 116 mg/dL (70-110)
[2020-07-06] MEDS: AA-Dex 5%-20% w/Lytes 1,000 ML 42 ML IV (22:30)
[2020-07-06] MEDS: aspirin 300 mg Supp PR (22:35)
[2020-07-07] VITALS (9 sets, daily range): BP systolic 111–167; BP diastolic 56–97; PULSE 75–104; RESP 16–22; TEMP 36.4–37.5; O2SAT 96–100
[2020-07-07] MEDS: famotidine 20 mg/2 mL INJ IVP (01:53)
[2020-07-07 02:09] LABS: Glucose Point of Care 145 mg/dL (70-110)
[2020-07-07 05:13] LABS: Alanine Aminotransferase 62 U/L (0-33); Albumin Level 2.2 g/dL (3.5-5.2); Alkaline Phosphatase 130 IU/L (35-105); Anion Gap 10.3 (5-19); Aspartate Amino Transferase 30 U/L (0-32); Blood Urea Nitrogen 15 mg/dL (8-23); Calcium 7.4 mg/dL (8.5-10.5); Carbon Dioxide 23 mmol/L (22-29); Chloride 105 mmol/L (98-107); Globulin 2.3 g/dL (1.3-4.6); Glucose 76 mg/dL (65-115); Osmolality Calculated 280 mOsm/kg (285-295); Potassium 3.3 mmol/L (3.5-5.1); Sodium 135 mmol/L (136-145); Total Bilirubin 0.2 mg/dL (0.15-1.2); Total Protein 4.5 g/dL (6.6-8.7)
[2020-07-07] MEDS: piperacillin-tazobactam 3.375 GM in sodium chloride 0.9% (plus) 50 ML IV ×2 (06:35→22:55)
[2020-07-07 06:44] LABS: Glucose Point of Care 114 mg/dL (70-110)
[2020-07-07 07:10] LABS: Basophils % 0.1 %; Eosinophils # 0.2 10^3/uL (0.0-0.8); Eosinophils % 1.7 %; Hematocrit 24.3 % (37.0-47.0); Hemoglobin 7.8 g/dL (11.5-15.3); Lymphocytes # 0.7 10^3/uL (0.8-4.8); Lymphocytes % 7.8 %; Mean Corpuscular HGB Conc 32.1 g/dL (30.0-36.0); Mean Corpuscular Hemoglobin 29.2 pg (28.0-34.0); Mean Platelet Volume 9.8 fL (7.4-10.4); Monocytes # 0.6 10^3/uL (0.2-0.9); Monocytes % 6.1 %; Neutrophils # 7.65 10^3/uL (1.8-7.7); Neutrophils % 83.4 %; Nucleated Red Blood Cells % 0 %; Platelet Count 237 10^3/cmm (130-400); Red Blood Count 2.67 10^6/uL (4.1-5.3); Red Cell Distribution Width 14.4 % (12.1-15.1); White Blood Count 9.2 10^3/uL (4.0-10.0)
--- NOTE | 2020-07-07 11:40 | PC.SOCIAL ---
IMM Update Pg. 2 of IMM updated over the phone with patient's DPOA who verbalized understanding. Copy provided to nursing staff to leave at bedside. Copy in chart initialed, dated, and timed.
--- NOTE | 2020-07-07 12:35 | ANES.PREANE2 ---
Pre-Anesthetic Assessment Pre-Anesthetic Assessment: Height/Weight: Height 1.52 m Weight 47.355 kg Temp Pulse Resp BP Pulse Ox 98.7 F 86 18 129/72 98 07/07/20 11:34 07/07/20 11:34 07/07/20 11:34 07/07/20 11:34 07/07/20 11:34 Preop Diagnosis: Poor oral intake Proposed Procedure: Operation Date: 07/07/20 13:25 Proposed Procedures p PEG Tube Insertion(Not Applicable) - Marc Pérez MD Was Beta Katie taken within 24 hours: N/A Social: Social History: No alcohol and No tobacco Exam: Additional Exam Findings (including area of procedure): Disoriented to place/time/situation Airway: Submandibular: WNL Cervical ROM: WNL MP: 2 Pulmonary: Pulmonary: Cough and SOB Comments: Covid Positive with acute respiratory failure CV/HEM: CV/HEM: HTN : Comments: Acute Renal Failure/Sepsis Hepatic: Hepatic: None reported GI: GI: None reported Metabolic: Metabolic: Thyroid Musc/skel: Musc/skel: None reported Neuropsych: Comments: Acute Mental Status Changes with disorientation Anesthetic Plan: ASA status: 4 Anesthesia: General Meds/Allergies Current Medications: Current Medications Generic Name Dose Route Start Last Admin Trade Name Freq PRN Reason Stop Dose Admin Ascorbic Acid 500 mg 06/27/20 15:15 07/06/20 08:58 Ascorbic Acid 50 0 Mg Tablet NG-TUBE Not Given DAILY CRISTOBAL Aspirin 300 mg 07/01/20 19:30 07/06/20 22:35 Aspirin MA 300 mg Q24H CRISTOBAL Administration Enoxaparin Sodium 40 mg 06/27/20 12:00 07/06/20 11:17 Lovenox SUBCUT 40 mg Q24H CRISTOBAL Administration Famotidine 20 mg 06/27/20 01:00 07/07/20 01:53 Pepcid Inj IVP 20 mg Q12H CRISTOBAL Administration Piperacillin Sod/T azobactam 50 mls @ 12.5 mls /hr 07/02/20 15:00 07/07/20 06:35 Sod 3.375 gm/ So dium Chloride IV 12.5 mls/hr Q8H CRISTOBAL Administration Protocol Amino Acids/Electr olytes 1,000 mls @ 42 ml s/hr 07/02/20 20:00 07/06/20 22:30 Clinimix E 5%-20 % IV 42 mls/hr .[id number] CRISTOBAL Administration Protocol Sodium Chloride 1,000 mls @ 30 ml s/hr 07/06/20 14:42 07/06/20 21:27 Sodium Chloride 0.9% IV 07/07/20 14:41 Not Given .Q24H ONE Insulin Aspart 0 unit 07/02/20 14:00 07/07/20 12:25 Novolog SUBCUT Not Given Q6H CRISTOBAL Protocol Lanolin 1 applic 06/27/20 18:03 06/29/20 01:22 CS T Lanolin Oint TOPICAL 1 applic PRN PRN Administration DRYNESS Morphine Sulfate 1 mg 07/03/20 23:50 07/04/20 17:20 Morphine IVP 1 mg Q6H PRN Administration SEVERE PAIN Additional Medication Information: Active Medications Generic Name Dose Route Start Last Admin Trade Name Freq PRN Reason Stop Dose Admin Ascorbic Acid 500 mg 06/27/20 15:15 06/29/20 09:23 Vitamin C NG-TUBE Not Given DAILY CRISTOBAL Dexamethasone 6 mg 06/27/20 11:15 06/28/20 11:59 Decadron IVP 6 mg Q24H CRISTOBAL Administration Dextrose 25 ml 06/27/20 07:31 D50w IVP ONCE PRN hypoglycemia prot ocol Protocol Dextrose 50 ml 06/27/20 07:31 D50w IVP PRN PRN hypoglycemia prot ocol Protocol Enoxaparin Sodium 40 mg 06/27/20 12:00 06/28/20 11:59 Lovenox SUBCUT 40 mg Q24H CRISTOBAL Administration Famotidine 20 mg 06/27/20 01:00 06/29/20 01:58 CD T Pepcid Inj IVP 20 mg Q12H CRISTOBAL Administration Glucagon 1 mg 06/27/20 07:31 Glucagen IM ONCE PRN Adult Acute Hypog lycemia Prot. Protocol Vancomycin HCl 500 mg/ Sodium 100 mls @ 200 mls /hr 06/27/20 02:00 06/29/20 01:50 CS T Chloride IV Infused Q48H CRISTOBAL Infusion Dextrose 500 mls @ 100 mls /hr 06/27/20 07:31 D5w IV ONCE PRN Adult Acute Hypog lycemia Prot Protocol Iron Sucrose 200 m g/ Sodium 110 mls @ 220 mls /hr 06/27/20 12:45 06/28/20 14:35 Chloride IV 07/01/20 13:14 Infused Q24H CRISTOBAL Infusion Piperacillin Sod/T azobactam 50 mls @ 12.5 mls /hr 06/27/20 17:30 06/29/20 06:06 Sod 3.375 gm/ So dium Chloride IV 12.5 mls/hr Q12H CRISTOBAL Administration Protocol Dextrose/Sodium Ch loride 1,000 mls @ 50 ml s/hr 06/28/20 17:00 06/28/20 17:06 Dextrose 5%-Sod Chloride 0.45% IV 50 mls/hr .Q20H CRISTOBAL Administration Insulin Aspart 0 unit 06/27/20 07:45 06/29/20 11:56 Novolog SUBCUT Not Given Q4H CRISTOBAL Protocol Lanolin 1 applic 06/27/20 18:03 06/29/20 01:22 CS T Lanolin Oint TOPICAL 1 applic PRN PRN Administration DRYNESS Ondansetron HCl 4 mg 06/27/20 00:58 Zofran IVP Q8H PRN vomiting, or N/V if npo Zinc Gluconate 50 mg 06/27/20 15:15 06/29/20 09:23 Zinc Gluconate NG-TUBE Not Given DAILY CRISTOBAL procaine [From Novocain] Allergy (Verified 09/04/19 08:17) NA PFS Anesthesia PFSH: Medical History (Updated 07/06/20 @ 14:47 by Marc Pérez MD) Calculus of left ureter Cystitis cystica History of kidney stones Obstructive pyelonephritis Urinary tract infection, site not specified Family History Family/Other Diabetes Mother No problems noted. Father No problems noted. Social History Smoking and tobacco status: unknown if ever smoked Alcohol intake: never Marital status: Current occupational status: retired Data Anesthesia CBC & Chem 7: 07/07/20 03:56 07/07/20 03:56 Other Labs: Laboratory Results - last 48 hr 07/05/20 07/05/20 07/06/20 16:43 20:57 01:58 WBC RBC Hgb Hct MCV MCH MCHC RDW Plt Count MPV Neut % (Auto) Lymph % (Auto) [place] % (Auto) Eos % (Auto) Baso % (Auto) Neut # (Auto) Lymph # (Auto) [place] # (Auto) Eos # (Auto) Baso # (Auto) Nucleated RBC % (auto) Nucleated RBCs # Sodium Potassium Chloride Carbon Dioxide Anion Gap BUN Creatinine GFR Calculation Glucose POC Glucose 167 131 131 Calculated Osmolality Calcium Total Bilirubin AST ALT Alkaline Phosphatase Total Protein Albumin Globulin 07/06/20 07/06/20 07/06/20 05:23 05:23 06:14 WBC 11.5 H RBC 2.68 L Hgb 7.8 L Hct 24.2 L MCV 90.3 MCH 29.1 MCHC 32.2 RDW 14.2 Plt Count 228 MPV 10.1 Neut % (Auto) 83.0 Lymph % (Auto) 6.5 [place] % (Auto) 6.0 Eos % (Auto) 2.3 Baso % (Auto) 0.1 Neut # (Auto) 9.54 H Lymph # (Auto) 0.8 [place] # (Auto) 0.7 Eos # (Auto) 0.3 Baso # (Auto) 0.0 Nucleated RBC % (auto) 0 Nucleated RBCs # 0.0 Sodium 133 L Potassium 3.1 L Chloride 103 Carbon Dioxide 24 Anion Gap 9.1 BUN 18 Creatinine 0.6 GFR Calculation Not Reportable Glucose 127 H POC Glucose 137 Calculated Osmolality 279 L Calcium 7.3 L Total Bilirubin 0.3 AST 43 H ALT 81 H Alkaline Phosphatase 121 H Total Protein 4.2 L Albumin 2.1 L Globulin 2.1 07/06/20 07/06/20 07/06/20 10:52 17:11 20:15 WBC RBC Hgb Hct MCV MCH MCHC RDW Plt Count MPV Neut % (Auto) Lymph % (Auto) [place] % (Auto) Eos % (Auto) Baso % (Auto) Neut # (Auto) Lymph # (Auto) [place] # (Auto) Eos # (Auto) Baso # (Auto) Nucleated RBC % (auto) Nucleated RBCs # Sodium Potassium Chloride Carbon Dioxide Anion Gap BUN Creatinine GFR Calculation Glucose POC Glucose 149 92 116 Calculated Osmolality Calcium Total Bilirubin AST ALT Alkaline Phosphatase Total Protein Albumin Globulin 07/07/20 07/07/20 07/07/20 01:54 03:56 03:56 WBC 9.2 RBC 2.67 L Hgb 7.8 L Hct 24.3 L MCV 91.0 MCH 29.2 MCHC 32.1 RDW 14.4 Plt Count 237 MPV 9.8 Neut % (Auto) 83.4 Lymph % (Auto) 7.8 [place] % (Auto) 6.1 Eos % (Auto) 1.7 Baso % (Auto) 0.1 Neut # (Auto) 7.65 Lymph # (Auto) 0.7 L [place] # (Auto) 0.6 Eos # (Auto) 0.2 Baso # (Auto) 0.0 Nucleated RBC % (auto) 0 Nucleated RBCs # 0.0 Sodium 135 L Potassium 3.3 L Chloride 105 Carbon Dioxide 23 Anion Gap 10.3 BUN 15 Creatinine 0.6 GFR Calculation Not Reportable Glucose 76 POC Glucose 145 Calculated Osmolality 280 L Calcium 7.4 L Total Bilirubin 0.2 AST 30 ALT 62 H Alkaline Phosphatase 130 H Total Protein 4.5 L Albumin 2.2 L Globulin 2.3 07/07/20 06:37 WBC RBC Hgb Hct MCV MCH MCHC RDW Plt Count MPV Neut % (Auto) Lymph % (Auto) [place] % (Auto) Eos % (Auto) Baso % (Auto) Neut # (Auto) Lymph # (Auto) [place] # (Auto) Eos # (Auto) Baso # (Auto) Nucleated RBC % (auto) Nucleated RBCs # Sodium Potassium Chloride Carbon Dioxide Anion Gap BUN Creatinine GFR Calculation Glucose POC Glucose 114 Calculated Osmolality Calcium Total Bilirubin AST ALT Alkaline Phosphatase Total Protein Albumin Globulin Micro: Microbiology 07/05/20 11:19 Enteric Pathogens (PCR) - Final Stool - Stool Aspirate Parasite Antigen Panel - Final Cardiac Studies: No Data to Display
[2020-07-07 13:06] LABS: Glucose Point of Care 159 mg/dL (70-110)
--- NOTE | 2020-07-07 14:08 | PM.PN ---
Subjective Subjective: Interval history: No issues overnight, patient continues to be confused Vitals/I&O/Wt Last Vital Signs Temp 98.7 F 07/07/20 11:34 Pulse 96 07/07/20 13:43 Resp 18 07/07/20 13:43 BP 111/60 07/07/20 13:43 Pulse Ox 99 07/07/20 13:43 07/06/20 07/07/20 07/07/20 22:59 06:59 14:59 Intake Total 1948.5 / 2048.5 50 / 2048.5 100 / 100 Output Total 375 / 2775 1600 / 2775 200 / 200 Balance 1573.5 / -726.5 -1550 / -726.5 -100 / -100 Weight last 48 hrs Weight 104 lb 6.4 oz Weight 113 lb Physical Exam Narrative: EXAM NARRATIVE: Abdomen: Soft Urinary Catheter Management^: Stone: Cath Placed During This Visit: yes Reason for Continuing Indwelling Catheter: Chronic Indwelling Urinary Catheter on Admission Urinary Catheter Date of Insertion: 06/27/20 Data : 07/07/20 03:56 07/07/20 03:56 Micro: Microbiology 07/05/20 11:19 Enteric Pathogens (PCR) - Final Stool - Stool Aspirate Parasite Antigen Panel - Final A&P Assessment and plan (1) Malnutrition: 75 old female with vascular dementia currently on TPN due to nasal oral intake and risk of aspiration Plan for PEG tube placement under MAC today Procedure, risks, benefits and alternatives have been discussed with the patient who wishes to proceed with surgery. Status: Acute Attestations Medical Necessity Statement*: PEG tube placement today Coding Level of Care Code Acute Truck Driver'S Offsider for Chg Fwd Diagnoses Malnutrition E46
--- NOTE | 2020-07-07 14:09 | P.OP_ITS ---
Operative Report Date of procedure: July 07, 2020 Pre-op Diagnosis: Poor oral intake Post-op diagnosis: same Post-op Diagnosis: Large hiatal hernia Procedure Done: Endoscopic percutaneous placement of 20 [place] scientific gastrostomy tube Pathology: none sent Surgeon: Marc Pérez Anesthesia: MAC Condition: stable Disposition: PACU Procedure: The patient was taken to the Operating Room and was placed under mon itored anesthesia care after antibiotic had been administered. A bite block was placed and Olympus gastroscope was introduced and advanced up to the stomach and the first portion of the duodenum. There were no abnormalities noted in the esophagus, stomach and duodenum. The site for the planned PEG was confirmed in the left upper quadrant with transillumination using gastroscope noted through the abdominal wall and indentation of the abdominal wall noted on the gastroscope. This site was marked, and total of 5 milliliters of 1% lidocaine was infiltrated. An 11-blade was used to make a stab incision. An introducer needle was passed through the abdominal wall into the gastric lumen and the needle removed and the needle removed and the sheath left behind. A guidewire was passed through the introducer needle into the gastric lumen and grasped with a snare attached to the gastroscope. The gastroscope was withdrawn along with the guidewire, which was attached to the 20-[place]ian EndoVive PEG tube. The guidewire was then pulled through the abdominal wall along with the PEG through the mouth into the gastric lumen until the inner disc was noted to stand against the gastric wall. The gastroscope was reintroduced to confirm good position. The outer disc was then attached and the two way valve was fixed to the PEG tube. The outer disc was noted to be at 4 centimeters at the skin level. Sterile dressing and abdominal binder was placed. The patient was stable throughout the procedure.
--- NOTE | 2020-07-07 14:14 | PM.PACU ---
PACU note PACU note: Baseline mental status (confused and disoriented) Post-Anesthesia Exam: somnolent, arousable and vital signs stable Disposition: admitted
[2020-07-07 16:58] LABS: Glucose Point of Care 101 mg/dL (70-110)
--- NOTE | 2020-07-07 17:30 | PM.PN ---
Subjective Subjective: Interval history: She is not communicative, not following commands. Sleeping, but wakes up briefly. Vitals/I&O/Wt Last Vital Signs Temp 98.2 F 07/07/20 15:28 Pulse 103 H 07/07/20 15:28 Resp 17 07/07/20 15:28 BP 167/97 07/07/20 15:28 Pulse Ox 97 07/07/20 15:28 07/07/20 07/07/20 07/07/20 06:59 14:59 22:59 Intake Total 50 / 2048.5 100 / 100 Output Total 1600 / 2775 400 / 400 Balance -1550 / -726.5 -300 / -300 Weight last 48 hrs Weight 47.355 kg Weight 51.256 kg Physical Exam Narrative: EXAM NARRATIVE: General: Awake but not alert, not following any commands ,very frail HEENT: PERRLA, pupils bilaterally equal and reactive Chest: B/l bronchial breath sounds, poor inspiratory effort CVS: S1-S2 regular, no murmurs, tachycardia, no gallops, no rubs Abdomen: Soft, nontender, no organomegaly, bowel sounds present Neuro: Awake but not alert Urinary Catheter Management^: Stone: Cath Placed During This Visit: yes Reason for Continuing Indwelling Catheter: Chronic Indwelling Urinary Catheter on Admission Urinary Catheter Date of Insertion: 06/27/20 Data : 07/07/20 03:56 07/07/20 03:56 Micro: Microbiology 07/05/20 11:19 Enteric Pathogens (PCR) - Final Stool - Stool Aspirate Parasite Antigen Panel - Final A&P Assessment and plan (1) Altered mental status: Most likely secondary to baseline poor mentation. Patient has advanced dementia.Patient remains noncommunicable. Not following commands. Unable to eat or perform any ADLs. Suspect unfortunately this is likely progression of vascular dementia. No evidence to suggest delirium with waxing waning symptoms. Mental status continues unchanged. Unfortunately despite continued improvement in medical conditions of sepsis, COVID-19 pneumonia, resolution of any hypoxia after initial episode, continued improvement in liver function, parenteral nutrition support, she has not made any progress and there has been no further improvement in her mentation. Have had multiple discussions during the course of hospitalization with the family member/DPOA multiple times regarding further goals of care including the nutrition supplementation. Did discuss that given her advanced age, poor mentation because of advanced dementia and poor baseline physical activity patient is at high risk of developing bedsores, high risk of infection, high risk of aspiration. Even after further multiple discussions family and DPOA wants to go ahead with PEG tube placement. Surgery has been consulted and patient will be going for PEG tube placement today. We will continue with TPN till then. Status: Acute Qualifiers: Altered mental status type: coma Coma depth: Jonna coma 9-12 Coma timing: in the field (EMT or ambulance) Qualified Code(s): R40.2421 - [place] coma scale score 9-12, in the field [EMT or ambulance] (2) Sepsis: Sepsis has resolved. Leukocytosis, lactic acidosis has resolved. We will stop all IV antibiotics except Zosyn. MRSA is negative. We will stop antibiotics 24 hours after PEG tube placement. Patient has remained afebrile hemodynamically stable. Status: Acute Qualifiers: Sepsis type: sepsis due to unspecified organism Sepsis acute organ dysfunction status: with acute organ dysfunction Severe sepsis acute organ dysfunction type: acute respiratory failure Acute respiratory failure type: with hypoxia Severe sepsis shock status: with septic shock Qualified Code(s): A41.9 - Sepsis, unspecified organism; R65.21 - Severe sepsis with septic shock; J96.01 - Acute respiratory failure with hypoxia (3) Acute respiratory failure with hypoxia: Resolved. Status: Acute (4) Metabolic acidosis: -AG closed, improved metabolic acidosis Status: Acute (5) COVID-19: -Known COVID-19 infection approximately 2 weeks ago initially hospitalized here with acute decompensation. This had since improved. Was weaned to RA until now suspected with aspiration. Continue with isolation precautions. Dexamethasone stopped early in the admission. Continue with pulmonary toilet as needed. Status: Acute (6) Lactic acidosis: -likely secondary to infection Status: Acute (7) Acute hypernatremia: -Normalized. Status: Resolved (8) Acute kidney injury: Resolved. -secondary to dehydration -continue to monitor renal function -avoid nephrotoxins, renally dose meds -ACEI on hold Status: Acute (9) Elevated troponin: While septic, with respiratory failure was noted to have elevated troponin. Unfortinately unable to tolerate any oral medications. ASA PA. Depending on goals of care could be evaluated further with stress test after recovery, although given overall condition and quality of life this would probably not be significantly beneficial. -telemetry monitoring -continue to monitor vital signs -Echo: EF=77%, moderate to severe LVH, G1DD Status: Acute Additional A&P Information Diarrhea: added bacterial and parasite studies. C diff neg. Start patient on Lomotil liquid after PEG tube placement. -elevated D-dimer in setting of renal impairment, COVID-19 infection, continue with lovenox -hemoconcentration likely secondary to dehydration; trend CBC. Baseline Hg is around 10 -hx of obstructive pyelonephritis secondary to L proximal ureteral stone s/p L ureteral stent placement (08/2019). Resolved. No stone noted on CTAP as discussed w POA. -Hypothyroidism; PO meds on hold. TSH wnl. -fecal impaction resolved; multiple episodes of loose stool, rectal tube in place; negative C. difficile. -at least moderate protein calorie malnutrition; BMI-16 kg/m2; -Chronic constipation -HTN; BPs at goal. -Chronic back pain -hx of AAA -Transaminitis improving. -Rhabdomyolysis resolved, recheck CK normal. -GI ppx with famotidine -DVT ppx with lovenox -NPO due to mental status. TPN -Dispo: return to [facility]. Pending additional goals of care discussion. -Code status: DNR/DNI; ok with ICU admission, pressor support. DPOA Jacki Barcenas. Discharge planning: We will discuss further with patient's DPOA after PEG tube placement. If patient goes through PEG tube placement well and is maintaining saturation on room air most likely can discharge back to [facility]. Patient's DPOA verbalized his understanding that PEG tube placement is only for nutrition supplementation but patient continues to be at risk of aspiration and also at risk for infection because of advanced dementia, bedbound status, poor nutritional supplementation. Attestations Medical Necessity Statement*: Patient requires further hospitalization for PEG tube placement given moderate to severe protein energy malnutrition, n.p.o. status because of aspiration risks while further goals of care were discussed with the family members. Time Spent in Patient Care: Greater than 35 minutes (>than 50% of time spent in counselling and/or direct pt care on unit). Coding Level of Care Code Acute Mud Analysis Supervisor for g Fwd Diagnoses Altered mental status R40.2421 Altered mental status type: coma Coma depth: Jonna coma 9-12 Coma timing: in the field (EMT or ambulance) Sepsis A41.9; R65.21; J96.01 Sepsis type: sepsis due to unspecified organism Sepsis acute organ dysfunction status: with acute organ dysfunction Severe sepsis acute organ dysfunction type: acute respiratory failure Acute respiratory failure type: with hypoxia Severe sepsis shock status: with septic shock Acute respiratory failure with hypoxia J96.01 Metabolic acidosis E87.2 COVID-19 U07.1 Lactic acidosis E87.2 Acute hypernatremia E87.0 Acute kidney injury N17.9 Elevated troponin R77.8
[2020-07-07] MEDS: enoxaparin 40 mg/0.4 mL Syringe SUBCUT (17:57)
--- NOTE | 2020-07-07 18:22 | PC.NURSE ---
TUBE FEED STARTED AT 0625. PER ORDER.
[2020-07-07 21:32] LABS: Glucose Point of Care 90 mg/dL (70-110)
--- NOTE | 2020-07-07 23:10 | PC.NURSE ---
feeding tube, 10ml per hour.
[2020-07-08] VITALS (9 sets, daily range): BP systolic 107–152; BP diastolic 71–88; PULSE 65–107; RESP 16–20; TEMP 36.9–37.7; O2SAT 94–98
[2020-07-08 02:01] LABS: Glucose Point of Care 108 mg/dL (70-110)
[2020-07-08] MEDS: famotidine 20 mg/2 mL INJ IVP ×2 (02:34→12:19)
[2020-07-08] MEDS: piperacillin-tazobactam 3.375 GM in sodium chloride 0.9% (plus) 50 ML IV ×3 (06:18→22:30)
[2020-07-08 06:51] LABS: Glucose Point of Care 120 mg/dL (70-110)
--- NOTE | 2020-07-08 07:24 | NUR.SHIFT ---
Patient had an unremarkable night. When this nurse would enter the room and the patient was awake, the patient would track and moan, otherwise would not answer questions or acknowledge.
[2020-07-08] MEDS: ascorbic acid 500 mg Tablet NG-TUBE (09:43)
[2020-07-08] MEDS: aspirin 81 mg EC Tablet PO (09:44)
[2020-07-08 11:25] LABS: Glucose Point of Care 131 mg/dL (70-110)
[2020-07-08 11:32] LABS: Basophils % 0.1 %; Eosinophils # 0.1 10^3/uL (0.0-0.8); Eosinophils % 0.5 %; Hematocrit 25.8 % (37.0-47.0); Hemoglobin 8.4 g/dL (11.5-15.3); Lymphocytes # 0.7 10^3/uL (0.8-4.8); Lymphocytes % 4.1 %; Mean Corpuscular HGB Conc 32.6 g/dL (30.0-36.0); Mean Corpuscular Hemoglobin 28.8 pg (28.0-34.0); Mean Corpuscular Volume 88.4 fL (81-99); Mean Platelet Volume 9.5 fL (7.4-10.4); Monocytes # 0.7 10^3/uL (0.2-0.9); Monocytes % 4.3 %; Neutrophils # 14.48 10^3/uL (1.8-7.7); Neutrophils % 90.6 %; Nucleated Red Blood Cells % 0 %; Platelet Count 264 10^3/cmm (130-400); Red Blood Count 2.92 10^6/uL (4.1-5.3); Red Cell Distribution Width 14.2 % (12.1-15.1)
[2020-07-08 11:55] LABS: Alanine Aminotransferase 57 U/L (0-33); Albumin Level 2.2 g/dL (3.5-5.2); Alkaline Phosphatase 205 IU/L (35-105); Anion Gap 12.8 (5-19); Aspartate Amino Transferase 29 U/L (0-32); Blood Urea Nitrogen 13 mg/dL (8-23); Carbon Dioxide 24 mmol/L (22-29); Chloride 98 mmol/L (98-107); Globulin 3.1 g/dL (1.3-4.6); Glucose 120 mg/dL (65-115); Osmolality Calculated 273 mOsm/kg (285-295); Potassium 3.8 mmol/L (3.5-5.1); Sodium 131 mmol/L (136-145); Total Bilirubin 0.3 mg/dL (0.15-1.2); Total Protein 5.3 g/dL (6.6-8.7)
[2020-07-08] MEDS: enoxaparin 40 mg/0.4 mL Syringe SUBCUT (12:19)
--- NOTE | 2020-07-08 13:48 | ANE.PACU2 ---
Inpatient post-anesthesia follow up: Airway intact: Yes Vital signs: Temperature 98.6 F Pulse Rate [Monito r] 124 Pulse Rate 101 Respiratory Rate 18 Blood Pressure [Ri ght Arm] 141/99 Blood Pressure 107/71 Pulse Oximetry 94 Oxygen Delivery Me thod [ Room Air Current Rate & Del carrington] Oxygen Delivery Me thod Room Air Oxygen Flow Rate [ Current Rate 2 & Delivery] Oxygen Flow Rate 0 Fraction of Inspir ed Oxygen Hydration adequate: Yes Nausea and vomiting: No Pain level: 1 Mental status: Baseline
[2020-07-08] MEDS: morphine 4 mg/mL SDV 1 mL 1 MG IVP (14:12)
[2020-07-08 15:15] LABS: Glucose Point of Care 130 mg/dL (70-110)
--- NOTE | 2020-07-08 16:27 | P.PN_ITS ---
Subjective Subjective: Interval history: Last 24 hours patient underwent PEG tube placement. Procedure was unremarkable. On examination patient continues to be nonverbal. Today she is morning a little bit. She is remained hemodynamically stable. T-max in last 24 hours 99.9 Fahrenheit. Labs and vitals noted. Vitals/I&O/Wt Last Vital Signs Temp 98.6 F 07/08/20 15:14 Pulse 103 H 07/08/20 15:14 Resp 16 07/08/20 15:14 BP 130/88 07/08/20 15:14 Pulse Ox 95 07/08/20 15:14 07/08/20 07/08/20 07/08/20 06:59 14:59 22:59 Intake Total 50 / 200 50 / 50 Output Total 650 / 1050 200 / 200 Balance -600 / -850 -150 / -150 Weight last 48 hrs Weight 49.759 kg Weight 47.355 kg Physical Exam Narrative: EXAM NARRATIVE: General: Awake but not alert, not following any commands ,very frail HEENT: PERRLA, pupils bilaterally equal and reactive Chest: B/l bronchial breath sounds, poor inspiratory effort CVS: S1-S2 regular, no murmurs, tachycardia, no gallops, no rubs Abdomen: Soft, nontender, no organomegaly, bowel sounds present Neuro: Awake but not alert Urinary Catheter Management^: Stone: Cath Placed During This Visit: yes, but has since been removed by the nurse Reason for Continuing Indwelling Catheter: Decision to DC Catheter Urinary Catheter Date of Insertion: 06/27/20 Date Urinary Catheter Removed: 07/08/20 Time Urinary Catheter Discontinued: 10:09 Data : 07/08/20 10:38 07/08/20 10:38 A&P Assessment and plan (1) Altered mental status: Most likely secondary to baseline poor mentation. Patient has advanced dementia.Patient remains noncommunicable. Not following commands. Unable to eat or perform any ADLs. Suspect unfortunately this is likely progression of vascular dementia. Unfortunately despite continued improvement in medical conditions of sepsis, COVID-19 pneumonia, resolution of any hypoxia after initial episode, continued improvement in liver function, parenteral nutrition support, she has not made any progress and there has been no further improvement in her mentation. Have had multiple discussions during the course of hospitalization with the family member/DPOA multiple times regarding further goals of care including the nutrition supplementation. Did discuss that given her advanced age, poor mentation because of advanced dementia and poor baseline physical activity patient is at high risk of developing bedsores, high risk of infection, high risk of aspiration. Even after further multiple discussions family and DPOA wants to go ahead with PEG tube placement. Patient underwent PEG tube placement yesterday. Status: Acute Qualifiers: Altered mental status type: coma Coma depth: Jonna coma 9-12 Coma timing: in the field (EMT or ambulance) Qualified Code(s): R40.2421 - [place] coma scale score 9-12, in the field [EMT or ambulance] (2) Malnutrition: Status: Acute (3) PEG (percutaneous endoscopic gastrostomy) status: Dietitian consult. Tolerating tube feeds at 30 cc/h currently. We will continue to increase reaching the goal. Status: Acute (4) Sepsis: Patient has some leukocytosis overnight. Most likely secondary to inflammation from procedure yesterday. Patient has remained hemodynamically stable. Sepsis has resolved. Continue with Zosyn for 24 to 36 hours post PEG tube placement. We will stop antibiotics 24 hours after PEG tube placement. Patient has remained afebrile hemodynamically stable. Status: Acute Qualifiers: Sepsis type: sepsis due to unspecified organism Sepsis acute organ dysfunction status: with acute organ dysfunction Severe sepsis acute organ dysfunction type: acute respiratory failure Acute respiratory failure type: with hypoxia Severe sepsis shock status: with septic shock Qualified Code(s): A41.9 - Sepsis, unspecified organism; R65.21 - Severe sepsis with septic shock; J96.01 - Acute respiratory failure with hypoxia (5) Acute respiratory failure with hypoxia: Resolved. Status: Acute (6) Metabolic acidosis: -AG closed, improved metabolic acidosis Status: Acute (7) COVID-19: -Known COVID-19 infection approximately 2 weeks ago initially hospitalized here with acute decompensation. This had since improved. Was weaned to RA until now suspected with aspiration. Continue with isolation precautions. Dexamethasone stopped early in the admission. Continue with pulmonary toilet as needed. Status: Acute (8) Lactic acidosis: -likely secondary to infection Status: Acute (9) Acute hypernatremia: -Normalized. Status: Resolved (10) Acute kidney injury: Resolved. -secondary to dehydration -continue to monitor renal function -avoid nephrotoxins, renally dose meds -ACEI on hold Status: Acute (11) Elevated troponin: While septic, with respiratory failure was noted to have elevated troponin. Unfortinately unable to tolerate any oral medications. ASA ID. Depending on goals of care could be evaluated further with stress test after recovery, although given overall condition and quality of life this would probably not be significantly beneficial. -telemetry monitoring -continue to monitor vital signs -Echo: EF=77%, moderate to severe LVH, G1DD Status: Acute Additional A&P Information Diarrhea: added bacterial and parasite studies. C diff neg. Start patient on Lomotil liquid after PEG tube placement. -elevated D-dimer in setting of renal impairment, COVID-19 infection, continue with lovenox -hemoconcentration likely secondary to dehydration; trend CBC. Baseline Hg is around 10 -hx of obstructive pyelonephritis secondary to L proximal ureteral stone s/p L ureteral stent placement (08/2019). Resolved. No stone noted on CTAP as discussed w POA. -Hypothyroidism; PO meds on hold. TSH wnl. -fecal impaction resolved; multiple episodes of loose stool, rectal tube in place; negative C. difficile. -at least moderate protein calorie malnutrition; BMI-16 kg/m2; -Chronic constipation -HTN; BPs at goal. -Chronic back pain -hx of AAA -Transaminitis improving. -Rhabdomyolysis resolved, recheck CK normal. -GI ppx with famotidine -DVT ppx with lovenox -NPO due to mental status. TPN -Dispo: return to [facility]. -Code status: DNR/DNI; ok with ICU admission, pressor support. DPOA Jacki Barcenas. Discharge planning: Discussed in detail and updated patient's DPOA Ms. Barcenas. Discussed with her that if patient continues to remain stable we will try to increase the tube feeds to goal and discharge tomorrow back [facility]. Also discussed that currently patient does not have any requirement of tracheostomy as she is maintaining her airway and saturations on room air. All the questions were answered. Attestations Medical Necessity Statement*: Patient requires further hospitalization while tube feeds were increased to goal without any aspiration, further goals of care discussion with family and arrangement of safe discharge planning. Time Spent in Patient Care: Greater than 35 minutes (>than 50% of time spent in counselling and/or direct pt care on unit) . Coding Level of Care Code Acute Homicide Squad Commanding Officer for Chg Fwd Diagnoses Altered mental status R40.2421 Altered mental status type: coma Coma depth: [place] coma 9-12 Coma timing: in the field (EMT or ambulance) Malnutrition E46 PEG (percutaneous endoscopic gastrostomy) status Z93.1 Sepsis A41.9; R65.21; J96.01 Sepsis type: sepsis due to unspecified organism Sepsis acute organ dysfunction status: with acute organ dysfunction Severe sepsis acute organ dysfunction type: acute respiratory failure Acute respiratory failure type: with hypoxia Severe sepsis shock status: with septic shock Acute respiratory failure with hypoxia J96.01 Metabolic acidosis E87.2 COVID-19 U07.1 Lactic acidosis E87.2 Acute hypernatremia E87.0 Acute kidney injury N17.9 Elevated troponin R77.8
--- NOTE | 2020-07-08 20:57 | PC.NURSE ---
Patients Glu was at 142, system did not update the chart
[2020-07-08 21:03] LABS: Glucose Point of Care 142 mg/dL (70-110)
[2020-07-09] VITALS (7 sets, daily range): BP systolic 91–142; BP diastolic 64–86; PULSE 93–111; RESP 18–23; TEMP 36.6–36.9; O2SAT 94–98
[2020-07-09] MEDS: famotidine 20 mg/2 mL INJ IVP ×2 (00:35→13:13)
[2020-07-09] MEDS: morphine 4 mg/mL SDV 1 mL 1 MG IVP (02:26)
--- NOTE | 2020-07-09 03:12 | PC.NURSE ---
Complete bed change, chucks and linen soaked with urine.
[2020-07-09 04:31] LABS: Glucose Point of Care 122 mg/dL (70-110)
[2020-07-09] MEDS: piperacillin-tazobactam 3.375 GM in sodium chloride 0.9% (plus) 50 ML IV ×2 (06:00→15:07)
[2020-07-09 07:55] LABS: Basophils % 0.3 %; Eosinophils # 0.2 10^3/uL (0.0-0.8); Eosinophils % 1.5 %; Hematocrit 27.3 % (37.0-47.0); Hemoglobin 8.6 g/dL (11.5-15.3); Lymphocytes # 0.9 10^3/uL (0.8-4.8); Lymphocytes % 8.6 %; Mean Corpuscular HGB Conc 31.5 g/dL (30.0-36.0); Mean Corpuscular Hemoglobin 28.5 pg (28.0-34.0); Mean Corpuscular Volume 90.4 fL (81-99); Mean Platelet Volume 9.4 fL (7.4-10.4); Monocytes # 0.8 10^3/uL (0.2-0.9); Monocytes % 7.8 %; Neutrophils # 8.51 10^3/uL (1.8-7.7); Neutrophils % 81.4 %; Nucleated Red Blood Cells % 0 %; Platelet Count 247 10^3/cmm (130-400); Red Blood Count 3.02 10^6/uL (4.1-5.3); Red Cell Distribution Width 14.2 % (12.1-15.1); White Blood Count 10.5 10^3/uL (4.0-10.0)
[2020-07-09 08:11] LABS: Glucose Point of Care 142 mg/dL (70-110)
--- NOTE | 2020-07-09 08:12 | PC.NUTR ---
NUTR TF RECOMMENDATIONS: Jevity with goal rate of 40 ml/hr providing 1152 kcal (94%), 53 g PRO (110%), 775 ml fluid (63%)(%NEEDS). Suggest starting TF at 20 ml and increaes by 10 ml Q6H as tolerated till goal rate is met. Suggest H2O flushes of 50 ml Q4H to approach fluid needs or per physician. BOLUS: 4 cans total daily over 3 feedings. 1/2 cup H2O flushes after each feeding.
[2020-07-09 08:24] LABS: Alanine Aminotransferase 46 U/L (0-33); Albumin Level 2.5 g/dL (3.5-5.2); Alkaline Phosphatase 226 IU/L (35-105); Anion Gap 13.1 (5-19); Aspartate Amino Transferase 26 U/L (0-32); Blood Urea Nitrogen 12 mg/dL (8-23); Calcium 8.4 mg/dL (8.5-10.5); Carbon Dioxide 27 mmol/L (22-29); Chloride 100 mmol/L (98-107); Globulin 2.9 g/dL (1.3-4.6); Glucose 136 mg/dL (65-115); Osmolality Calculated 284 mOsm/kg (285-295); Potassium 4.1 mmol/L (3.5-5.1); Sodium 136 mmol/L (136-145); Total Bilirubin 0.3 mg/dL (0.15-1.2); Total Protein 5.4 g/dL (6.6-8.7)
[2020-07-09] MEDS: ascorbic acid 500 mg Tablet NG-TUBE (09:31)
[2020-07-09] MEDS: aspirin 81 mg EC Tablet PO (09:31)
--- NOTE | 2020-07-09 11:00 | P.DS_ITS ---
Discharge Providers Date of Admission: 06/26/20 21:11 Date of Discharge: July 09, 2020 Attending Provider at Admission: Weston Hong Attending Provider at Discharge: Jake Malik MD Consults: Surgery: Dr. Pérez Primary Care Provider: Lizeth Britton MD Diagnoses at Discharge Discharge Diagnosis (1) Altered mental status: Status: Acute Qualifiers: Altered mental status type: coma Coma depth: Jonna coma 9-12 Coma timing: in the field (EMT or ambulance) Qualified Code(s): R40.2421 - Jonna coma scale score 9-12, in the field [EMT or ambulance] (2) Malnutrition: Status: Acute (3) PEG (percutaneous endoscopic gastrostomy) status: Status: Acute (4) Sepsis: Status: Acute Qualifiers: Sepsis type: sepsis due to unspecified organism Sepsis acute organ dysfunction status: with acute organ dysfunction Severe sepsis acute organ dysfunction type: acute respiratory failure Acute respiratory failure type: with hypoxia Severe sepsis shock status: with septic shock Qualified Code(s): A41.9 - Sepsis, unspecified organism; R65.21 - Severe sepsis with septic shock; J96.01 - Acute respiratory failure with hypoxia (5) Acute respiratory failure with hypoxia: Status: Acute (6) Metabolic acidosis: Status: Acute (7) COVID-19: Status: Acute (8) Lactic acidosis: Status: Acute (9) Acute hypernatremia: Status: Resolved (10) Acute kidney injury: Status: Acute (11) Elevated troponin: Status: Acute Reason for Visit Reason for Visit: DECREASED LOC/ COVID POSITIVE Hospital Course Hospital Course 75-year-old female with a past medical history significant for obstructive uropathy, UTI/pyelonephritis and COVID-19 apparently diagnosed over 2 weeks prior who was brought to the hospital after she was found to be unresponsive. Patient was difficult to arouse at the time of my evaluation. History was obtained from review of records. Upon arrival patient's laboratory workup showed a WBC of 26.7, hemoglobin of 17.8, hematocrit of 58.7 and platelet count of 256. sodium 159, potassium 4.0, chloride 115, bicarb 23, BUN 87 and creatinine of 1.7. AST of 171, ALT of 210, alkaline phosphatase of 203. Total bilirubin of 1.3. Troponin T of 81, C reactive protein of 42.1. CT chest abdomen pelvis showed patchy very subtle ground-glass interstitial lung disease right upper and right lower lobe consistent with active interstitial pneumonitis. Rectal fecal impaction, enlarged gallbladder, infrarenal fusiform aneurysmal dilation of abdominal aorta. CT head without contrast did not show any acute abnormality. On admission patient was severely ill, altered found to be in severe sepsis, hy pernatremia and severely dehydrated. She was started on broad-spectrum antibiotics, IV fluids as per her sodium levels. Patient tested positive for COVID-19 so she was moved to viral ICU and started on antiviral treatment with remdesivir as well. Gradually on her medical problems improved though her mentation remained the same outpatient being severely cognitively impaired and only able to communicate to the morning following simple commands. Because of severely impaired baseline physical and mentation along with advanced age and advanced dementia multiple goals of care discussions were done with patient's DPOA Marilee Barcenas. Patient is DNR/DNI with limited resuscitation only for ICU admission and pressors. Poor nutrition status after multiple goals of care discussion DPOA decided for PEG tube placement as patient is at high risk for aspiration. Surgery was consulted and patient underwent replacement on July 07. Tube feeds have been advanced and currently patient is tolerating 40 cc/h with 250 cc free water flush every 6 hours. Patient is being discharged in hemodynamically stable condition. Physical Exam Narrative: EXAM NARRATIVE: General: Awake but not alert, not following any commands ,very frail HEENT: PERRLA, pupils bilaterally equal and reactive Chest: B/l bronchial breath sounds, poor inspiratory effort CVS: S1-S2 regular, no murmurs, tachycardia, no gallops, no rubs Abdomen: Soft, nontender, no organomegaly, bowel sounds present Neuro: Awake but not alert Urinary Catheter Management^: Stone: Cath Placed During This Visit: yes, but has since been removed by the nurse Reason for Continuing Indwelling Catheter: Decision to DC Catheter Urinary Catheter Date of Insertion: 06/27/20 Date Urinary Catheter Removed: 07/08/20 Time Urinary Catheter Discontinued: 10:09 Discharge Data Data Completed and Pending: Completed Studies During Hospitalization Category Date Time Status CT chest abd pel wo con Urgent Cat Scan 06/26/20 18:[address] head wo con* 7 0450 Routine Cat Scan 06/30/20 13:[address] head wo con* 7 0450 Stat Cat Scan 06/26/20 13:54 Completed XR abdomen 1V* 74 018 Stat Exams 06/27/20 15:47 Completed XR chest 1V angela ble 18709 Q48H Exams 06/28/20 06:00 Completed XR chest 1V angela ble 53795 Routine Exams 06/27/20 11:21 Completed XR chest 1V angela ble 07028 Stat Exams 06/26/20 13:55 Completed XR chest 1V angela ble 09196 Stat Exams 06/27/20 15:47 Completed CV carotid duplex BI* [id number] Routine Ultrasound 07/02/20 19:20 Completed CV echo complete* 32590 Routine Ultrasound 06/27/20 07:31 Completed US abdomen limite d 66704 Routine Ultrasound 07/02/20 08:05 Completed Labs from last 24 hours 07/09/20 07/09/20 07/09/20 07:50 07:15 07:15 WBC 10.5 H RBC 3.02 L Hgb 8.6 L Hct 27.3 L MCV 90.4 MCH 28.5 MCHC 31.5 RDW 14.2 Plt Count 247 MPV 9.4 Neut % (Auto) 81.4 Lymph % (Auto) 8.6 Yates % (Auto) 7.8 Eos % (Auto) 1.5 Baso % (Auto) 0.3 Neut # (Auto) 8.51 H Lymph # (Auto) 0.9 Yates # (Auto) 0.8 Eos # (Auto) 0.2 Baso # (Auto) 0.0 Nucleated RBC % (a uto) 0 Nucleated RBCs # 0.0 Sodium 136 Potassium 4.1 Chloride 100 Carbon Dioxide 27 Anion Gap 13.1 BUN 12 Creatinine 0.6 GFR Calculation Not Reportable Glucose 136 H POC Glucose 142 Calculated Osmolal ity 284 L Calcium 8.4 L Total Bilirubin 0.3 AST 26 ALT 46 H Alkaline Phosphata se 226 H Total Protein 5.4 L Albumin 2.5 L Globulin 2.9 07/09/20 07/08/20 07/08/20 02:50 20:36 14:17 WBC RBC Hgb Hct MCV MCH MCHC RDW Plt Count MPV Neut % (Auto) Lymph % (Auto) Yates % (Auto) Eos % (Auto) Baso % (Auto) Neut # (Auto) Lymph # (Auto) Yates # (Auto) Eos # (Auto) Baso # (Auto) Nucleated RBC % (a uto) Nucleated RBCs # Sodium Potassium Chloride Carbon Dioxide Anion Gap BUN Creatinine GFR Calculation Glucose POC Glucose 122 142 130 Calculated Osmolal ity Calcium Total Bilirubin AST ALT Alkaline Phosphata se Total Protein Albumin Globulin 07/08/20 07/08/20 07/08/20 11:03 10:38 10:38 WBC 16.0 H RBC 2.92 L Hgb 8.4 L Hct 25.8 L MCV 88.4 MCH 28.8 MCHC 32.6 RDW 14.2 Plt Count 264 MPV 9.5 Neut % (Auto) 90.6 Lymph % (Auto) 4.1 Yates % (Auto) 4.3 Eos % (Auto) 0.5 Baso % (Auto) 0.1 Neut # (Auto) 14.48 H Lymph # (Auto) 0.7 L Yates # (Auto) 0.7 Eos # (Auto) 0.1 Baso # (Auto) 0.0 Nucleated RBC % (a uto) 0 Nucleated RBCs # 0.0 Sodium 131 L Potassium 3.8 Chloride 98 Carbon Dioxide 24 Anion Gap 12.8 BUN 13 Creatinine 0.5 GFR Calculation Not Reportable Glucose 120 H POC Glucose 131 Calculated Osmolal ity 273 L Calcium 8.0 L Total Bilirubin 0.3 AST 29 ALT 57 H Alkaline Phosphata se 205 H Total Protein 5.3 L Albumin 2.2 L Globulin 3.1 Vitals: Last Vital Signs Temp 97.9 F 07/09/20 08:00 Pulse 97 07/09/20 08:00 Resp 18 07/09/20 08:00 BP 122/77 07/09/20 08:00 Pulse Ox 98 07/09/20 08:00 Discharge Plan Discharge Patient Disposition: Xfer SNF Condition: Stable Prescriptions: New Vitamin C 500 mg Tablet 500 mg ng-tube DAILY Qty: 20 RF: 0 aspirin 81 mg Tablet,Delayed Release (Dr/Ec) 81 mg PO DAILY Qty: 30 RF: 0 Anti-Diarrheal (loperamide) 1 mg/7.5 mL Liquid 1 mg PO QID PRN (Reason: Diarrhea) Qty: 225 RF: 0 [place] 5-325 mg tablet 1 tab PO DAILY PRN (Reason: pain) Qty: 10 RF: 0 Continued acetaminophen [Tylenol] 325 mg capsule 650 mg PO Q6H PRN (Reason: Pain) RF: 0 levothyroxine 25 mcg capsule 25 mcg PO DAILY RF: 0 multivitamin Tablet 1 tab PO DAILY RF: 0 Milk of Magnesia 400 mg/5 mL Suspension 400 mg PO DAILY PRN (Reason: Constipation) RF: 0 bisacodyl 10 mg Suppository 10 mg NV DAILY PRN (Reason: Constipation) RF: 0 Discontinued lisinopril 10 mg tablet 10 mg PO DAILY RF: 0 Discharge Orders: Discharge Order (Routine); Ordered 07/09/20 Ordered By: Jake Malik Referrals: [facility] [Outside] Lizeth Britton MD [Primary Care Provider] - 2 weeks Discharge Diet: Start new tube feeds as directed Discharge Activity: Resume usual activity Activity Restrictions/Additional Instructions: Ensure plus at 40 cc/h with 250 cc free water flush every 6 hours. Discharge Attestations Time Spent in Discharge Care*: greater than 30 min Specific Discharge Activities: educating and/or supporting family/caregiver, discussing with case operator/social workers/dc planners, documenting/other paperwork and evaluating patient/reviewing data Status at Discharge: Cognitive status at discharge: severely impaired cognition , Behavioral status at discharge: cooperative , Functional status at discharge: bed bound Overall status at discharge: patient is back to baseline Quality Metrics Clinical Quality Measures During this hospital stay, did patient experience: None Coding Level of Care Code Acute [employer] 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 [employer]g Fwd Diagnoses Altered mental status R40.2421 Altered mental status type: coma Coma depth: Jonna coma 9-12 Coma timing: in the field (EMT or ambulance) Malnutrition E46 PEG (percutaneous endoscopic gastrostomy) status Z93.1 Sepsis A41.9; R65.21; J96.01 Sepsis type: sepsis due to unspecified organism Sepsis acute organ dysfunction status: with acute organ dysfunction Severe sepsis acute organ dysfunction type: acute respiratory failure Acute respiratory failure type: with hypoxia Severe sepsis shock status: with septic shock Acute respiratory failure with hypoxia J96.01 Metabolic acidosis E87.2 COVID-19 U07.1 Lactic acidosis E87.2 Acute hypernatremia E87.0 Acute kidney injury N17.9 Elevated troponin R77.8
[2020-07-09 12:19] LABS: Glucose Point of Care 71 mg/dL (70-110)
[2020-07-09] MEDS: enoxaparin 40 mg/0.4 mL Syringe SUBCUT (13:12)
--- NOTE | 2020-07-09 13:17 | PC.SOCIAL ---
IMM Updated Updated pt's family, Jacki, on Pg 2 IMM, via phone. No questions voiced. Signed, dated, & timed copy in chart.
[2020-07-09 18:04] LABS: Glucose Point of Care 144 mg/dL (70-110)
== END 2020-07-09 17:45 | disposition skilled nursing facility (03) | DRG 871 ==
LOC: ER 13:42 → MEDSURG 23:12 → ICU 06-27 15:05 → MEDSURG 06-30 11:18
PROVIDERS: Family Medicine; Internal Medicine; Surgery; Admitting Provider Hospitalist; Emergency Provider Family Medicine; PCP Family Medicine; Visit Provider Student in an Organized Health Care Education/Training Program
PROC: 0DH63UZ Insertion of Feeding Device into Stomach, Percutaneous Approach (ICD-10-PCS; CPT 43246; principal; 2020-07-07 13:15)
DX: A41.9 Sepsis, unspecified organism (principal); R65.21 Severe sepsis with septic shock; U07.1 COVID-19; J12.89 Other viral pneumonia; J96.01 Acute respiratory failure with hypoxia; G93.41 Metabolic encephalopathy; E87.0 Hyperosmolality and hypernatremia; N17.9 Acute kidney failure, unspecified; E87.2 Acidosis; E44.0 Moderate protein-calorie malnutrition; Z68.1 Body mass index [BMI] 19.9 or less, adult; Z87.440 Personal history of urinary (tract) infections; K59.00 Constipation, unspecified; I71.4 Abdominal aortic aneurysm, without rupture; Z87.442 Personal history of urinary calculi; R40.2421 Glasgow coma scale score 9-12, in the field [EMT or ambulance]; Z66 Do not resuscitate; R73.9 Hyperglycemia, unspecified; E03.9 Hypothyroidism, unspecified; I95.9 Hypotension, unspecified; I10 Essential (primary) hypertension; R00.0 Tachycardia, unspecified; E86.0 Dehydration; K44.9 Diaphragmatic hernia without obstruction or gangrene; F01.50 Vascular dementia, unspecified severity, without behavioral disturbance, psychotic disturbance, mood disturbance, and anxiety; R19.7 Diarrhea, unspecified; Z86.73 Personal history of transient ischemic attack (TIA), and cerebral infarction without residual deficits; G93.89 Other specified disorders of brain; I65.23 Occlusion and stenosis of bilateral carotid arteries
CPT/HCPCS: 12345; 36415; 36416; 36569; 36592; 36600; 43246; 51702; 70450; 71045; 71250; 74018; 74176; 76705; 80048; 80051; 80053; 80074; 80202; 81001; 82140; 82330; 82550; 82728; 82805; 82962; 83036; 83540; 83550; 83605; 83735; 83880; 84145; 84443; 84484; 85007; 85025; 85378; 85384; 85610; 86140; 86403; 87040; 87426; 87449; 87493; 87506; 87635; 87641; 87804; 92610; 93005; 93306; 93880; 94640; 94664; 96372; 96375; 99284; J1100; J1650; J1756; J1815; J2270; J2370; J2543; J2704; J3480; J3490; J7030; J7626; J7799; P9047

== ENCOUNTER 2020-07-20 09:15 | Observation (INO) | payer MEDICARE, MEDICAID, SELFPAY ==
[2020-07-20] VITALS (17 sets, daily range): BP systolic 85–148; BP diastolic 53–119; PULSE 85–140; RESP 15–24; TEMP 36.5–37.1; O2SAT 92–100; BMI 19.2
--- NOTE | 2020-07-20 09:21 | ECG_ITS ---
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 [email or web address]
--- NOTE | 2020-07-20 09:29 | W.ED.GENADLT ---
HPI - General Adult General: Chief complaint: Altered Mental Status Stated complaint: DECREASED LOC Time Seen by Provider: 07/20/20 09:16 Source: EMS Mode of arrival: EMS Limitations: altered mental status History of Present Illness: HPI narrative: Mrs. Hernandes is a 75-year-old female brought in by EMS with report of respiratory distress. According to EMS who gives the entire history the patient on her 5 L of nasal cannula oxygen had a pulse ox in the 70s. They placed her on CPAP and her pulse ox came up to 95%. Apparently the senior care did give the patient a dose of Ativan for anxiety, it was believed to be IM. Here the patient is altered but is in mild respiratory distress. Her vital signs appear to be stable on BiPAP except for her tachycardia. Patient is unable to provide any meaningful history. EMS reports the patient did test positive for Covid on June 09 but has since been released and cleared from Covid and has been released from any restrictions. Review of Systems General: Reports: ROS unobtainable due to mental status PFS ED PFSH: Medical History (Updated 07/20/20 @ 16:08 by Becky Alfaro) Calculus of left ureter Cystitis cystica History of kidney stones Obstructive pyelonephritis Urinary tract infection, site not specified Family History Family/Other Diabetes Mother No problems noted. Father No problems noted. Social History Smoking and tobacco status: unknown if ever smoked Alcohol intake: never Marital status: Current occupational status: retired Physical Exam Const: COMMON NORMALS: alert GENERAL APPEARANCE: lethargic, ill appearing and frail appearing ORIENTATION/CONSCIOUSNESS: Yes lethargic HENMT: COMMON NORMALS: normocephalic, atraumatic, external ears normal, EAC's normal and Normal external nose present HEAD & SCALP: normal to inspection, normocephalic and atraumatic FACE & SINUS: normal facial exam and face symmetric NOSE: Normal external nose present and Normal nares present EXTERNAL EAR: Yes external ears normal EXTERNAL AUDITORY CANAL: EAC's normal MOUTH: Normal oral and palatal mucosa present, lip normal and tongue normal Eye: COMMON NORMALS: Equal, round and reactive pupils present and conjunctivae normal GENERAL EYE: appearance normal, both eyes and all related structures ALIGNMENT: Yes alignment normal PERIORBITAL: periorbital findings normal EYELID: eyelids normal CONJUNCTIVA: Yes conjunctivae normal SCLERA: sclerae normal PUPIL: Yes Equal, round and reactive pupils present Neck/C-Spine: COMMON NORMALS: full ROM, no lymphadenopathy, supple, no meningeal signs and no JVD GENERAL: Yes normal visual inspection and Yes trachea midline Chest: COMMONS NORMALS: normal inspection of the chest and normal palpation of entire chest wall Resp: EFFORT & INSPECTION: Yes respiratory distress AUSCULTATION: rales, rhonchi, wheezes and diminished lung sounds Cardio: COMMON NORMALS: no JVD, regular rhythm, S1 normal heart sound present and S2 normal heart sound present RHYTHM: regular rhythm HEART SOUNDS: S1 normal heart sound present, S2 normal heart sound present, no click, no gallops, no murmurs and no rubs GI: COMMON NORMALS: Soft to palpation and No hepatosplenomegaly present PALPATION: Yes Soft to palpation, No Tenderness to palpation present (GI), No Guarding due to palpation present (GI), No Rigid due to palpation, Yes No hepatosplenomegaly present, No Hernia present, No Palpable mass present and No Pulsatile mass present : COMMON NORMALS: Yes no CVA tenderness BLADDER/KIDNEY EXAM: Yes no CVA tenderness EXTERNAL FEMALE EXAM: No Hernia present Back/Pelvis: COMMON NORMALS: no CVA tenderness, thoracic and lumbar spine normal to inspection, no thoracic nor lumbar tenderness and thoraco-lumbar ROM normal Extremity: COMMON NORMALS: normal to inspection, full ROM, capillary refill normal, no joint enlargement, no clubbing, cyanosis or edema and no calf tenderness Neuro: JONNA COMA SCALE: document GCS findings Connelly coma scale eye opening: Spontaneous Connelly coma scale verbal response: Sounds Jonna coma scale motor response: Obey commands Jonna coma scale total score: 12 COMMON NORMALS: moves all extremities, no focal motor deficits and no sensory deficits noted SENSORIUM/ORIENTATION: Yes alert and Yes lethargic MENINGEAL SIGNS: Yes no meningeal signs Skin: COMMON NORMALS: no wounds, turgor normal and no jaundice NARRATIVE SKIN EXAM: Bruising noted. GENERAL SKIN EXAM: turgor normal Course ED course: 929 -the patient's condition and state was discussed with her niece and DURABLE POWER OF COUNTING MACHINE OPERATOR for healthcare Jacki Barcenas. Ms. Barcenas says that the patient is expressed in the past that she would not want to be put on a ventilator, does not want CPR or any type of life-saving interventions. I discussed with her whether the BiPAP machine and medications and IVs were okay and she did state that would be okay. She stated she would come here to the hospital when she was able. Vital Signs: Vital signs: Vital Signs Temperature 97.7 F 07/20/20 09:40 Pulse Rate 113 H 07/20/20 15:05 Respiratory Rate 24 H 07/20/20 09:43 Blood Pressure 138/75 07/20/20 09:40 Pulse Oximetry 100 07/20/20 15:05 MDM - General Adult MDM Narrative: Medical decision making narrative: The case was reviewed with Dr. De La Cruz, he will come to see the patient in the ER. Patient is critically ill and he wants to discuss her status with the family. Lab Data: Attestation: I reviewed the patient's lab results. Labs: Lab Results 07/20/20 07/20/20 07/20/20 Range/Units 09:31 09:45 09:45 WBC 10.2 H (4.0-10.0) 10^3/ uL RBC 3.21 L (4.1-5.3) 10^6/u L Hgb 9.5 L (11.5-15.3) g/dL Hct 30.8 L (37.0-47.0) % MCV 96.0 (81-99) fL MCH 29.6 (28.0-34.0) pg MCHC 30.8 (30.0-36.0) g/dL RDW 16.8 H (12.1-15.1) % Plt Count 797 H (130-400) 10^3/c mm MPV 9.5 (7.4-10.4) fL Neut % (Auto) 81.5 % Lymph % (Auto) 7.2 % [place] % (Auto) 5.6 % Eos % (Auto) 4.3 % Baso % (Auto) 0.6 % Neut # (Auto) 8.34 H (1.8-7.7) 10^3/u L Lymph # (Auto) 0.7 L (0.8-4.8) 10^3/u L [place] # (Auto) 0.6 (0.2-0.9) 10^3/u L Eos # (Auto) 0.4 (0.0-0.8) 10^3/u L Baso # (Auto) 0.1 (0.0-0.1) 10^3/u L Nucleated RBC % (a uto) 0 % Nucleated RBCs # 0.0 /100WBC PT (12.1-14.9) SECO NDS INR (0.8-1.2) D-Dimer (0-0.59) ug/mIFE U Specimen Type Sample Site ABG pH (7.35-7.45) ABG pCO2 (35-45) mmHg ABG pO2 (80.0-100.0) mmH g ABG HCO3 (22-26) mmol/L ABG Base Excess (-2.0-2.0) mmol/ L Jose Carlos Test Hematocrit (37-47) % O2 Delivery Device FiO2 % Business Services Vice President ID Blood Gas Notified Time Sodium 131 L (136-145) mmol/L Potassium 5.6 H (3.5-5.1) mmol/L Chloride 93 L (98-107) mmol/L Carbon Dioxide 28 (22-29) mmol/L Anion Gap 15.6 (5-19) BUN 27 H (8-23) mg/dL Creatinine 0.5 (0.5-0.9) mg/dL GFR Calculation Not Reportable Glucose 167 H (65-115) mg/dL POC Glucose 163 (70-110) mg/dL Calculated Osmolal ity 281 L (285-295) mOsm/k g Lactic Acid (0.5-2.2) mmol/L Lactic Acid (Sepsi s) (0.5-2.2) mmol/L Calcium 8.9 (8.5-10.5) mg/dL Magnesium 1.9 (1.7-2.3) mg/dL Total Bilirubin 0.3 (0.15-1.2) mg/dL AST 34 H (0-32) U/L ALT 43 H (0-33) U/L Alkaline Phosphata se 311 H (35-105) IU/L Troponin T Baselin e (0-10) ng/L NT-Pro-B Natriuret Pep 686 H (0-450) pg/mL Total Protein 5.7 L (6.6-8.7) g/dL Albumin 3.1 L (3.5-5.2) g/dL Globulin 2.6 (1.3-4.6) g/dL Urine Color (Yellow) Urine Appearance (CLEAR) Urine pH (5-7) Ur Specific Gravit y (1.005-1.030) Urine Protein (Negative) Urine Glucose (UA) (Normal) Urine Ketones (Negative) Urine Blood (Negative) Urine Nitrate (Negative) Urine Bilirubin (Negative) Urine Urobilinogen (Negative) mg/dL Ur Leukocyte Aixa ase (Negative) Urine RBC (0-2) /hpf Urine WBC (0-5) /hpf Ur Squamous Epith Cells (0-5) /hpf Amorphous Sediment Urine Bacteria (NONE) /hpf Urine Mucus /hpf Influenza Type A A g (Negative) Influenza Type B A g (Negative) SARS-CoV-2 Ag (Rap id) (Negative) 07/20/20 07/20/20 07/20/20 Range/Units 09:45 09:45 09:45 WBC (4.0-10.0) 10^3/ uL RBC (4.1-5.3) 10^6/u L Hgb (11.5-15.3) g/dL Hct (37.0-47.0) % MCV (81-99) fL MCH (28.0-34.0) pg MCHC (30.0-36.0) g/dL RDW (12.1-15.1) % Plt Count (130-400) 10^3/c mm MPV (7.4-10.4) fL Neut % (Auto) % Lymph % (Auto) % [place] % (Auto) % Eos % (Auto) % Baso % (Auto) % Neut # (Auto) (1.8-7.7) 10^3/u L Lymph # (Auto) (0.8-4.8) 10^3/u L [place] # (Auto) (0.2-0.9) 10^3/u L Eos # (Auto) (0.0-0.8) 10^3/u L Baso # (Auto) (0.0-0.1) 10^3/u L Nucleated RBC % (a uto) % Nucleated RBCs # /100WBC PT 12.40 (12.1-14.9) SECO NDS INR 0.90 (0.8-1.2) D-Dimer (0-0.59) ug/mIFE U Specimen Type Sample Site ABG pH (7.35-7.45) ABG pCO2 (35-45) mmHg ABG pO2 (80.0-100.0) mmH g ABG HCO3 (22-26) mmol/L ABG Base Excess (-2.0-2.0) mmol/ L Jose Carlos Test Hematocrit (37-47) % O2 Delivery Device FiO2 % Business Services Vice President ID Blood Gas Notified Time Sodium (136-145) mmol/L Potassium (3.5-5.1) mmol/L Chloride (98-107) mmol/L Carbon Dioxide (22-29) mmol/L Anion Gap (5-19) BUN (8-23) mg/dL Creatinine (0.5-0.9) mg/dL GFR Calculation Glucose (65-115) mg/dL POC Glucose (70-110) mg/dL Calculated Osmolal ity (285-295) mOsm/k g Lactic Acid 2.1 (0.5-2.2) mmol/L Lactic Acid (Sepsi s) (0.5-2.2) mmol/L Calcium (8.5-10.5) mg/dL Magnesium (1.7-2.3) mg/dL Total Bilirubin (0.15-1.2) mg/dL AST (0-32) U/L ALT (0-33) U/L Alkaline Phosphata se (35-105) IU/L Troponin T Baselin e 134 H* (0-10) ng/L NT-Pro-B Natriuret Pep (0-450) pg/mL Total Protein (6.6-8.7) g/dL Albumin (3.5-5.2) g/dL Globulin (1.3-4.6) g/dL Urine Color (Yellow) Urine Appearance (CLEAR) Urine pH (5-7) Ur Specific Gravit y (1.005-1.030) Urine Protein (Negative) Urine Glucose (UA) (Normal) Urine Ketones (Negative) Urine Blood (Negative) Urine Nitrate (Negative) Urine Bilirubin (Negative) Urine Urobilinogen (Negative) mg/dL Ur Leukocyte Aixa ase (Negative) Urine RBC (0-2) /hpf Urine WBC (0-5) /hpf Ur Squamous Epith Cells (0-5) /hpf Amorphous Sediment Urine Bacteria (NONE) /hpf Urine Mucus /hpf Influenza Type A A g (Negative) Influenza Type B A g (Negative) SARS-CoV-2 Ag (Rap id) (Negative) 07/20/20 07/20/20 07/20/20 Range/Units 09:45 09:46 09:50 WBC (4.0-10.0) 10^3/ uL RBC (4.1-5.3) 10^6/u L Hgb (11.5-15.3) g/dL Hct (37.0-47.0) % MCV (81-99) fL MCH (28.0-34.0) pg MCHC (30.0-36.0) g/dL RDW (12.1-15.1) % Plt Count (130-400) 10^3/c mm MPV (7.4-10.4) fL Neut % (Auto) % Lymph % (Auto) % [place] % (Auto) % Eos % (Auto) % Baso % (Auto) % Neut # (Auto) (1.8-7.7) 10^3/u L Lymph # (Auto) (0.8-4.8) 10^3/u L [place] # (Auto) (0.2-0.9) 10^3/u L Eos # (Auto) (0.0-0.8) 10^3/u L Baso # (Auto) (0.0-0.1) 10^3/u L Nucleated RBC % (a uto) % Nucleated RBCs # /100WBC PT (12.1-14.9) SECO NDS INR (0.8-1.2) D-Dimer 6.90 H (0-0.59) ug/mIFE U Specimen Type Arterial Sample Site Radial, left ABG pH 7.41 (7.35-7.45) ABG pCO2 42.5 (35-45) mmHg ABG pO2 66.0 L (80.0-100.0) mmH g ABG HCO3 27.1 H (22-26) mmol/L ABG Base Excess 2.3 H (-2.0-2.0) mmol/ L Jose Carlos Test Pos Hematocrit 30.5 L (37-47) % O2 Delivery Device Bipap FiO2 50.0 % Business Services Vice President ID glc Blood Gas Notified Time 0750 Sodium (136-145) mmol/L Potassium (3.5-5.1) mmol/L Chloride (98-107) mmol/L Carbon Dioxide (22-29) mmol/L Anion Gap (5-19) BUN (8-23) mg/dL Creatinine (0.5-0.9) mg/dL GFR Calculation Glucose (65-115) mg/dL POC Glucose (70-110) mg/dL Calculated Osmolal ity (285-295) mOsm/k g Lactic Acid (0.5-2.2) mmol/L Lactic Acid (Sepsi s) (0.5-2.2) mmol/L Calcium (8.5-10.5) mg/dL Magnesium (1.7-2.3) mg/dL Total Bilirubin (0.15-1.2) mg/dL AST (0-32) U/L ALT (0-33) U/L Alkaline Phosphata se (35-105) IU/L Troponin T Baselin e (0-10) ng/L NT-Pro-B Natriuret Pep (0-450) pg/mL Total Protein (6.6-8.7) g/dL Albumin (3.5-5.2) g/dL Globulin (1.3-4.6) g/dL Urine Color (Yellow) Urine Appearance (CLEAR) Urine pH (5-7) Ur Specific Gravit y (1.005-1.030) Urine Protein (Negative) Urine Glucose (UA) (Normal) Urine Ketones (Negative) Urine Blood (Negative) Urine Nitrate (Negative) Urine Bilirubin (Negative) Urine Urobilinogen (Negative) mg/dL Ur Leukocyte Aixa ase (Negative) Urine RBC (0-2) /hpf Urine WBC (0-5) /hpf Ur Squamous Epith Cells (0-5) /hpf Amorphous Sediment Urine Bacteria (NONE) /hpf Urine Mucus /hpf Influenza Type A A g Negative (Negative) Influenza Type B A g Negative (Negative) SARS-CoV-2 Ag (Rap id) (Negative) 07/20/20 07/20/20 07/20/20 Range/Units 11:21 13:07 14:20 WBC (4.0-10.0) 10^3/ uL RBC (4.1-5.3) 10^6/u L Hgb (11.5-15.3) g/dL Hct (37.0-47.0) % MCV (81-99) fL MCH (28.0-34.0) pg MCHC (30.0-36.0) g/dL RDW (12.1-15.1) % Plt Count (130-400) 10^3/c mm MPV (7.4-10.4) fL Neut % (Auto) % Lymph % (Auto) % [place] % (Auto) % Eos % (Auto) % Baso % (Auto) % Neut # (Auto) (1.8-7.7) 10^3/u L Lymph # (Auto) (0.8-4.8) 10^3/u L [place] # (Auto) (0.2-0.9) 10^3/u L Eos # (Auto) (0.0-0.8) 10^3/u L Baso # (Auto) (0.0-0.1) 10^3/u L Nucleated RBC % (a uto) % Nucleated RBCs # /100WBC PT (12.1-14.9) SECO NDS INR (0.8-1.2) D-Dimer (0-0.59) ug/mIFE U Specimen Type Sample Site ABG pH (7.35-7.45) ABG pCO2 (35-45) mmHg ABG pO2 (80.0-100.0) mmH g ABG HCO3 (22-26) mmol/L ABG Base Excess (-2.0-2.0) mmol/ L Jose Carlos Test Hematocrit (37-47) % O2 Delivery Device FiO2 % Business Services Vice President ID Blood Gas Notified Time Sodium (136-145) mmol/L Potassium (3.5-5.1) mmol/L Chloride (98-107) mmol/L Carbon Dioxide (22-29) mmol/L Anion Gap (5-19) BUN (8-23) mg/dL Creatinine (0.5-0.9) mg/dL GFR Calculation Glucose (65-115) mg/dL POC Glucose (70-110) mg/dL Calculated Osmolal ity (285-295) mOsm/k g Lactic Acid (0.5-2.2) mmol/L Lactic Acid (Sepsi s) 2.5 H (0.5-2.2) mmol/L Calcium (8.5-10.5) mg/dL Magnesium (1.7-2.3) mg/dL Total Bilirubin (0.15-1.2) mg/dL AST (0-32) U/L ALT (0-33) U/L Alkaline Phosphata se (35-105) IU/L Troponin T Baselin e (0-10) ng/L NT-Pro-B Natriuret Pep (0-450) pg/mL Total Protein (6.6-8.7) g/dL Albumin (3.5-5.2) g/dL Globulin (1.3-4.6) g/dL Urine Color Straw (Yellow) Urine Appearance Hazy A (CLEAR) Urine pH 5 (5-7) Ur Specific Gravit y 1.015 (1.005-1.030) Urine Protein Neg (Negative) Urine Glucose (UA) Norm (Normal) Urine Ketones Negative (Negative) Urine Blood Trace H (Negative) Urine Nitrate Positive H (Negative) Urine Bilirubin Neg (Negative) Urine Urobilinogen 1 H (Negative) mg/dL Ur Leukocyte Aixa ase 2+ H (Negative) Urine RBC 0-4 H (0-2) /hpf Urine WBC >100 H (0-5) /hpf Ur Squamous Epith Cells 0-4 H (0-5) /hpf Amorphous Sediment Not Reportable Urine Bacteria 4+ H (NONE) /hpf Urine Mucus 2+ /hpf Influenza Type A A g (Negative) Influenza Type B A g (Negative) SARS-CoV-2 Ag (Rap id) Negative (Negative) Imaging Data^: CXR: Attestation: I personally reviewed and interpreted this imaging study as follows: My impression: No acute cardiopulmonary findings. CT Head: Radiologist's impression: [address] [address] [address] Scan Report Signed Patient: Bree Hernandes Unit #: [id number] : 1945 Age/Sex: 75 / F ADM Date: 07/20/20 Loc: ER Room/Bed: Attending Dr: Ordering Provider/Ordering MD: Becky Alfaro DO Date of Service: 07/20/20 Procedure(s): CT head wo con* [id number] Accession Number(s): [id number] Report Number: [id number] PROCEDURE INFORMATION: Exam: CT Head Without Contrast Exam date and time: 07/20/2020 12:38 PM Age: 75 years old Clinical indication: Altered mental status/memory loss TECHNIQUE: Imaging protocol: Computed tomography of the head without contrast. Radiation optimization: All CT scans at this facility use at least one of these dose optimization techniques: automated exposure control; mA and/or kV adjustment per patient size (includes targeted exams where dose is matched to clinical indication); or iterative reconstruction. COMPARISON: CT head wo con* [id number] 06/30/2020 6:35 PM RADIATION DOSE METRICS: Total DLP (mGy-cm): 650.86 FINDINGS: Brain: There is prominent decreased white matter density indicating chronic small vessel white matter ischemia. There is prominence of the ventricles and sulci due to chronic atrophy. There are areas of encephalomalacia in the frontal lobes, occipital lobes and bilateral cerebellum consistent with old infarcts. There is basal ganglia calcification. No intracranial hemorrhage, edema or other acute abnormalities are seen in the brain. There is no mass effect or midline shift Cerebral ventricles: The ventricles are prominent due to chronic atrophy.. Bones/joints: Unremarkable. No acute fracture. Paranasal sinuses: Visualized sinuses are unremarkable. No fluid levels. Mastoid air cells: There is fluid in the mastoid air cells.. Soft tissues: Unremarkable. CT/CT head wo con* [id number] IMPRESSION: 1. No acute intracranial abnormality. 2. Chronic atrophy and prominent chronic white matter ischemic changes. 3. Multiple old infarcts. Radiation Dose CTDIVOL = (mGy): DLP = 650.86 (mGy-cm) Dictated By: Alirio Dan Signed By: Alirio Dan Signed Date/Time: 07/20/201325 DD/ 25 CTA Chest with Abdomen/Pelvis: Radiologist's impression: [address] [address] [address] Scan Report Signed with Juan Patient: Bree Hernandes Unit #: [id number] : 1945 Age/Sex: 75 / F ADM Date: 07/20/20 Loc: ER Room/Bed: Attending Dr: Ordering Provider/Ordering MD: Becky Alfaro DO Date of Service: 07/20/20 Procedure(s): CT angio chest w abd pel w con Accession Number(s): [id number] Report Number: [id number]/CT angio chest w abd pel w con THIS REPORT CONTAINS FINDINGS THAT MAY BE CRITICAL TO PATIENT CARE. The findings were verbally communicated via telephone conference with Becky Alfaro at 1:22 PM BUDGET ANALYST on 07/20/2020. The findings were acknowledged and understood. Radiation Dose CTDIVOL = (mGy): DLP = 1024.96 1024.96 (mGy-cm) Addendum Dictated By: Alirio Dan Addendum Signed By: Alirio Dan Signed Date/Time: 07/20/20 1324 Addendum Cosigned By: PROCEDURE INFORMATION: Exam: CT Angiography Chest With Contrast Exam date and time: 07/20/2020 12:26 PM Age: 75 years old Clinical indication: Abdominal tenderness; Dyspnea and shortness of breath; Additional info: Dyspnea, hypoxia TECHNIQUE: Imaging protocol: Computed tomographic angiography of the chest with intravenous contrast. 3D rendering (Not supervised by radiologist): MIP and/or 3D reconstructed images were created by the technologist. Radiation optimization: All CT scans at this facility use at least one of these dose optimization techniques: automated exposure control; mA and/or kV adjustment per patient size (includes targeted exams where dose is matched to clinical indication); or iterative reconstruction. Contrast material: OMNI 350; Contrast volume: 95 ml; Contrast route: INTRAVENOUS (IV); COMPARISON: CT chest abd pel wo con 06/26/2020 6:40 PM RADIATION DOSE METRICS: Total DLP (mGy-cm): 1024.96 FINDINGS: Pulmonary arteries: There are small filling defects in segmental pulmonary arteries to the right middle lobe and left lingula consistent with multiple small pulmonary emboli. Aorta: There is calcification and tortuosity of the thoracic aorta. There is prominent atherosclerotic plaquing. There is ectasia of the descending thoracic aorta with a diameter of approximately 3.0 cm. There is no evidence of thoracic aortic dissection. Lungs: . There is a pleural based nodule along the posterior aspect of the right upper lobe that measures about 3.5 mm in diameter. It is seen on series 4/image 11. There are 2 noncalcified nodules in the superior segment of the right lower lobe measuring 6 mm and 5 mm in diameter. In the periphery of the lingula there is an 8 mm noncalcified pleural base nodule which is seen on series 601/image 12. There is bibasilar atelectasis. There is a small left pleural effusion. No pneumothorax is seen. Pleural space: There is a small left pleural effusion. Heart: The patient has undergone coronary bypass surgery. There is calcification of the [place] coronary arteries. The heart is not significantly enlarged. Lymph nodes: There are a few mildly prominent nonspecific lymph nodes in the mediastinum. Stomach and bowel: There is a prominent large hiatal hernia containing a large portion of the stomach. Bones/joints: Degenerative changes are present in the spine with joint space narrowing sclerosis and osteophyte formation. Soft tissues: Unremarkable. IMPRESSION: 1. Small emboli in right right middle lobe and left lingula segmental pulmonary arteries. 2. Bilateral noncalcified pulmonary nodules.For patients at low risk (minimal or absent history of smoking and of other known risk factors), recommend CT Chest at 3-6 months, then consider CT Chest at 18-24 months. For patients at high risk (history of smoking or of other known risk factors), recommend CT Chest at 3-6 months, then CT Chest at 18-24 months. (Reference: Autumn) 3. Large hiatal hernia. REFERENCES: Autumn Davis, et al. Guidelines for Management of Incidental Pulmonary Nodules Detected on CT Images: From the Fleischner Society 2017. Radiology. 2017;284(1):228-243. PROCEDURE INFORMATION: Exam: CT Abdomen And Pelvis With Contrast Exam date and time: 07/20/2020 12:26 PM Age: 75 years old Clinical indication: Abdominal tenderness; Dyspnea and shortness of breath; Additional info: Dyspnea, hypoxia TECHNIQUE: Imaging protocol: Computed tomography of the abdomen and pelvis with intravenous contrast. Radiation optimization: All CT scans at this facility use at least one of these dose optimization techniques: automated exposure control; mA and/or kV adjustment per patient size (includes targeted exams where dose is matched to clinical indication); or iterative reconstruction. Contrast material: OMNI 350; Contrast volume: 95 ml; Contrast route: INTRAVENOUS (IV); COMPARISON: CT chest abd pel wo con 06/26/2020 6:40 PM RADIATION DOSE METRICS: Total DLP (mGy-cm): 1024.96 FINDINGS: Liver: Normal. No mass. Gallbladder and bile ducts: Normal. No calcified stones. No ductal dilation. Pancreas: Normal. No ductal dilation. Spleen: Normal. No splenomegaly. Adrenal glands: Normal. No mass. Kidneys and ureters: There is bilateral renal scarring and atrophy. A benign appearing cyst is present in the left kidney. Stomach and bowel: There is a prominent amount of stool in the colon consistent with constipation. There is no small bowel obstruction or dilatation. Appendix: No evidence of appendicitis. Intraperitoneal space: Unremarkable. No free air. No significant fluid collection. Vasculature: There is prominent atherosclerotic calcification and plaquing in the abdominal aorta and iliac arteries. There is an infrarenal abdominal aortic aneurysm measuring approximately 3.5 cm in greatest diameter. There is thick mural thrombus. There is prominent calcification of the iliac arteries and stenosis cannot be excluded. There is also calcification of the renal arteries suggesting stenosis. Lymph nodes: Unremarkable. No enlarged lymph nodes. Urinary bladder: A Stone catheter is present in the collapsed urinary bladder. Reproductive: Unremarkable as visualized. Bones/joints: There is prominent DJD in the lumbar spine.. No acute fracture. Soft tissues: Unremarkable. CT/CT angio chest w abd pel w con IMPRESSION: 1. Infrarenal abdominal aortic aneurysm measuring 3.5 cm in diameter. 2. Prominent atherosclerotic aortic calcifications. Stenoses in the proximal abdominal aorta, origins of the mesenteric and renal arteries and iliac arteries are possible. 3. Bilateral renal scarring and atrophy. 4. Constipation. Radiation Dose CTDIVOL = (mGy): DLP = 1024.96 1024.96 (mGy-cm) Dictated By: Alirio Dan Signed By: Alirio Dan Signed Date/Time: 07/20/201323 DD/ 132 EKG Data^: EKG 1: Attestation: I personally reviewed and interpreted this EKG as follows: EKG interpretation date: 07/20/20 EKG interpretation time: 09:26 Interpretation: Sinus tachycardia at 129 beats a minute, no blocks, normal intervals, no acute ST or T wave changes. Computer generated interpretation: Chest X-Ray 07/20/20 10:01 IMPRESSION: Large hiatal hernia. No acute cardiopulmonary abnormality. Chest/Abdomen/Pelvis CT 07/20/20 11:41 IMPRESSION: 1. Infrarenal abdominal aortic aneurysm measuring 3.5 cm in diameter. 2. Prominent atherosclerotic aortic calcifications. Stenoses in the proximal abdominal aorta, origins of the mesenteric and renal arteries and iliac arteries are possible. 3. Bilateral renal scarring and atrophy. 4. Constipation. Radiation Dose CTDIVOL = (mGy): DLP = 1024.96~1024.96 (mGy-cm) ADDENDUM: 07/20/20 1324 THIS REPORT CONTAINS FINDINGS THAT MAY BE CRITICAL TO PATIENT CARE. The findings were verbally communicated via telephone conference with Becky Alfaro at 1:22 PM BUDGET ANALYST on 07/20/2020. The findings were acknowledged and understood. Radiation Dose CTDIVOL = (mGy): DLP = 1024.96~1024.96 (mGy-cm) Head CT 07/20/20 11:41 IMPRESSION: 1. No acute intracranial abnormality. 2. Chronic atrophy and prominent chronic white matter ischemic changes. 3. Multiple old infarcts. Radiation Dose CTDIVOL = (mGy): DLP = 650.86 (mGy-cm) EKG 2: Attestation: I personally reviewed and interpreted this EKG as follows: EKG interpretation date: 07/20/20 EKG interpretation time: 13:09 Interpretation: Sinus tachycardia at 128 beats a minute, no blocks, normal intervals, T waves inverted 1, aVL, V2. Computer generated interpretation: Chest X-Ray 07/20/20 10:01 IMPRESSION: Large hiatal hernia. No acute cardiopulmonary abnormality. Chest/Abdomen/Pelvis CT 07/20/20 11:41 IMPRESSION: 1. Infrarenal abdominal aortic aneurysm measuring 3.5 cm in diameter. 2. Prominent atherosclerotic aortic calcifications. Stenoses in the proximal abdominal aorta, origins of the mesenteric and renal arteries and iliac arteries are possible. 3. Bilateral renal scarring and atrophy. 4. Constipation. Radiation Dose CTDIVOL = (mGy): DLP = 1024.96~1024.96 (mGy-cm) ADDENDUM: 07/20/20 1324 THIS REPORT CONTAINS FINDINGS THAT MAY BE CRITICAL TO PATIENT CARE. The findings were verbally communicated via telephone conference with Becky Alfaro at 1:22 PM BUDGET ANALYST on 07/20/2020. The findings were acknowledged and understood. Radiation Dose CTDIVOL = (mGy): DLP = 1024.96~1024.96 (mGy-cm) Head CT 07/20/20 11:41 IMPRESSION: 1. No acute intracranial abnormality. 2. Chronic atrophy and prominent chronic white matter ischemic changes. 3. Multiple old infarcts. Radiation Dose CTDIVOL = (mGy): DLP = 650.86 (mGy-cm) Discharge Plan Discharge Patient Disposition: Admitted As Inpatient Clinical Impression: Pulmonary emboli, Sepsis, Acute UTI Condition: Stable Prescriptions: No Action acetaminophen [Tylenol] 325 mg capsule 325 - 650 mg feeding tube Q6H PRN (Reason: Pain) RF: 0 levothyroxine 25 mcg capsule 25 mcg feeding tube QAM RF: 0 magnesium hydroxide [Milk of Magnesia] 400 mg/5 mL Suspension 30 ml PO DAILY PRN (Reason: Constipation) RF: 0 bisacodyl 10 mg Suppository 10 mg RI DAILY PRN (Reason: Constipation) RF: 0 ascorbic acid (vitamin C) [Vitamin C] 500 mg Tablet 500 mg ng-tube DAILY Qty: 20 RF: 0 morphine concentrate 100 mg/5 mL (20 mg/mL) Solution See Rx Instructions .ROUTE .COMPLEX RF: 0 loperamide 2 mg Tablet 2 mg feeding tube QID PRN (Reason: Diarrhea) RF: 0 Therems Tablet 1 tab feeding tube DAILY RF: 0 lorazepam [Lorazepam Intensol] 2 mg/mL Concentrate See Rx Instructions .ROUTE .COMPLEX RF: 0 [place] 5-325 mg tablet 1 tab feeding tube Q6H PRN (Reason: pain) RF: 0 aspirin 81 mg tablet,delayed release (DR/EC) 81 mg feeding tube DAILY RF: 0 Referrals: Lizeth Britton MD [Primary Care Provider] - Coding Level of Care Code ED Curing Press Maintainer for Chg Fwd Exam Comprehensive
[2020-07-20 09:34] LABS: Glucose Point of Care 163 mg/dL (70-110)
[2020-07-20] MEDS: ipratropium-albuterol 3 mL Neb 9 ML INHALATION (09:40)
[2020-07-20 09:55] LABS: ABG PCO2 42.5 mmHg (35-45); ABG PH Result 7.41 (7.35-7.45); Arterial Blood Gas Hematocrit 30.5 % (37-47); Base Excess ABG 2.3 mmol/L (-2.0-2.0); Blood Gas Allen Test Pos; Blood Gas Operator Identificat glc; Blood Gas Sample Site Radial, left; Blood Gas Sample Type Arterial; HCO3 ABG 27.1 mmol/L (22-26); Oxygen Device BIPAP
--- NOTE | 2020-07-20 10:01 | XRR_ITS ---
PROCEDURE INFORMATION: Exam: XR Chest, 1 View Exam date and time: 07/20/2020 10:02 AM Age: 75 years old Clinical indication: Shortness of breath; Additional info: Altered mental status TECHNIQUE: Imaging protocol: XR of the chest Views: 1 view. COMPARISON: CR XR chest 1V portable [id number] 06/28/2020 6:46 AM FINDINGS: Lungs: Unremarkable. No consolidation. Pleural space: Unremarkable. No pleural effusion. No pneumothorax. Heart/Mediastinum: Clips and sutures are present from cardiovascular surgery. A large hiatal hernia is present. There is calcification in the aorta. The heart is not enlarged. Bones/joints: Unremarkable. XR/XR chest 1V portable [id number] IMPRESSION: Large hiatal hernia. No acute cardiopulmonary abnormality.
[2020-07-20 10:16] LABS: Basophils # 0.1 10^3/uL (0.0-0.1); Basophils % 0.6 %; Eosinophils # 0.4 10^3/uL (0.0-0.8); Eosinophils % 4.3 %; Hematocrit 30.8 % (37.0-47.0); Hemoglobin 9.5 g/dL (11.5-15.3); Lymphocytes # 0.7 10^3/uL (0.8-4.8); Lymphocytes % 7.2 %; Mean Corpuscular HGB Conc 30.8 g/dL (30.0-36.0); Mean Corpuscular Hemoglobin 29.6 pg (28.0-34.0); Mean Platelet Volume 9.5 fL (7.4-10.4); Monocytes # 0.6 10^3/uL (0.2-0.9); Monocytes % 5.6 %; Neutrophils # 8.34 10^3/uL (1.8-7.7); Neutrophils % 81.5 %; Nucleated Red Blood Cells % 0 %; Platelet Count 797 10^3/cmm (130-400); Red Blood Count 3.21 10^6/uL (4.1-5.3); Red Cell Distribution Width 16.8 % (12.1-15.1); White Blood Count 10.2 10^3/uL (4.0-10.0)
[2020-07-20 11:10] LABS: Influenza A by IFA Negative (Negative); Influenza B by IFA Negative (Negative)
--- NOTE | 2020-07-20 11:21 | ECG_ITS ---
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 Measurements Intervals [place] Rate: 128 P: 34 SC: 168 QRS: 24 QRSD: 73 T: 90 QT: 309 QTc: 452 Interpretive Statements SINUS TACHYCARDIA ANTEROSEPTAL MYOCARDIAL INFARCTION , OF INDETERMINATE AGE [40+ ms Q WAVE IN V1-V4] MODERATE T-WAVE ABNORMALITY, CONSIDER LATERAL ISCHEMIA [-0.1+ mV T WAVE IN I/aVL/V5/V6] Compared to ECG 07/20/2020 09:26:45 Myocardial infarct finding now present T-wave abnormality now present Possible ischemia now present Electronically Signed On 07-20-2020 18:54:39 RAIL FILLER by Bolivar Nichols M.D. [id number]
[2020-07-20 11:32] LABS: Lactic Sepsis W/Reflex 2.1 mmol/L (0.5-2.2)
[2020-07-20 11:37] LABS: Alanine Aminotransferase 43 U/L (0-33); Albumin Level 3.1 g/dL (3.5-5.2); Alkaline Phosphatase 311 IU/L (35-105); Anion Gap 15.6 (5-19); Aspartate Amino Transferase 34 U/L (0-32); Blood Urea Nitrogen 27 mg/dL (8-23); Calcium 8.9 mg/dL (8.5-10.5); Carbon Dioxide 28 mmol/L (22-29); Chloride 93 mmol/L (98-107); Globulin 2.6 g/dL (1.3-4.6); Glucose 167 mg/dL (65-115); Magnesium 1.9 mg/dL (1.7-2.3); NT Pro B Type Natriuretic Pept 686 pg/mL (0-450); Osmolality Calculated 281 mOsm/kg (285-295); Potassium 5.6 mmol/L (3.5-5.1); Sodium 131 mmol/L (136-145); Total Bilirubin 0.3 mg/dL (0.15-1.2); Total Protein 5.7 g/dL (6.6-8.7)
--- NOTE | 2020-07-20 11:41 | CTR_ITS ---
PROCEDURE INFORMATION: Exam: CT Head Without Contrast Exam date and time: 07/20/2020 12:38 PM Age: 75 years old Clinical indication: Altered mental status/memory loss TECHNIQUE: Imaging protocol: Computed tomography of the head without contrast. Radiation optimization: All CT scans at this facility use at least one of these dose optimization techniques: automated exposure control; mA and/or kV adjustment per patient size (includes targeted exams where dose is matched to clinical indication); or iterative reconstruction. COMPARISON: CT head wo con* [id number] 06/30/2020 6:35 PM RADIATION DOSE METRICS: Total DLP (mGy-cm): 650.86 FINDINGS: Brain: There is prominent decreased white matter density indicating chronic small vessel white matter ischemia. There is prominence of the ventricles and sulci due to chronic atrophy. There are areas of encephalomalacia in the frontal lobes, occipital lobes and bilateral cerebellum consistent with old infarcts. There is basal ganglia calcification. No intracranial hemorrhage, edema or other acute abnormalities are seen in the brain. There is no mass effect or midline shift Cerebral ventricles: The ventricles are prominent due to chronic atrophy.. Bones/joints: Unremarkable. No acute fracture. Paranasal sinuses: Visualized sinuses are unremarkable. No fluid levels. Mastoid air cells: There is fluid in the mastoid air cells.. Soft tissues: Unremarkable. CT/CT head wo con* [id number] IMPRESSION: 1. No acute intracranial abnormality. 2. Chronic atrophy and prominent chronic white matter ischemic changes. 3. Multiple old infarcts. Radiation Dose CTDIVOL = (mGy): DLP = 650.86 (mGy-cm)
--- NOTE | 2020-07-20 11:41 | CTR_ITS ---
PROCEDURE INFORMATION: Exam: CT Angiography Chest With Contrast Exam date and time: 07/20/2020 12:26 PM Age: 75 years old Clinical indication: Abdominal tenderness; Dyspnea and shortness of breath; Additional info: Dyspnea, hypoxia TECHNIQUE: Imaging protocol: Computed tomographic angiography of the chest with intravenous contrast. 3D rendering (Not supervised by radiologist): MIP and/or 3D reconstructed images were created by the technologist. Radiation optimization: All CT scans at this facility use at least one of these dose optimization techniques: automated exposure control; mA and/or kV adjustment per patient size (includes targeted exams where dose is matched to clinical indication); or iterative reconstruction. Contrast material: OMNI 350; Contrast volume: 95 ml; Contrast route: INTRAVENOUS (IV); COMPARISON: CT chest abd pel wo con 06/26/2020 6:40 PM RADIATION DOSE METRICS: Total DLP (mGy-cm): 1024.96 FINDINGS: Pulmonary arteries: There are small filling defects in segmental pulmonary arteries to the right middle lobe and left lingula consistent with multiple small pulmonary emboli. Aorta: There is calcification and tortuosity of the thoracic aorta. There is prominent atherosclerotic plaquing. There is ectasia of the descending thoracic aorta with a diameter of approximately 3.0 cm. There is no evidence of thoracic aortic dissection. Lungs: . There is a pleural based nodule along the posterior aspect of the right upper lobe that measures about 3.5 mm in diameter. It is seen on series 4/image 11. There are 2 noncalcified nodules in the superior segment of the right lower lobe measuring 6 mm and 5 mm in diameter. In the periphery of the lingula there is an 8 mm noncalcified pleural base nodule which is seen on series 601/image 12. There is bibasilar atelectasis. There is a small left pleural effusion. No pneumothorax is seen. Pleural space: There is a small left pleural effusion. Heart: The patient has undergone coronary bypass surgery. There is calcification of the [place] coronary arteries. The heart is not significantly enlarged. Lymph nodes: There are a few mildly prominent nonspecific lymph nodes in the mediastinum. Stomach and bowel: There is a prominent large hiatal hernia containing a large portion of the stomach. Bones/joints: Degenerative changes are present in the spine with joint space narrowing sclerosis and osteophyte formation. Soft tissues: Unremarkable. IMPRESSION: 1. Small emboli in right right middle lobe and left lingula segmental pulmonary arteries. 2. Bilateral noncalcified pulmonary nodules.For patients at low risk (minimal or absent history of smoking and of other known risk factors), recommend CT Chest at 3-6 months, then consider CT Chest at 18-24 months. For patients at high risk (history of smoking or of other known risk factors), recommend CT Chest at 3-6 months, then CT Chest at 18-24 months. (Reference: Autumn) 3. Large hiatal hernia. REFERENCES: Autumn Davis et al. Guidelines for Management of Incidental Pulmonary Nodules Detected on CT Images: From the Fleischner Society 2017. Radiology. 2017;284(1):228-243. PROCEDURE INFORMATION: Exam: CT Abdomen And Pelvis With Contrast Exam date and time: 07/20/2020 12:26 PM Age: 75 years old Clinical indication: Abdominal tenderness; Dyspnea and shortness of breath; Additional info: Dyspnea, hypoxia TECHNIQUE: Imaging protocol: Computed tomography of the abdomen and pelvis with intravenous contrast. Radiation optimization: All CT scans at this facility use at least one of these dose optimization techniques: automated exposure control; mA and/or kV adjustment per patient size (includes targeted exams where dose is matched to clinical indication); or iterative reconstruction. Contrast material: OMNI 350; Contrast volume: 95 ml; Contrast route: INTRAVENOUS (IV); COMPARISON: CT chest abd pel wo con 06/26/2020 6:40 PM RADIATION DOSE METRICS: Total DLP (mGy-cm): 1024.96 FINDINGS: Liver: Normal. No mass. Gallbladder and bile ducts: Normal. No calcified stones. No ductal dilation. Pancreas: Normal. No ductal dilation. Spleen: Normal. No splenomegaly. Adrenal glands: Normal. No mass. Kidneys and ureters: There is bilateral renal scarring and atrophy. A benign appearing cyst is present in the left kidney. Stomach and bowel: There is a prominent amount of stool in the colon consistent with constipation. There is no small bowel obstruction or dilatation. Appendix: No evidence of appendicitis. Intraperitoneal space: Unremarkable. No free air. No significant fluid collection. Vasculature: There is prominent atherosclerotic calcification and plaquing in the abdominal aorta and iliac arteries. There is an infrarenal abdominal aortic aneurysm measuring approximately 3.5 cm in greatest diameter. There is thick mural thrombus. There is prominent calcification of the iliac arteries and stenosis cannot be excluded. There is also calcification of the renal arteries suggesting stenosis. Lymph nodes: Unremarkable. No enlarged lymph nodes. Urinary bladder: A Stone catheter is present in the collapsed urinary bladder. Reproductive: Unremarkable as visualized. Bones/joints: There is prominent DJD in the lumbar spine.. No acute fracture. Soft tissues: Unremarkable. CT/CT angio chest w abd pel w con IMPRESSION: 1. Infrarenal abdominal aortic aneurysm measuring 3.5 cm in diameter. 2. Prominent atherosclerotic aortic calcifications. Stenoses in the proximal abdominal aorta, origins of the mesenteric and renal arteries and iliac arteries are possible. 3. Bilateral renal scarring and atrophy. 4. Constipation. Radiation Dose CTDIVOL = (mGy): DLP = 1024.96~1024.96 (mGy-cm)
[2020-07-20 11:46] LABS: Troponin(5th) Baseline 134 ng/L (0-10)
[2020-07-20 11:48] LABS: Reflex Lactate Order REFLEX LACTIC ORDERD
[2020-07-20 12:47] LABS: Add Urine Microscopic? YES; Bilirubin Urine Neg (Negative); Blood Urine Trace (Negative); Glucose Urine UA Norm (Normal); Ketones Urine Negative (Negative); Leukocyte Esterase Urine 2+ (Negative); Nitrate Urine Positive (Negative); Protein Urine Neg (Negative); Specific Gravity, Urine 1.015 (1.005-1.030); Urine Appearance Hazy (CLEAR); Urine Color Straw (Yellow); Urobilinogen Urine 1 mg/dL (Negative); pH Urine 5 (5-7)
[2020-07-20 12:51] LABS: RBC Urine 0-4 /hpf (0-2); Squamous Epithelial Cell Urine 0-4 /hpf (0-5); WBC Urine >100 /hpf (0-5)
[2020-07-20 12:52] LABS: Add Urine Culture? Yes; Bacteria Urine 4+ /hpf; Mucus Urine 2+ /hpf
[2020-07-20] MEDS: iohexol 350 mg/mL 100 mL Btl IV (12:54)
[2020-07-20 14:36] LABS: SARS Covid-2 Antigen Negative (Negative)
[2020-07-20 15:26] LABS: Lactic Acid level (Lactate) 2.5 mmol/L (0.5-2.2)
--- NOTE | 2020-07-20 15:57 | P.HP_ITS ---
Providers/Chief Complaint Primary Care Provider: Lizeth Britton MD Chief Complaint: DECREASED LOC History of Present Illness Bree Hernandes is a 75 year old female with Alzheimer's dementia, alert to self, two-person assist, PEG tube dependent, DNR/DNI recent hospital admission and discharge for sepsis secondary to pneumonia and COVID-19 and hypernatremia and dehydration, history of obstructive uropathy, UTI and pyelonephritis who presents to [facility] due to hypoxia, respiratory distress, desaturations In the ER, white blood cell count 10.2, hemoglobin 9.5, D-dimer 6.9, pH 7.41, PO2 66 on 50% BiPAP, sodium 131, troponin I 34, BNP 686, UA indicated of a UTI with positive nitrates, WBC, blood, CT angiogram of the chest shows small emboli in the right middle lobe, left lingula, infrarenal abdominal aortic aneurysm, head CT showing no acute intracranial abnormality, but does show encephalomalacia in the frontal lobes, septals, bilateral cerebellum, hospitalist team was called for admission Upon my arrival to patient's room, she was on the BiPAP, not responding to sternal rub, she was only moaning in pain, not following any commands, in my opinion suffering, I advised RT to place her on nasal cannula, I had a discussion with Jacki, patient's niece, Jacki tells me that patient was not , does not have any children, does not have a DPOA, she is her decision-maker in addition to Gracie, she is related to her on her mother side, the only other person involved in her care is Gracie who is her other niece. I advised Jacki, that patient has Alzheimer's dementia, has quite a poor func tional status, PEG tube dependent, has developed now pulmonary emboli, likely recurrent aspiration pneumonia, recurrent UTI,NSTEMI, she is suffering. The likelihood of meaningful recovery is fairly unlikely, she has a high risk of morbidity and mortality, high risk of rehospitalizations, high risk of aggressive interventions, some might say that intervention she is already received are's quite aggressive given her status, she is suffering, she is in pain. I have strongly recommended for her to consider comfort care, concern to do antibiotics and blood thinners, but the likelihood of her having a meaningful recovery with these interventions are fairly unlikely. More in fact she will likely suffer complications from the blood thinners for example, risk of bleeding given her age her hemoglobin. In addition all these interventions are fairly temporary, she she has a future risk of high risk of aspiration events and future risk of high risk of sepsis, high morbidity mortality and ultimately high risk of suffering. I advised her that my goal is to not give up on her but is to emphasize quality of life, emphasized for her not to suffer, emphasized for her not to be in pain. As in my opinion right now she is suffering, she is in pain. Jacki voiced understanding, all questions answered, she is agreeable on hospice, but is not ready to fully say yes as she wants me to discuss it also with Gracie, Gracie will call me later on this afternoon, Jacki does tell me that the patient is DNR/DNI, she does not want aggressive interventions, for now she is okay with blood thinners, okay with antibiotics Review of Systems General: Reports: ROS unobtainable due to medical condition Medications/Allergies Home Medications Medication Instructions Recorded Confirmed Last Taken Type acetaminophen 325 mg capsule 325 - 650 mg FEEDING TUBE Q6H PRN 09/11/19 07/20/20 06/24/20 History levothyroxine 25 mcg capsule 25 mcg FEEDING TUBE QAM cap 09/11/19 07/20/20 07/20/20 History bisacodyl 10 mg FL DAILY PRN 06/26/20 07/20/20 Unknown History magnesium hydroxide [Milk of 30 ml PO DAILY PRN 06/26/20 07/20/20 07/01/19 History Magnesia] ascorbic acid (vitamin C) [Vitamin 500 mg NG-TUBE DAILY #20 tab 07/09/20 07/20/20 07/20/20 Rx C] aspirin 81 mg FEEDING TUBE DAILY 07/20/20 07/20/20 07/20/20 History hydrocodone-acetaminophen [[place]] 1 tab FEEDING TUBE Q6H PRN 07/20/20 07/20/20 07/20/20 History loperamide 2 mg FEEDING TUBE QID PRN 07/20/20 07/20/20 Unknown History lorazepam [Lorazepam Intensol] See Rx Instructions .ROUTE .COMPLEX 07/20/20 07/20/20 07/20/20 08:30 History morphine concentrate See Rx Instructions .ROUTE .COMPLEX 07/20/20 07/20/20 07/20/20 08:30 History therapeutic multivitamin [Therems] 1 tab FEEDING TUBE DAILY 07/20/20 07/20/20 07/20/20 History Allergies Allergy/AdvReac Type Severity Reaction Status Date / Time procaine [From Novocain] Allergy NA Verified 07/20/20 11:28 PFSH Acute PFSH: Medical History (Updated 07/20/20 @ 16:18 by Slade De La Cruz MD) Calculus of left ureter Cystitis cystica History of kidney stones Obstructive pyelonephritis Urinary tract infection, site not specified Surgical History (Updated 07/20/20 @ 16:14 by Slade De La Cruz MD) S/P percutaneous endoscopic gastrostomy (PEG) tube placement Family History Family/Other Diabetes Mother No problems noted. Father No problems noted. Social History Smoking and tobacco status: unknown if ever smoked Alcohol intake: never Marital status: Current occupational status: retired Vitals/I&O/Wt Last Vital Signs Temp 97.7 F 07/20/20 09:40 Pulse 113 H 07/20/20 15:05 Resp 24 H 07/20/20 09:43 BP 138/75 07/20/20 09:40 Pulse Ox 100 07/20/20 15:05 Weight last 48 hrs Weight 47.627 kg Physical Exam Const: EXAM LIMITATIONS: altered mental status GENERAL APPEARANCE: lethargic, ill appearing and diaphoretic NUTRITIONAL APPEARANCE: thin ORIE NTATION/CONSCIOUSNESS: not awake, not oriented to person, not oriented to place and not oriented to time HENMT: COMMON NORMALS: normocephalic HEAD & SCALP: normocephalic Eye: COMMON NORMALS: Equal, round and reactive pupils present PUPIL: Yes Equal, round and reactive pupils present Neck/C-Spine: COMMON NORMALS: full ROM, no lymphadenopathy, no JVD and Thyroid normal THYROID: Thyroid normal Lymph: LYMPHATIC: no lymphadenopathy noted Resp: EFFORT & INSPECTION: Yes tachypneic and Yes retractions AUSCULTATION: rhonchi and wheezes Cardio: COMMON NORMALS: no JVD, S1 normal heart sound present, S2 normal heart sound present, No gallops present (Cardio), No clicks present (Cardio) and No murmurs present (Cardio) RATE: tachycardic RHYTHM: regular rhythm HEART SOUNDS: S1 normal heart sound present and S2 normal heart sound present GI: COMMON NORMALS: Normal to inspection, nondistended, normoactive bowel sounds present, Soft to palpation, non-tender and No hepatosplenomegaly present PALPATION: Yes Soft to palpation and Yes No hepatosplenomegaly present OTHE R: PEG tube in place Extremity: COMMON NORMALS: no pedal edema Neuro: COMMON NORMALS: negative for patient oriented x3 Urinary Catheter Management^: Stone: Cath Placed During This Visit: no Reason for Continuing Indwelling Catheter: Other Data : 07/20/20 09:45 07/20/20 09:45 Micro: Microbiology 07/20/20 14:20 Blood Culture - Preliminary Blood SPECIMEN COLLECTED 07/20/20 09:45 Blood Culture - Preliminary Blood SPECIMEN COLLECTED A&P Assessment and plan (1) AMS (altered mental status): -Secondary to acute hypoxic respiratory failure, UTI, aspiration pneumonia, pulmonary emboli, hyponatremia, NSTEMI -CT of the head shows areas of encephalomalacia in the frontal lobes, septal lobes, bilateral cerebellum consistent with old infarcts -Has Alzheimer's dementia, alert to self at baseline, two-person assist, PEG tube dependent -Currently not responding to sternal rub, moaning, suffering Status: Acute (2) Acute respiratory failure with hypoxia: -Secondary to aspiration pneumonia, small emboli in the right middle lobe, left lingula, with history of COVID-19 -With sepsis, sepsis criteria met with pulse 113, respiratory 24, was on BiPAP, lactic acid 2.5, white blood cell count 10.2, platelet count 797 Plan: -Would admit to general medical floors, under COVID-19 precautions, rapid antigen is negative, I do not want her to undergo nasal Covid test which is fairly painful -In my opinion blood thinners are quite invasive given her current status, high risk of bleeding, however family at this point wants us to continue, Eliquis 10 mg twice daily -Primaxin for aspiration pneumonia, UTI -We will discuss with Gracie,(I already spoke to Jacki who is agreement with comfort care), if Gracie agrees, will proceed to comfort care and or hospice -Hopefully discharged back to the correction on hospice -DNR/DNI -SCDs and Eliquis for DVT prophylaxis Status: Acute (3) Pulmonary emboli: Status: Acute (4) UTI (urinary tract infection): Follow urine cultures, Primaxin for antibiotics as above Status: Acute (5) NSTEMI (non-ST elevated myocardial infarction): -Baseline troponin I 34, 120-minute pending -EKG shows no acute ST-T wave changes, sinus tachycardia -Echo on last admission showed moderate to severe LVH, EF of 77%, grade 1 out of 4 diastolic dysfunction -Continue to monitor troponins, serial EKGs, telemetry monitoring -Likely type II NSTEMI, for supply demand ischemia from respiratory failure as above, but cannot rule out underlying cardiac etiology -Is on aspirin, statin -Eliquis -Family does not want aggressive interventions Status: Acute (6) COVID-19: Tested + 06/27/2020 on PCR, her rapid at that time was negative Rapid is again negative Keep COVID-19 precautions Status: Acute (7) Hyponatremia: Status: Acute (8) Lactic acidosis: Status: Acute (9) Sepsis: Status: Acute (10) CVA (cerebral vascular accident): Status: Acute (11) AD (Alzheimer's disease): Status: Acute Attestations Medical Necessity Statement*: She requires hospitalization up, outpatient with observation, for acute respiratory failure secondary pulmonary emboli, pneumonia, UTI, NSTEMI, hopefully proceeding to comfort Coding Level of Care Code Acute [facility] Nurse for [facility] Fwd Diagnoses AMS (altered mental status) R41.82 Acute respiratory failure with hypoxia J96.01 Pulmonary emboli I26.99 UTI (urinary tract infection) N39.0 NSTEMI (non-ST elevated myocardial infarction) I21.4 COVID-19 U07.1 Hyponatremia E87.1 Lactic acidosis E87.2 Sepsis A41.9 CVA (cerebral vascular accident) I63.9 AD (Alzheimer's disease) G30.9; F02.80
[2020-07-20 17:10] LABS: Troponin 5 2HR Delta 23 ABS# (0-10)
[2020-07-20 17:10] LABS: Troponin 5 6HR 153.5 ng/L (0-10); Troponin 5 6HR Delta 19.5 ng/L (0-12)
--- NOTE | 2020-07-20 17:14 | PC.NURSE ---
2 hour Trop 157, Delta-23 6 hour [id number], Delta-19.5
[2020-07-20] MEDS: sodium chloride 0.9% 1,000 ML 75 ML IV (18:40)
[2020-07-20] MEDS: scopolamine 1.5 Patch 1 PATCH TRANSDERMA (21:57)
[2020-07-21] VITALS (10 sets, daily range): BP systolic 117–148; BP diastolic 70–84; PULSE 61–95; RESP 16–22; TEMP 36.3–36.7; O2SAT 96–100
[2020-07-21] MEDS: levothyroxine 25 mcg Tablet OG-TUBE (06:15)
[2020-07-21] MEDS: sodium chloride 0.9% 1,000 ML 75 ML IV (07:54)
--- NOTE | 2020-07-21 07:54 | PC.RESP ---
Pt unable to use inhalers.
[2020-07-21] MEDS: pantoprazole DR 40 mg Tablet PO (08:00)
[2020-07-21] MEDS: ascorbic acid 500 mg Tablet NG-TUBE (08:00)
[2020-07-21] MEDS: aspirin 81 mg EC Tablet XX (08:00)
--- NOTE | 2020-07-21 09:35 | PC.CHAP ---
Pastoral Care Encounter/Spiritual Assessment Type of Contact [] Declined college associate visit [] Patient/Family/Request visit [] Outpatient visit [] Follow-up visit [] Physician referral [] Code/Alert [x] Routine visit [] Staff referral [] Actively dying [x] Patient sleeping [] Family support [] [] Out of room [] Palliative care [] [] Receiving care in room [] Pre-surgical visit [] Trauma [] Long length of stay [] ICU visit [] Other: Relational/Emotional Strength [] Patient feels connected with others/family/visitors/staff [] Distress [] Loneliness/isolation [] Abandonment Spirituality of Patient [] Person of Camelia [] Attends Church of their [place]elia [] Believes in Prayer [] Reads Bible or Restoration materials [] There are Spiritual issues to be addressed Surveying Or Spatial Science Technician Interventions [x] Prayer [] Active listening [] Non-anxious presence [] Spiritual/emotional support [] Crisis/trauma care [] Spiritual counseling [] Bereavement support [] Provided bereavement packet [] Provided Bible/devotional materials [] Provided toy/stuffed animal, coloring book to patient or family member [] Provided Communion [] Anointing/[place] [] Salvation [x] Completed spiritual assessment [] Other: Impact on Illness or Injury [] Angry [] Fearful [] Anxious [] Often cries [] Exhaustion [] Unable to work [] Unable to attend zoroastrianism [] Unable to walk/stand [] Unable to read [] Unable to drive [] Unable to eat/drink [] Unable to sleep [] Unable to be with family [] Patient intubated [] Other: Summary patient not resting well. prayed for comfort and peace during her time of rest. Time spent with patient
--- NOTE | 2020-07-21 09:48 | PC.NURSE ---
Rcvd blood culture results stating 1 of 4 bottles is gram postive cocci with pairs and clusters. Notified care nurse and Dr Malik.
--- NOTE | 2020-07-21 13:01 | PM.DCS ---
Discharge Providers Date of Admission: 07/20/20 16:18 Date of Discharge: July 21, 2020 Attending Provider at Admission: Slade De La Cruz MD Attending Provider at Discharge: Jake Malik MD Primary Care Provider: Lizeth Britton MD Diagnoses at Discharge Discharge Diagnosis (1) AMS (altered mental status): Status: Acute (2) Acute respiratory failure with hypoxia: Status: Acute (3) Pulmonary emboli: Status: Acute (4) UTI (urinary tract infection): Status: Acute (5) NSTEMI (non-ST elevated myocardial infarction): Status: Acute (6) COVID-19: Status: Acute (7) Hyponatremia: Status: Acute (8) Lactic acidosis: Status: Acute (9) Sepsis: Status: Acute (10) CVA (cerebral vascular accident): Status: Acute (11) AD (Alzheimer's disease): Status: Acute (12) Comfort measures only status: Status: Acute Reason for Visit Reason for Visit: DECREASED LOC Hospital Course Hospital Course Bree Hernandes is a 75 year old female with Alzheimer's dementia, alert to self, two-person assist, PEG tube dependent, DNR/DNI recent hospital admission and discharge for sepsis secondary to pneumonia and COVID-19 and hypernatremia and dehydration, history of obstructive uropathy, UTI and pyelonephritis who presents to [facility] due to hypoxia, respiratory distress, desaturations. She presents to the hospital again on July 20. In the ER, white blood cell count 10.2, hemoglobin 9.5, D-dimer 6.9, pH 7.41, PO2 66 on 50% BiPAP, sodium 131, troponin I 34, BNP 686, UA indicated of a UTI with positive nitrates, WBC, blood, CT angiogram of the chest shows small emboli in the right middle lobe, left lingula, infrarenal abdominal aortic aneurysm, head CT showing no acute intracranial abnormality, but does show encephalomalacia in the frontal lobes, septals, bilateral cerebellum, hospitalist team was called for admission She started on broad-spectrum antibiotics for UTI and possible aspiration pneumonia, IV hydration and anticoagulation. Goals of care were discussed in detail with patient's DPOA Ms. Echeverria and daughter in [place]. Discussions were based on the fact,that patient has Alzheimer's dementia, has quite a poor functional status, PEG tube dependent, has developed now pulmonary emboli, likely recurrent aspiration pneumonia, recurrent UTI,NSTEMI, she is suffering. The likelihood of meaningful recovery is fairly unlikely, she has a high risk of morbidity and mortality, high risk of rehospitalizations, high risk of aggressive interventions, some might say that intervention she is already received are's quite aggressive given her status, she is suffering, she is in pain. Given all the above family decided for patient to be transitioned over to comfort care. Patient's treatment was changed as per the goals of care discussion. She has been discharged in hemodynamically stable condition with comfort care measures back to the [facility]. As per the request of family member patient is been discharged on oral antibiotics to be given to continue for 5 more days. Family has been explained in detail that as patient is comfort care blood work will not be done to monitor for kidney functions. Family verbalized understanding. Physical Exam Const: COMMON NORMALS: negative for patient oriented x3 EXAM LIMITATIONS: altered mental status GENERAL APPEARANCE: lethargic, ill appearing and diaphoretic NUTRITIONAL APPEARANCE: thin ORIENTATION/CONSCIOUSNESS: Yes lethargic; not awake, not oriented to person, not oriented to place and not oriented to time HENMT: COMMON NORMALS: normocephalic HEAD & SCALP: normocephalic Eye: COMMON NORMALS: Equal, round and reactive pupils present PUPIL: Yes Equal, round and reactive pupils present Neck/C-Spine: COMMON NORMALS: full ROM, no lymphadenopathy, no JVD and Thyroid normal THYROID: Thyroid normal Lymph: LYMPHATIC: no lymphadenopathy noted Resp: EFFORT & INSPECTION: Yes tachypneic and Yes retractions AUSCULTATION: rhonchi and wheezes Cardio: COMMON NORMALS: no JVD, S1 normal heart sound present, S2 normal heart sound present, No gallops present (Cardio), No clicks present (Cardio) and No murmurs present (Cardio) RATE: tachycardic HEART SOUNDS: S1 normal heart sound present and S2 normal heart sound present GI: COMMON NORMALS: Normal to inspection, nondistended, normoactive bowel sounds present, Soft to palpation, non-tender and No hepatosplenomegaly present PALPATION: Yes Soft to palpation and Yes No hepatosplenomegaly present OTHER: PEG tube in place Extremity: COMMON NORMALS: no pedal edema Neuro: COMMON NORMALS: negative for patient oriented x3 SENSORIUM/ORIENTATION: No oriented to person, No oriented to place, No oriented to time and Yes lethargic Urinary Catheter Management^: Stone: Cath Placed During This Visit: no Reason for Continuing Indwelling Catheter: Hospice/Comfort/Palliative Care Discharge Data Data Completed and Pending: Completed Studies During Hospitalization Category Date Time Status CT angio chest w abd pel w con Stat Cat Scan 07/20/20 11:[address] head wo con* 7 0450 Stat Cat Scan 07/20/20 11:41 Completed XR chest 1V angela ble [id number] Stat Exams 07/20/20 10:01 Completed Pending at discharge Category Date Time Status Basic Metabolic P jacquelyn AM LABS Lab 07/21/20 04:00 Ordered Basic Metabolic P jacquelyn AM LABS Lab 07/22/20 04:00 Ordered Basic Metabolic P jacquelyn AM LABS Lab 07/23/20 04:00 Ordered Blood Culture Sta t Lab 07/20/20 14:20 Results Complete Blood Co unt w/Auto AM LABS Lab 07/21/20 04:00 Ordered Complete Blood Co unt w/Auto AM LABS Lab 07/22/20 04:00 Ordered Complete Blood Co unt w/Auto AM LABS Lab 07/23/20 04:00 Ordered Magnesium AM LABS Lab 07/21/20 04:00 Ordered Magnesium AM LABS Lab 07/22/20 04:00 Ordered Magnesium AM LABS Lab 07/23/20 04:00 Ordered Urine Culture Sta t Lab 07/20/20 11:21 Results Labs from last 24 hours 07/20/20 07/20/20 07/20/20 16:05 14:40 14:20 Lactic Acid (Sepsi s) 2.5 H Troponin T 120 Min adilia 157.0 H Delta Troponin T 23 H* Troponin T Hi Sens 6Hr 153.5 H Troponin T Hi Sens 6Hr Delta 19.5 H* SARS-CoV-2 Ag (Rap id) 07/20/20 13:07 Lactic Acid (Sepsi s) Troponin T 120 Min adilia Delta Troponin T Troponin T Hi Sens 6Hr Troponin T Hi Sens 6Hr Delta SARS-CoV-2 Ag (Rap id) Negative Vitals: Last Vital Signs Temp 98.0 F 07/21/20 11:18 Pulse 84 07/21/20 11:18 Resp 17 07/21/20 11:18 BP 146/73 07/21/20 11:18 Pulse Ox 100 07/21/20 11:18 Discharge Plan Discharge Patient Disposition: Xfer SNF Condition: Stable Prescriptions: New Augmentin 500-125 mg tablet 1 tab PO BID Qty: 10 RF: 0 levofloxacin 250 mg/10 mL solution 500 mg PO DAILY 7 Days Qty: 140 RF: 0 Continued acetaminophen [Tylenol] 325 mg capsule 325 - 650 mg feeding tube Q6H PRN (Reason: Pain) RF: 0 levothyroxine 25 mcg capsule 25 mcg feeding tube QAM RF: 0 magnesium hydroxide [Milk of Magnesia] 400 mg/5 mL Suspension 30 ml PO DAILY PRN (Reason: Constipation) RF: 0 bisacodyl 10 mg Suppository [address] DAILY PRN (Reason: Constipation) RF: 0 ascorbic acid (vitamin C) [Vitamin C] 500 mg Tablet 500 mg ng-tube DAILY Qty: 20 RF: 0 morphine concentrate 100 mg/5 mL (20 mg/mL) Solution See Rx Instructions .ROUTE .COMPLEX RF: 0 loperamide 2 mg Tablet 2 mg feeding tube QID PRN (Reason: Diarrhea) RF: 0 therapeutic multivitamin Tablet 1 tab feeding tube DAILY RF: 0 lorazepam [Lorazepam Intensol] 2 mg/mL Concentrate See Rx Instructions .ROUTE .COMPLEX RF: 0 [place] 5-325 mg tablet 1 tab feeding tube Q6H PRN (Reason: pain) RF: 0 aspirin 81 mg tablet,delayed release (DR/EC) 81 mg feeding tube DAILY RF: 0 Discharge Orders: Discharge Order (Routine); Ordered 07/21/20 Ordered By: Jake Malik Referrals: [facility] [Outside] Lizeth Britton MD [Primary Care Provider] - Discharge Diet: Resume prior tube feeds Discharge Activity: Resume usual activity Patient Instructions: Amoxicillin/Clavulanate Potassium (By mouth), Levofloxacin (By mouth) Activity Restrictions/Additional Instructions: Comfort care Discharge Attestations Time Spent in Discharge Care*: greater than 30 min Specific Discharge Activities: educating and/or supporting family/caregiver, discussing with insurance case manager/social workers/dc planners, documenting/other paperwork and evaluating patient/reviewing data Status at Discharge: Cognitive status at discharge: severely impaired cognition, Behavioral status at discharge: cooperative, Functional status at discharge: bed bound Quality Metrics Clinical Quality Measures During this hospital stay, did patient experience: VTE Contraindication to Overlap Therapy: Medical contraindication (Comfort care) VTE Discharge Education: Other (Comfort care) Coding Level of Care Code Acute Merchandising Execution Associate for Chg Fwd Diagnoses AMS (altered mental status) R41.82 Acute respiratory failure with hypoxia J96.01 Pulmonary emboli I26.99 UTI (urinary tract infection) N39.0 NSTEMI (non-ST elevated myocardial infarction) I21.4 COVID-19 U07.1 Hyponatremia E87.1 Lactic acidosis E87.2 Sepsis A41.9 CVA (cerebral vascular accident) I63.9 AD (Alzheimer's disease) G30.9; F02.80 Comfort measures only status Z51.5
== END 2020-07-21 16:32 | disposition skilled nursing facility (03) ==
LOC: ER 16:08 → MEDSURG 16:19
PROVIDERS: Admitting Provider Family Medicine; Emergency Provider Emergency Medicine; PCP Family Medicine; Visit Provider Student in an Organized Health Care Education/Training Program
DX: A41.9 Sepsis, unspecified organism (principal); R41.82 Altered mental status, unspecified; J96.01 Acute respiratory failure with hypoxia; N39.0 Urinary tract infection, site not specified; J69.0 Pneumonitis due to inhalation of food and vomit; I26.99 Other pulmonary embolism without acute cor pulmonale; E87.1 Hypo-osmolality and hyponatremia; G30.9 Alzheimer's disease, unspecified; F02.80 Dementia in other diseases classified elsewhere, unspecified severity, without behavioral disturbance, psychotic disturbance, mood disturbance, and anxiety; Z86.19 Personal history of other infectious and parasitic diseases; Z79.01 Long term (current) use of anticoagulants; Z66 Do not resuscitate; Z79.82 Long term (current) use of aspirin; I21.4 Non-ST elevation (NSTEMI) myocardial infarction; E87.2 Acidosis; Z51.5 Encounter for palliative care
CPT/HCPCS: 12345; 36415; 36416; 36600; 51702; 70450; 71045; 71275; 74177; 80053; 81001; 82803; 82962; 83605; 83735; 83880; 84484; 85025; 85378; 85610; 87040; 87077; 87086; 87186; 87205; 87426; 87804; 92610; 93005; 94640; 94660; 96361; 96365; 96375; 99283; 99291; G0378; J0131; J0743; J2930; J7030; Q9967